=== PATIENT | female | born 1935 | race Caucasian/White ===

== ENCOUNTER 2018-10-08 10:57 | Inpatient (IN) | payer MEDICARE ==
[~2018-10-08] VITALS: Ht 157.5 cm; Wt 52.1 kg
[2018-10-08] VITALS (9 sets, daily range): BP systolic 113–157; BP diastolic 65–86; O2SAT 96
[2018-10-08] MEDS ORDERED: FURO20TA2 PO (13:01)
[2018-10-08] MEDS ORDERED: NITR2OI TOP (13:01)
[2018-10-08] MEDS ORDERED: PRED10TA2 PO (13:01)
[2018-10-08] MEDS ORDERED: POTA20TA6 PO (13:01)
[2018-10-08] MEDS ORDERED: DOXY100T PO (13:01)
[2018-10-08] MEDS ORDERED: CEFT1INJ5 INJ (13:01)
[2018-10-08] MEDS ORDERED: OMEP-221 PO (13:01)
[2018-10-08] MEDS ORDERED: METO50TA7 PO (13:01)
[2018-10-08] MEDS ORDERED: MELO7.5T35 PO (13:01)
[2018-10-08] MEDS ORDERED: FLON1SPR (13:01)
[2018-10-08] MEDS ORDERED: ZETI10TA30 PO (13:01)
[2018-10-08] MEDS ORDERED: COMBAER6 INH (13:01)
[2018-10-08] MEDS ORDERED: CLAR10CA3 PO (13:01)
[2018-10-08] MEDS ORDERED: METO5INJ15 IV (13:01)
[2018-10-08] MEDS ORDERED: METH40VIAL IM (13:01)
[2018-10-08] MEDS ORDERED: SYMB16INH INH (13:01)
[2018-10-08] MEDS ORDERED: PRED5TA PO (13:01)
[2018-10-08] MEDS ORDERED: FERR325T18 PO (13:01)
[2018-10-08] MEDS ORDERED: CART180C3 PO (13:01)
[2018-10-08 13:03] LABS: ABG BASE EXCESS 0.7 (-2.0-2.0); ABG HCO3 27.3 MEQ/L (22.0-26.0); ABG O2 SATURATION 94.4 % (95.0-99.0); ABG PARTIAL PRESSURE CO2 52.3 mmHg (35.0-45.0); ABG PARTIAL PRESSURE O2 76.7 mmHg (75.0-100.0); ABG TOTAL CO2 28.9 MEQ/L (23.0-31.0); ABG pH (ARTERIAL) 7.336 UNITS (7.350-7.450)
[2018-10-08 13:05] LABS: HEMATOCRIT 37.9 % (36.0-47.0); HEMOGLOBIN 12.1 g/dl (12.0-15.5); MEAN CORPUSCULAR HGB CONC 31.9 g/dl (32.0-36.5); PLATELET COUNT, AUTOMATED 342 10^3/uL (150-450); RED BLOOD COUNT 4.03 10^6/uL (4.00-5.40); WHITE BLOOD COUNT 21.5 10^3/uL (4.0-10.0)
--- NOTE | 2018-10-08 13:09 | ECGEPIP ---
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 Sinus tachycardia Otherwise normal Electronically Signed On 10-08-2018 13:08:57 EDT by Zack Zuluaga
--- NOTE | 2018-10-08 13:13 | REP ---
Portable chest x-ray: Single view. History: Shortness of breath. No comparison study. Findings: There are areas of increased parenchymal opacity in both lung bases consistent with bibasilar pneumonia. The upper lobes are clear. Heart is not felt to be enlarged. The aorta is tortuous and somewhat calcific. No significant bony abnormality. There is diffuse osteopenia. Impression: Bilateral lower lobe infiltrates consistent with pneumonia. Electronically Signed by Juan David Rawls MD 10/08/2018 01:05 P
[2018-10-08] MEDS ORDERED: LEVALBUTEROL 1.25 MG/0.5 ML CONCENTRATE NEB INH PRN (13:15)
[2018-10-08 13:32] LABS: ALBUMIN 3.4 GM/DL (3.2-5.2); BILIRUBIN,TOTAL 0.4 MG/DL (0.2-1.0); CALCIUM LEVEL 8.8 MG/DL (8.8-10.2); CREATININE FOR GFR 1.12 MG/DL (0.55-1.30); GLOMERULAR FILTRATION RATE 49.6 (>32); MB/CK RELATIVE INDEX 13.5 (< OR =4); POTASSIUM SERUM 4.4 MEQ/L (3.5-5.1); TOTAL PROTEIN 6.2 GM/DL (6.4-8.2); TROPONIN I 1.05 NG/ML (< 0.10)
[2018-10-08] MEDS ORDERED: methylPREDNISolone INJ 125 MG/2 ML VIAL (J2930) IV SCH (14:00)
[2018-10-08] MEDS ORDERED: DOXYCYCLINE HYCLATE 100 MG in D5W MINI-BAG PLUS 100 ML IV SCH (14:00)
--- NOTE | 2018-10-08 14:36 | HPE ---
DATE OF ADMISSION: 10/08/2018 PRIMARY CARE PROVIDER: Dr. Verma/Dr. Baker in [place]. CHIEF COMPLAINT: Shortness of breath. HISTORY OF PRESENT ILLNESS: This is an 83-year-old, DO NOT RESUSCITATE, DO NOT INTUBATE female who follows with Dr. Jim Lucas at [facility] for end stage chronic obstructive pulmonary disease (COPD) and on chronic 2 liters of oxygen for the past 3 year, presents to the emergency room with a 1 week complaint of worsening shortness of breath, increase in sputum production that is greenish in color and without fever but with subjective chills. The patient has not had any sick exposures despite nebulizer treatments every 4 hours at home, the patient has had worsening symptoms, prompting her to present to the emergency room at [facility]. The patient had been treated as an outpatient with prednisone and doxycycline with no relief. She was with her granddaughter and has had dyspnea on exertion with 10 to 15 feet difficulty with ambulation due to shortness of breath. The patient otherwise denies any rhinorrhea or sore throat. She denies any diarrhea. She has had decreased oral intake due to the respiratory distress. She then presented to the emergency room at [facility] at approximately 8:00 a.m. and was given Xopenex inhalers with no significant improvement. Arterial blood gas at this time showed respiratory acidosis requiring bilevel positive airway pressure (BIPAP) therapy, which she had for about 3 hours. The patient was subsequently transferred to [facility] for pulmonary referral. On arrival, the patient appeared to be comfortable on 2 liters of oxygen. She has had less distress according to the granddaughter present at the bedside. She otherwise denies any chest pain, pressure or tightness, lightheadedness or dizziness, but did complain of some palpitations and was then noted to have sinus tachycardia with a ventricular rate of 120 to 130 on the telemetry unit. The patient's blood pressure was well maintained at 107 to about 115. Arterial blood gas is still pending at [facility]. The patient has had similar episodes in the past, about 7 years according to the family. She denies any prior history of coronary artery disease, myocardial infarction or congestive heart failure (CHF). She usually has no lower extremity edema. Has had no recent weight gain. Aside from decrease in appetite, the patient otherwise denies any dysuria, urgency or frequency. No sick contacts. She denies any muscle aches but complains of shoulder pain, which she attributes to arthritis. Electrocardiogram (EKG) at the bedside shows right axis deviation with ventricular rate of [address]-T wave changes, supraventricular tachycardia (SVT). Chest x-ray is still pending. Hospitalist was called to admit for acute hypoxic and hypercarbic respiratory failure, which improved with BiPAP therapy at [facility] and acute COPD exacerbation. PAST MEDICAL HISTORY: 1. COPD, emphysema. 2. Hypertension. 3. History of fibroid uterus with hysterectomy. 4. Hypercholesterolemia. PAST SURGICAL HISTORY: 1. Appendectomy. 2. Tubal ligation. 3. Bladder suspension. 4. Fibroid removal with hysterectomy. 5. Breast lumpectomy, which was benign. ALLERGIES: OLANZAPINE, AMOXICILLIN, ATORVASTATIN, LEVAQUIN. HOME MEDICATIONS: Please see below. FAMILY HISTORY: Noncontributory due to age. SOCIAL HISTORY: Currently lives with her granddaughter. Quit smoking April 1998, previously smoked 1-1/2 packs per day for 60 years. Healthcare proxy is Ari Loving, phone number is [phone]. The patient is DO NOT RESUSCITATE, DO NOT INTUBATE. Medical Orders for Life Sustaining Treatment (MOLST) form has been signed. Granddaughter and the nurse present. REVIEW OF SYSTEMS: As per history of present illness, 12-point system is otherwise negative. PHYSICAL EXAMINATION: VITAL SIGNS: Temperature 97.9, pulse 118 and sinus, respiratory rate 25, blood pressure 115/60, 94% on 2 liters nasal cannula. GENERAL: The patient is in mild respiratory distress. She is sitting at 90 degrees with respiratory distress. There is no nasal flaring. No tracheal deviation. No pallor or icterus. No jugular venous distention (JVD). She was able to speak in complete sentences. Mild conversational dyspnea. She has poor dentition with false teeth. LUNGS: Diminished. Expiratory wheezing with prolonged expiration. Increase in AP diameter. HEART: S1, S2. Sinus tachycardia. ABDOMEN: Scaphoid. Positive bowel sounds in all four quadrants. No hepatosplenomegaly. EXTREMITIES: No pitting edema, cyanosis. EKG showed sinus rhythm with ventricular rate of 122, right axis deviation. No acute ST-T wave changes. LABORATORY DATA: White count 21.5, hemoglobin 12, hematocrit 37, platelets 342. Metabolic panel, liver function tests, cardiac markers, procalcitonin are all pending, as well as lactic acid. Arterial blood gas showed pH of 7.336, CO2 of 52, O2 of 76, bicarbonate 27. Blood cultures pending. Urinalysis is pending. Chest x-ray is pending. ASSESSMENT AND PLAN: This is an 83-year-old female with a past medical history significant for hypertension, chronic obstructive pulmonary disease (COPD), history of breast lumpectomy, who presents with acute hypoxic, hypercarbic respiratory failure and was transferred from [facility] to [facility]. ACUTE ISSUES: 1. Acute chronic obstructive pulmonary disease (COPD) exacerbation. The patient will be given Solu-Medrol, nebulizer treatments every 4 hours and every 2 hours as needed. Continue on oxygen and titrate to 88 to 92%. Depending on blood gas, we will consult pulmonary. 2. Hypertension, resume on home medications. Current blood pressure is adequate. 3. History of breast tumor, which was negative, status post lumpectomy. 4. Chronic hypoxic respiratory failure on 2 liters of home oxygen. Continue with the same. 5. 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 6. Deep vein thrombosis (DVT) prophylaxis with renally dosed Lovenox. CODE STATUS: DO NOT RESUSCITATE, DO NOT INTUBATE.
[2018-10-08] MEDS ORDERED: DIGOXIN INJ 0.5 MG/2 ML AMP (J1160) IV STA (14:42)
[2018-10-08] MEDS: LEVALBUTEROL 1.25 MG/0.5 ML CONCENTRATE NEB INH SCH ×2 (15:30→20:25)
[2018-10-08] MEDS: IPRATROPIUM 0.02% SOLN 0.5MG/2.5 ML NEB NEB SCH ×2 (15:51→20:24)
[2018-10-08] MEDS ORDERED: CLOPIDOGREL 75 MG TAB PO STA (17:42)
[2018-10-08] MEDS ORDERED: AZITHROMYCIN INJ 500 MG, VIAL MATE ADAPTER 1 EACH in D5W 250 ML IV ONE (17:45)
[2018-10-08] MEDS ORDERED: NITROGLYCERIN 0.4 MG SUBL TABLET SL PRN (17:45)
[2018-10-08] MEDS ORDERED: methylPREDNISolone INJ 125 MG/2 ML VIAL (J2930) IV ONE (17:45)
[2018-10-08] MEDS ORDERED: ASPIRIN 81 MG CHEW TABLET PO ONE (17:45)
[2018-10-08] MEDS ORDERED: LEVALBUTEROL 1.25 MG/0.5 ML CONCENTRATE NEB NEB ONE (17:45)
--- NOTE | 2018-10-08 17:48 | IPNPDOC ---
Date Seen The patient was seen on 10/08/18. Progress Note ASSESSMENT/PLAN: NSTEMI: -c/o sob, elevated card ruffin -rx: prn ntg for chest pain, asa, plavix, lovenox. statin -cycle card ruffin, ekg -check echo B/L BIBASILAR HCAP -transferred from [facility] -at risk for MRSA infection -check MRSA screen -allergic to zosyn, meropenem renally dosed TACHYARRHYTMIA -Recheck EKG -correct hypoxia with treatment for copd with solumedrol, nebs, o2 repeat o2 sat. -check d-dimer, CT chest to r/o PE if stable. if unstable, on lovenox for NSTEMI. VS, I&O, 24H, Fishbone Vital Signs/I&O Vital Signs Date Time Temp Pulse Resp B/P (MAP) Pulse Ox O2 Delivery O2 Flow Rate FiO2 10/08/18 16:00 2.0 10/08/18 15:00 135 28 119/78 (92) 93 10/08/18 11:50 97.9 Laboratory Data 24H LABS Laboratory Tests 2 10/08/18 12:52: Blood Gas Bicarbonate Standard 25.0, Arterial Blood pH 7.336L, Arterial Blood Partial Pressure CO2 52.3H, Arterial Blood Partial Pressure O2 76.7, Arterial Blood Total CO2 28.9, Arterial Blood HCO3 27.3H, Arterial Blood Base Excess 0.7, Arterial Blood Oxygen Saturation 94.4L 10/08/18 12:56: Nucleated Red Blood Cells % (auto) 0.0, Anion Gap 7L, Glomerular Filtration Rate 49.6, Lactic Acid Level 2.0, Blood Urea Nitrogen 25H, Creatinine 1.12, Sodium Level 135L, Potassium Level 4.4, Chloride Level 98, Carbon Dioxide Level 30, Calcium Level 8.8, Aspartate Amino Transf (AST/SGOT) 29, Alanine Aminotransferase (ALT/SGPT) 32, Total Creatine Kinase 103, Alkaline Phosphatase 66, Total Bilirubin 0.4, Total Protein 6.2L, Albumin 3.4, Creatine Kinase MB 14.0H, Creatine Kinase MB Relative Index 13.50H, Troponin I 1.05H, Albumin/Globulin Ratio 1.21 10/08/18 13:47: Urine Color TL, Urine Appearance HAZY, Urine pH 5.0, Urine Specific [place] 1.014, Urine Protein 2+H, Urine Glucose (UA) NEGATIVE, Urine Ketones NEGATIVE, Urine Blood NEGATIVE, Urine Nitrite NEGATIVE, Urine Bilirubin NEGATIVE, Urine Urobilinogen 0.2, Urine Leukocyte Esterase NEGATIVE, Urine WBC (Auto) 17H, Urine RBC (Auto) 4H, Urine Hyaline Casts (Auto) 12, Urine Bacteria (Auto) 1+H, Urine Squamous Epithelial Cells 1, Urine Granular Casts (Auto) 55, Urine Mucus (Auto) SMALL, Urine Sperm (Auto) CBC/BMP Laboratory Tests 10/08/18 12:56 Red Blood Count 4.03, Mean Corpuscular Volume 94.0, Mean Corpuscular Hemoglobin 30.0, Mean Corpuscular Hemoglobin Concent 31.9 L, Red Cell Distribution Width 12.9, Calcium Level 8.8, Aspartate Amino Transf (AST/SGOT) 29, Alanine Aminotra nsferase (ALT/SGPT) 32, Total Creatine Kinase 103, Alkaline Phosphatase 66, Total Bilirubin 0.4, Total Protein 6.2 L, Albumin 3.4 Microbiology Microbiology 10/08/18 Blood Culture, Received Pending 10/08/18 Respiratory Virus Panel (PCR) (MAY) - Final, Complete Parainfluenza 3 (Piv3) 10/08/18 Urine Culture, Received Pending HETAL ALMANZAR MD Oct 08, 2018 17:48
[2018-10-08 18:00] LABS: ABG BASE EXCESS -1.4 (-2.0-2.0); ABG HCO3 25.9 MEQ/L (22.0-26.0); ABG O2 SATURATION 88.8 % (95.0-99.0); ABG PARTIAL PRESSURE CO2 54.5 mmHg (35.0-45.0); ABG STANDARD HCO3 23.1 MEQ/L (22.0-26.0); ABG TOTAL CO2 27.6 MEQ/L (23.0-31.0); ABG pH (ARTERIAL) 7.295 UNITS (7.350-7.450)
[2018-10-08] MEDS: ENOXAPARIN 60 MG/0.6 ML SYR (J1650) SC SCH (18:38)
[2018-10-08 19:04] LABS: MB/CK RELATIVE INDEX 12.83 (< OR =4); TROPONIN I 1.12 NG/ML (< 0.10)
[2018-10-08] MEDS: MEROPENEM INJ 500 MG in APPROPRIATE DILUENT 1 EA IV SCH (20:00)
[2018-10-08 21:13] LABS: ABG BASE EXCESS 4.4 (-2.0-2.0); ABG HCO3 29.9 MEQ/L (22.0-26.0); ABG O2 SATURATION 97.1 % (95.0-99.0); ABG PARTIAL PRESSURE CO2 48.2 mmHg (35.0-45.0); ABG PARTIAL PRESSURE O2 95.4 mmHg (75.0-100.0); ABG STANDARD HCO3 28.4 MEQ/L (22.0-26.0); ABG TOTAL CO2 31.3 MEQ/L (23.0-31.0)
[2018-10-09] VITALS (16 sets, daily range): BP systolic 103–162; BP diastolic 63–103; O2SAT 97–98
[2018-10-09 00:33] LABS: MB/CK RELATIVE INDEX 16.99 (< OR =4); TROPONIN I 1.79 NG/ML (< 0.10)
[2018-10-09] MEDS: LEVALBUTEROL 1.25 MG/0.5 ML CONCENTRATE NEB INH SCH ×6 (00:42→20:05)
[2018-10-09] MEDS: IPRATROPIUM 0.02% SOLN 0.5MG/2.5 ML NEB NEB SCH ×6 (00:48→20:05)
[2018-10-09] MEDS ORDERED: DIGOXIN INJ 0.5 MG/2 ML AMP (J1160) IV STA (02:36)
[2018-10-09] MEDS: MEROPENEM INJ 500 MG in APPROPRIATE DILUENT 1 EA IV SCH ×3 (04:30→19:56)
--- NOTE | 2018-10-09 05:49 | IPNPDOC ---
Text Note Date of Service The patient was seen on 10/09/18. NOTE NIGHT FLOAT NOTE Patient noted to have a rising troponin overnight from 1.12 to 1.79. Chart reviewed. Patient examined in ICU and noted to be comfortable and at rest. No chest pain. She is already being treated for NSTEMI. Given that she is here for COPD exacerbation, will continue withholding beta olesya. Given her fragile condition, she is likely not a candidate for cardiac cath currently, noting her respiratory failure currently requiring BiPAP. She is due to have repeat cardiac markers in the morning. Will await am labs and consider consulting Cardio. Later through the night, patient reported to be tachycardic and symptomatic with heart rate in 150s, feeling short of breath and racing heart. One time doses of digoxin and Cardizem were ordered. Patient initially received Cardizem and returned back to heart rate in 90s and symptoms resolved as well. Digoxin was not needed and DC'd. VS,Fishbone, I+O VS, Fishbone, I+O Laboratory Tests 10/08/18 12:56 Red Blood Count 4.03, Mean Corpuscular Volume 94.0, Mean Corpuscular Hemoglobin 30.0, Mean Corpuscular Hemoglobin Concent 31.9 L, Red Cell Distribution Width 12.9, Calcium Level 8.8, Aspartate Amino Transf (AST/SGOT) 29, Alanine Aminotransferase (ALT/SGPT) 32, Total Creatine Kinase 103, Alkaline Phosphatase 66, Total Bilirubin 0.4, Total Protein 6.2 L, Albumin 3.4 Vital Signs Date Time Temp Pulse Resp B/P (MAP) Pulse Ox O2 Delivery O2 Flow Rate FiO2 10/09/18 04:00 98 BIPAP/CPAP 30 10/09/18 03:00 101 136/65 (88) 10/09/18 02:31 32 10/09/18 00:00 97.4 10/08/18 18:00 2.0 I&O- Last 24 Hours up to 6 AM 10/09/18 06:00 Intake Total 590 ml Output Total 950 ml Balance -360 ml GME ATTESTATION GME ATTESTATION My faculty preceptor for this patient encounter was physically present during the encounter and was fully available. All aspects of the patient interview, examination, medical decision making process, and medical care plan development were reviewed and approved by the faculty preceptor. The faculty preceptor is aware and concurs with the plan as stated in the body of this note and will attest to such by his/her cosignature. NILA GUTIÉRREZ DO Oct 09, 2018 05:49
[2018-10-09] MEDS: ENOXAPARIN 60 MG/0.6 ML SYR (J1650) SC SCH ×2 (06:00→18:47)
[2018-10-09] MEDS: methylPREDNISolone INJ 125 MG/2 ML VIAL (J2930) IV SCH ×3 (06:00→11:06)
[2018-10-09 06:20] LABS: HEMATOCRIT 35.7 % (36.0-47.0); HEMOGLOBIN 11.6 g/dl (12.0-15.5); MEAN CORPUSCULAR HGB CONC 32.5 g/dl (32.0-36.5); MEAN CORPUSCULAR VOLUME 92.2 fl (80.0-96.0); PLATELET COUNT, AUTOMATED 296 10^3/uL (150-450); RED BLOOD COUNT 3.87 10^6/uL (4.00-5.40); WHITE BLOOD COUNT 13.5 10^3/uL (4.0-10.0)
[2018-10-09 06:43] LABS: BLOOD UREA NITROGEN 26 MG/DL (7-18); CALCIUM LEVEL 8.6 MG/DL (8.8-10.2); CARBON DIOXIDE LEVEL 31 MEQ/L (21-32); CHLORIDE LEVEL 98 MEQ/L (98-107); CPK CREATINE PHOSPHOKINASE 64 U/L (26-192); CREATININE FOR GFR 0.72 MG/DL (0.55-1.30); GLOMERULAR FILTRATION RATE > 60.0 (>32); GLUCOSE, FASTING 119 MG/DL (70-100); POTASSIUM SERUM 4.2 MEQ/L (3.5-5.1); SODIUM LEVEL 135 MEQ/L (136-145); TROPONIN I 1.28 NG/ML (< 0.10)
[2018-10-09 06:50] LABS: MB/CK RELATIVE INDEX 18.12 (< OR =4)
[2018-10-09] MEDS: FORMOTEROL FUMARATE 20 MCG/2 ML INHALATION SOLUTION (PERFOROMIST) INH SCH ×2 (08:00→20:00)
[2018-10-09] MEDS: TIOTROPIUM INHALER/CAPSULE (SPIRIVA) INH SCH (08:00)
[2018-10-09] MEDS: CLOPIDOGREL 75 MG TAB PO SCH (08:56)
[2018-10-09] MEDS: AZITHROMYCIN 250 MG TAB PO SCH (08:57)
[2018-10-09] MEDS: ASPIRIN 81 MG CHEW TABLET PO SCH (08:57)
[2018-10-09] MEDS: CARVedilol 3.125 MG TAB PO SCH ×2 (08:57→21:24)
--- NOTE | 2018-10-09 11:39 | IPNPDOC ---
Date Seen The patient was seen on 10/09/18. Progress Note SUBJECTIVE: pt was placed on bipap due to acute respiratory acidosis managed by pulm Dr. Wu. Due to demand-mediated ischemia with NSTEMI and new dx of bibasilar PNA, pt was treated with abx, antiplatelets. She feels much better this morning. She continues to have sob, but without chest pain, pressure, and tightness. nofevers overnight.denies any chills. nonproductive cough. OBJECTIVE PHYSICAL EXAMINATION: VITAL SIGNS: pls see below. BIPAP GENERAL: cachectic The patient is in respiratory distress. She is sitting at 90 degrees No tracheal deviation No pallor or icterus. No jugular venous distention (JVD). conversational dyspnea. LUNGS: Diminished. Expiratory wheezing with prolonged expiration. Increase in AP diameter. HEART: S1, S2. Sinus tachycardia. ABDOMEN: Scaphoid. Positive bowel sounds in all four quadrants. No hepatosplenomegaly. EXTREMITIES: No pitting edema, cyanosis. LABORATORY DATA, IMAGING STUDIES, MICROBIOLOGY: PLS SEE BELOW ASSESSMENT AND PLAN: This is an 83-year-old female with a past medical history significant for hypertension, chronic obstructive pulmonary disease (COPD), history of breast lumpectomy, who presents with acute hypoxic, hypercarbic respiratory failure and was transferred from [facility] to [facility]. Demand-mediated Ischemia /NSTEMI -due to bibasilar HCAP, parinfluenza, Acute respiratory acidosis, acute COPD exacerbation -c/o sob, elevated card ruffin -rx: prn ntg for chest pain, asa, plavix, lovenox. statin, coreg -cycle card ruffin, ekg -check echo B/L BIBASILAR HCAP -transferred from [facility] -at risk for MRSA infection -check MRSA screen -allergic to zosyn, meropenem renally dosed, AND azithromycin for atypicals. -check legionells, strep pneumo, sputum cx Parainfluenza viral infection -complicating acute copd exacerbation and acute respiratory acidosis -supportive care -supplemental o2 TACHYARRHYTMIA -Recheck EKG -correct hypoxia with treatment for copd with solumedrol, nebs, o2 repeat o2 sat. -check d-dimer, CT chest to r/o PE if stable. if unstable, on lovenox for NSTEMI. Acute chronic obstructive pulmonary disease (COPD) exacerbation. The patient will be given Solu-Medrol, nebulizer treatments every 4 hours and every 2 hours as needed. Continue on oxygen and titrate to 88 to 92%. Depending on blood gas, we will consult pulmonary. Hypertension, resume on home medications. Current blood pressure is adequate. History of breast tumor, which was negative, status post lumpectomy. Chronic hypoxic respiratory failure on 2 liters of home oxygen. Continue with the same. 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 Deep vein thrombosis (DVT) prophylaxis with renally dosed Lovenox. CODE STATUS: DO NOT RESUSCITATE, DO NOT INTUBATE. VS, I&O, 24H, [facility] Vital Signs/I&O Vital Signs Date Time Temp Pulse Resp B/P (MAP) Pulse Ox O2 Delivery O2 Flow Rate FiO2 10/09/18 08:57 141/71 10/09/18 08:13 30 10/09/18 08:00 98.9 25 97 2.0 10/09/18 06:00 102 10/09/18 04:00 BIPAP/CPAP I&O- Last 24 Hours up to 6 AM 10/09/18 06:00 Intake Total 590 ml Output Total 1010 ml Balance -420 ml Laboratory Data 24H LABS Laboratory Tests 2 10/08/18 12:52: Blood Gas Bicarbonate Standard 25.0, Arterial Blood pH 7.336L, Arterial Blood Partial Pressure CO2 52.3H, Arterial Blood Partial Pressure O2 76.7, Arterial Blood Total CO2 28.9, Arterial Blood HCO3 27.3H, Arterial Blood Base Excess 0.7, Arterial Blood Oxygen Saturation 94.4L 10/08/18 12:56: Nucleated Red Blood Cells % (auto) 0.0, Anion Gap 7L, Glomerular Filtration Rate 49.6, Lactic Acid Level 2.0, Blood Urea Nitrogen 25H, Creatinine 1.12, Sodium Level 135L, Potassium Level 4.4, Chloride Level 98, Carbon Dioxide Level 30, Calcium Level 8.8, Aspartate Amino Transf (AST/SGOT) 29, Alanine Aminotransferase (ALT/SGPT) 32, Total Creatine Kinase 103, Alkaline Phosphatase 66, Total Bilirubin 0.4, Total Protein 6.2L, Albumin 3.4, Creatine Kinase MB 14.0H, Creatine Kinase MB Relative Index 13.50H, Troponin I 1.05H, Albumin/Globulin Ratio 1.21 10/08/18 13:47: Urine Color TL, Urine Appearance HAZY, Urine pH 5.0, Urine Specific [place] 1.014, Urine Protein 2+H, Urine Glucose (UA) NEGATIVE, Urine Ketones NEGATIVE, Urine Blood NEGATIVE, Urine Nitrite NEGATIVE, Urine Bilirubin NEGATIVE, Urine Urobilinogen 0.2, Urine Leukocyte Esterase NEGATIVE, Urine WBC (Auto) 17H, Urine RBC (Auto) 4H, Urine Hyaline Casts (Auto) 12, Urine Bacteria (Auto) 1+H, Urine Squamous Epithelial Cells 1, Urine Granular Casts (Auto) 55, Urine Mucus (Auto) SMALL, Urine Sperm (Auto) 10/08/18 17:49: Blood Gas Bicarbonate Standard 23.1, Arterial Blood pH 7.295L, Arterial Blood Partial Pressure CO2 54.5H, Arterial Blood Partial Pressure O2 62.0L, Arterial Blood Total CO2 27.6, Arterial Blood HCO3 25.9, Arterial Blood Base Excess -1.4, Arterial Blood Oxygen Saturation 88.8L 10/08/18 18:05: 10/08/18 18:14: D-Dimer, Quantitative 3515.82H, Total Creatine Kinase 138, Creatine Kinase MB 18.0H, Creatine Kinase MB Relative Index 12.83H, Troponin I 1.12H, [id number] Natriuretic Peptide 6831H 10/08/18 21:07: Blood Gas Bicarbonate Standard 28.4H, Arterial Blood pH 7.410, Arterial Blood Partial Pressure CO2 48.2H, Arterial Blood Partial Pressure O2 95.4, Arterial Blood Total CO2 31.3H, Arterial Blood HCO3 29.9H, Arterial Blood Base Excess 4.4H, Arterial Blood Oxygen Saturation 97.1 10/08/18 23:48: Total Creatine Kinase 83, Creatine Kinase MB 14.0H, Creatine Kinase MB Relative Index 16.99H, Troponin I 1.79#*H 10/09/18 05:56: Nucleated Red Blood Cells % (auto) 0.0, Anion Gap 6L, Glomerular Filtration Rate > 60.0, Blood Urea Nitrogen 26H, Creatinine 0.72, Sodium Level 135L, Potassium Level 4.2, Chloride Level 98, Carbon Dioxide Level 31, Calcium Level 8.6L, Total Creatine Kinase 64, Creatine Kinase MB 12.0H, Creatine Kinase MB Relative Index 18.12H, Troponin I 1.28#H CBC/BMP Laboratory Tests 10/08/18 12:56 Red Blood Count 4.03, Mean Corpuscular Volume 94.0, Mean Corpuscular Hemoglobin 30.0, Mean Corpuscular Hemoglobin Concent 31.9 L, Red Cell Distribution Width 12.9, Calcium Level 8.8, Aspartate Amino Transf (AST/SGOT) 29, Alanine Aminotransferase (ALT/SGPT) 32, Total Creatine Kinase 103, Alkaline Phosphatase 66, Total Bilirubin 0.4, Total Protein 6.2 L, Albumin 3.4 10/09/18 05:56 Red Blood Count 3.87 L, Mean Corpuscular Volume 92.2, Mean Corpuscular Hemoglobin 30.0, Mean Corpuscular Hemoglobin Concent 32.5, Red Cell Distribution Width 12.9, Calcium Level 8.6 L, Total Creatine Kinase 64 Microbiology Microbiology 10/08/18 Blood Culture, Received Pending 10/09/18 Gram Stain - Final, Resulted 10/09/18 Sputum Culture, Resulted Pending 10/08/18 MRSA Screen, Received Pending 10/08/18 Respiratory Virus Panel (PCR) (MAY) - Final, Complete Parainfluenza 3 (Piv3) 10/08/18 Urine Culture - Final, Complete HETAL ALMANZAR MD Oct 09, 2018 11:33
[2018-10-09 12:52] LABS: MB/CK RELATIVE INDEX 16.98 (< OR =4); TROPONIN I 1.25 NG/ML (< 0.10)
--- NOTE | 2018-10-09 13:39 | CR ---
DATE OF CONSULTATION: 10/09/2018 I was asked by Dr. Jamil to urgently evaluate Ms. Madeline Parsons for acute on chronic hypercapnic and hypoxemic respiratory failure. Ms. Parsons is an 83-year-old female who I first heard about from [facility]. She had presented there yesterday with worsened shortness of breath and had acute on chronic hypercapnic failure with a pCO2 of around 7.18. Apparently she initially refused noninvasive mechanical ventilation and they were going to intubate her. However, they waited for a repeat blood after having given her multiple nebulizations and intravenous corticosteroids. Her blood gas at that time was improved to I believe around 7.25. They were going to try to reintroduce noninvasive mechanical ventilation at that time. Later, when we heard back it was reported to me that she again declined it, but they repeated another gas and at this point she was 7.31 on 2.5 liters and was felt stable for transport. When she first arrived here she was doing well and no intervention was thought necessary. In fact, her initial blood gas after arrival here was 7.34 and 52. Later in the day, she appeared to have worsening respiratory distress and a repeat blood gas at that time had shown a pH of 7.30 and 55. It was at that point that we asked to intervene with noninvasive mechanical ventilation. At this time, she was accepting of the mask and tolerated it well overnight. A repeat blood gas on that device had shown normalization several hours after starting it. This morning, she feels much better. In fact, she does not recall even going to [facility] yesterday. She still does not feel at baseline. Ms. Parsons perhaps a week ago with a cough productive or green sputum, subjective chills and worsening shortness of breath. She was seen a couple of days prior to her presentation yesterday and was given a prednisone burst and placed on doxycycline. When her symptoms worsened, she was brought to the emergency department. At her baseline she states that she can do her own house cleaning. She has 12 stairs up to her bedroom and she can walk up the stairs, and does not always need to stop part way, but often does. She does use the handrail to go upstairs. She believes that she can walk around a hospital room 3-4 times when she is well. She also believes she can speak and sentences that are 4-5 words in length. She has been on oxygen for at least 2 years continuously and was on it at night before that. She reports that she uses 3.5 to 4 liters at baseline and increases that to 5 when she ambulates. She is followed by Dr. Lucas as an outpatient. In reviewing the medications on admission, assuming they are complete, she is on Symbicort 160/4.5 and prednisone daily in addition to nebulized and MDI rescue medications. She denies chest pain or pressure, nausea, emesis. She does not believe she has been febrile. No lower extremity edema. She denies orthopnea or paroxysmal nocturnal dyspnea (PND). She does note leaning forward slightly when she is sitting. She can sleep relatively flat with a neck cushion. She feels her cough is improved, but again not back to baseline. ALLERGIES: 1. ALENDRONATE SODIUM. 2. AMOXICILLIN. 3. ATORVASTATIN. 4. IBANDRONATE SODIUM. 5. LEVOFLOXACIN. 6. QUININE. 7. RISEDRONATE SODIUM. I do not know what happens with these medications. PAST MEDICAL HISTORY: 1. 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 Lucas. 2. Hypertension. 3. History of fibroid uterus with hysterectomy. 4. Dyslipidemia. 5. Status post appendectomy. 6. Status post tubal ligation. 7. Status post bladder suspension. 8. History of tobacco usage. 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 She is a former smoker but states she has not smoked in over 20 years. Prior to that, however, she smoked 1-1/2 packs for 60 years giving her a 90 pack year history. She does not drink alcohol. FAMILY HISTORY: She has a sister with Parkinson's disease. She believes her grandfather may have also had Parkinson's disease. Her mother had heart disease. She believes her father was relatively health. REVIEW OF SYSTEMS: As per HPI. Remainder of pertinent review of systems are negative. PHYSICAL EXAMINATION: GENERAL: Ms. Parsons is lying in bed in mild respiratory distress. She is using supraclavicular muscles. She is able to complete short sentences, perhaps 5-7 works. VITAL SIGNS: Temperature 98.9, which is her T-max. Respiratory rate 25, blood pressure 141/71 with a MAP of 94. SpO2 is 97% on 3 liters by nasal cannula. Pulse 102. HEENT: Anicteric. Pupils equal, round, and reactive to light and accommodation. Nares: Patient bilaterally. Oropharynx clear. Moist mucosa. Neck supple, without thyromegaly or masses, trachea is midline. She has hypertrophied supraclavicular muscles. LYMPH: Without cervical or supraclavicular lymphadenopathy. CHEST: Increased AP diameter. LUNGS: Symmetric excursion, markedly diminished air entry. No wheeze, rhonchi or crackles on tidaled excursion. Prolonged expiratory phase. Uses supraclavicular muscles. No retractions. CARDIOVASCULAR: Tachycardic, regular rhythm with occasional ectopic beat. Normal S1 and S2. No murmur, rub or gallop appreciated. Unable to appreciate PMI. ABDOMEN: Positive bowel sounds. Soft, nondistended. Nontender. No hepatosplenomegaly or masses appreciated. EXTREMITIES: Without clubbing, cyanosis, or significant edema. NEURO: Alert, awake and oriented times three. PSYCHIATRIC: Affect appropriate. LABORATORY DATA: CBC shows a hemoglobin of 11.6, hematocrit 35.7, platelet count 296,000, white blood cell count 13,500. Chemistries show sodium 135, potassium 4.2, chloride 98, bicarbonate 31, anion gap 6, BUN 26, creatinine 0.7, glucose 119, calcium 8.6, CK 65, CK-MB 12, troponin I 1.28 with a max troponin I of 1.79. ProBNP yesterday was 6831. Other laboratory values from 10/08 include a total bilirubin of 0.4, AST 29, ALT 32, alkaline phosphatase 66, CK 103, total protein 6.2, and albumin of 3.4. Arterial blood gas after being on noninvasive mechanical ventilation at 16/ was 7.41/48/95 with a measured saturation of 97.1 and a base excess of 4.4. Yesterday 's intake and output was 420 in and 650 out making her -230. Thus far today, 230 in and 495 out making her -265. I reviewed her chest x-ray while as well as the report from 10/08/2018. That x-ray showed normal appearing cardiac silhouette, perhaps slightly enlarged pulmonary vascular shadows. There is increased markings in both lower lobes. There is scoliosis. IMPRESSION: 1. Acute on chronic hypercapnic respiratory failure secondary to COPD exacerbation. 2. COPD exacerbation secondary to pneumonia. 3. Bilateral infiltrates consistent with a pneumonic process. 4. COPD with hypercapnia and hypoxemia at baseline, followed by Dr. Lucas. 5. Elevated troponin, likely secondary to demand ischemia. 6. Hypertension. 7. Deep vein thrombosis (DVT) prophylaxis with renally dosed Lovenox. 8. Nutrition, one COPD diet. Body habitus consistent with pulmonary cachexia. RECOMMENDATIONS: 1. I agree with antibiotic coverage. At the present time she is on meropenem and azithromycin. 2. Would send sputum culture and no antibiotics when possible. 3. Will begin to wean the systemic corticosteroids. 4. Will also being to wean NIMV. Given that she has hypertrophied musculature and likely uses accessory muscles at baseline, and speaks short sentences and likely tripods, will need to her guidance and her family to guide assist when she gets closer to baseline. 5. Will obtain Dr. Lucas's most recent records on Thursday. Critical care time 35 minutes, not including procedure time.
--- NOTE | 2018-10-09 18:18 | ECGEPIP ---
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
--- NOTE | 2018-10-09 18:21 | ECGEPIP ---
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
[2018-10-09 18:30] LABS: MB/CK RELATIVE INDEX 15.09 (< OR =4); TROPONIN I 1.14 NG/ML (< 0.10)
[2018-10-09] MEDS ORDERED: ALPRAZolam 0.25 MG TAB PO ONE (19:30)
[2018-10-09] MEDS: ATORVASTATIN 10 MG TAB PO SCH (21:23)
[2018-10-10] VITALS (18 sets, daily range): BP systolic 115–174; BP diastolic 64–88; O2SAT 97–98
[2018-10-10] MEDS: methylPREDNISolone INJ 125 MG/2 ML VIAL (J2930) IV SCH ×2 (00:07→11:38)
[2018-10-10] MEDS: IPRATROPIUM 0.02% SOLN 0.5MG/2.5 ML NEB NEB SCH ×5 (00:24→14:31)
[2018-10-10] MEDS: LEVALBUTEROL 1.25 MG/0.5 ML CONCENTRATE NEB INH SCH ×7 (00:24→23:59)
[2018-10-10 01:09] LABS: MB/CK RELATIVE INDEX 17.39 (< OR =4); TROPONIN I 1.78 NG/ML (< 0.10)
[2018-10-10] MEDS: MEROPENEM INJ 500 MG in APPROPRIATE DILUENT 1 EA IV SCH ×3 (04:32→20:07)
[2018-10-10 04:53] LABS: HEMATOCRIT 37.4 % (36.0-47.0); MEAN CORPUSCULAR HEMOGLOBIN 29.7 pg (27.0-33.0); MEAN CORPUSCULAR HGB CONC 32.1 g/dl (32.0-36.5); MEAN CORPUSCULAR VOLUME 92.6 fl (80.0-96.0); PLATELET COUNT, AUTOMATED 366 10^3/uL (150-450); RED BLOOD COUNT 4.04 10^6/uL (4.00-5.40); WHITE BLOOD COUNT 13.4 10^3/uL (4.0-10.0)
[2018-10-10 05:27] LABS: BLOOD UREA NITROGEN 38 MG/DL (7-18); CARBON DIOXIDE LEVEL 32 MEQ/L (21-32); CHLORIDE LEVEL 99 MEQ/L (98-107); CPK CREATINE PHOSPHOKINASE 38 U/L (26-192); CREATININE FOR GFR 0.75 MG/DL (0.55-1.30); GLOMERULAR FILTRATION RATE > 60.0 (>32); GLUCOSE, FASTING 120 MG/DL (70-100); MB/CK RELATIVE INDEX 18.42 (< OR =4); POTASSIUM SERUM 4.3 MEQ/L (3.5-5.1); SODIUM LEVEL 135 MEQ/L (136-145); TROPONIN I 1.14 NG/ML (< 0.10)
[2018-10-10] MEDS: ENOXAPARIN 60 MG/0.6 ML SYR (J1650) SC SCH ×2 (05:59→17:26)
--- NOTE | 2018-10-10 07:05 | ECHO ---
DATE OF PROCEDURE: 10/09/2018 Date of : 1935 Age: 83 Gender: Female Height: 62 inches Weight: 112 pounds Body surface area: 1.49 meters squared Inpatient: Intensive care unit (ICU), room 3202 REFERRING PHYSICIAN: Dr. Dyan Jamil INDICATION: Abnormal EKG. MEASUREMENTS: 2D measurements: RV: 3.1 cm LV: 3.3 cm Septum: 1.1 cm Posterior wall: 1.1 cm Aortic root: 2.7 cm LA: 3.2 cm LVEF: 75% DOPPLER MEASUREMENTS: AV: 1.2 meters per second LVOT: 1.0 meters per second LVOT diameter: 1.9 cm MV-E: 107 Early mitral deceleration time: 175 milliseconds E prime: 8, E/E prime ratio: 8.9 PV: 1.0 meters per second Pulmonary artery acceleration time: 99 milliseconds PASP: 34 mmHg IVC: 1.2 cm COMMENTS: Underlying atrial fibrillation with somewhat rapid ventricular response. No intraventricular conduction disturbance. Technically challenging study in light of the patient's body habitus but some diagnostically useful information was still obtained. M-mode and two-dimensional echocardiography was performed with pulsed, continuous wave, color flow and tissue Doppler studies. Normal left ventricular size, wall thickness and hyperkinetic wall motion. Normal left atrial size. Unable to assess left ventricular (LV) diastolic function in light of atrial fibrillation but estimated mean left atrial pressure was within normal limits. Normal right heart chamber sizes and motion with borderline to mild pulmonary hypertension. Normal inferior vena cava (IVC) size and collapse against an elevated central venous pressure. Aortic valvular sclerosis without functional valvular abnormality. Normal aortic root size. Moderate mitral annular calcification without functional valvular abnormality. No apparent intracardiac mass or pericardial effusion.
[2018-10-10] MEDS ORDERED: AMIODARONE HCL 150 MG in APPROPRIATE DILUENT 1 EA IV STA (07:59)
[2018-10-10] MEDS: FORMOTEROL FUMARATE 20 MCG/2 ML INHALATION SOLUTION (PERFOROMIST) INH SCH ×2 (08:06→19:15)
[2018-10-10] MEDS: CARVedilol 3.125 MG TAB PO SCH (08:16)
[2018-10-10] MEDS: CLOPIDOGREL 75 MG TAB PO SCH (08:16)
[2018-10-10] MEDS: AZITHROMYCIN 250 MG TAB PO SCH (08:16)
[2018-10-10] MEDS: ASPIRIN 81 MG CHEW TABLET PO SCH (08:16)
[2018-10-10] MEDS: TIOTROPIUM INHALER/CAPSULE (SPIRIVA) INH SCH (11:03)
[2018-10-10] MEDS: ACETAMINOPHEN TAB 650MG DOSE (2X325MG) PO PRN (12:25)
[2018-10-10 12:34] LABS: MB/CK RELATIVE INDEX 18.75 (< OR =4); TROPONIN I 0.78 NG/ML (< 0.10)
[2018-10-10] MEDS: ALPRAZolam 0.25 MG TAB PO SCH ×3 (12:57→21:22)
--- NOTE | 2018-10-10 13:07 | IPNPDOC ---
Date Seen The patient was seen on 10/10/18. Progress Note SUBJECTIVE: Pt was seen and examined at bedside. She c/o severe fatigue and weakness. She c/o headache without changes in vision, chest pain. pt was placed on bipap due to acute respiratory acidosis managed by pulm Dr. Wu. Due to demand-mediated ischemia with NSTEMI and new dx of bibasilar PNA, pt was treated with abx, antiplatelets. She feels much better this morning. She continues to have sob, but without chest pain, pressure, and tightness. nofevers overnight.denies any chills. nonproductive cough. OBJECTIVE PHYSICAL EXAMINATION: VITAL SIGNS: pls see below. BIPAP GENERAL: cachectic The patient is in respiratory distress. She is sitting at 90 degrees No tracheal deviation No pallor or icterus. No jugular venous distention (JVD). conversational dyspnea. LUNGS: Diminished. Expiratory wheezing with prolonged expiration. Increase in AP diameter. HEART: S1, S2. Sinus tachycardia. ABDOMEN: Scaphoid. Positive bowel sounds in all four quadrants. No hepatosplenomegaly. EXTREMITIES: No pitting edema, cyanosis. LABORATORY DATA, IMAGING STUDIES, MICROBIOLOGY: PLS SEE BELOW 10/09/18 ECHO: Underlying atrial fibrillation with somewhat rapid ventricular response. No intraventricular conduction disturbance. Technically challenging study in light of the patient's body habitus but some diagnostically useful information was still obtained. M-mode and two-dimensional echocardiography was performed with pulsed, continuous wave, color flow and tissue Doppler studies. Normal left ventricular size, wall thickness and hyperkinetic wall motion. Normal left atrial size. Unable to assess left ventricular (LV) diastolic function in light of atrial fibrillation but estimated mean left atrial pressure was within normal limits. Normal right heart chamber sizes and motion with borderline to mild pulmonary hypertension. Normal inferior vena cava (IVC) size and collapse against an elevated central venous pressure. Aortic valvular sclerosis without functional valvular abnormality Normal aortic root size. Moderate mitral annular calcification without functional valvular abnormality. No apparent intracardiac mass or pericardial effusion. DD: Zack Zuluaga MD, [facility] 10/09/18 1551 DT: [facility] 10/10/18 0655 DS: DARSHAN 10/10/18 3218 <Electronically signed by Zack Zuluaga > 10/10/18 9865 DS2: ASSESSMENT AND PLAN: This is an 83-year-old female with a past medical history significant for hypertension, chronic obstructive pulmonary disease (COPD), history of breast lumpectomy, who presents with acute hypoxic, hypercarbic respiratory failure and was transferred from [facility] to [facility]. Demand-mediated Ischemia /NSTEMI -due to bibasilar HCAP, parinfluenza, Acute respiratory acidosis, acute COPD exacerbation -c/o sob, elevated card ruffin -rx: prn ntg for chest pain, asa, plavix, lovenox. statin, coreg -reviewed serial card ruffin, ekg -reviewed echo -10/09/18 ECHO: Underlying atrial fibrillation with somewhat rapid ventricular response. No intraventricular conduction disturbance. Technically challenging study in light of the patient's body habitus but some diagnostically useful information was still obtained. M-mode and two-dimensional echocardiography was performed with pulsed, continuous wave, color flow and tissue Doppler studies. Normal left ventricular size, wall thickness and hyperkinetic wall motion. Normal left atrial size. Unable to assess left ventricular (LV) diastolic function in light of atrial fibrillation but estimated mean left atrial pressure was within normal limits. Normal right heart chamber sizes and motion with borderline to mild pulmonary hypertension. Normal inferior vena cava (IVC) size and collapse against an elevated central venous pressure. Aortic valvular sclerosis without functional valvular abnormality Normal aortic root size. Moderate mitral annular calcification without functional valvular abnormality. No apparent intracardiac mass or pericardial effusion. B/L BIBASILAR HCAP -transferred from [facility] -at risk for MRSA infection -check MRSA screen -allergic to zosyn, meropenem renally dosed, AND azithromycin for atypicals. -check legionells, strep pneumo, sputum cx Parainfluenza viral infection -complicating acute copd exacerbation and acute respiratory acidosis -supportive care -supplemental o2 TACHYARRHYTMIA -Recheck EKG -correct hypoxia with treatment for copd with solumedrol, nebs, o2 repeat o2 sat. -check d-dimer, CT chest to r/o PE if stable. if unstable, on lovenox for NSTEMI. Acute chronic obstructive pulmonary disease (COPD) exacerbation. The patient will be given Solu-Medrol, nebulizer treatments every 4 hours and every 2 hours as needed. Continue on oxygen and titrate to 88 to 92%. Depending on blood gas, we will consult pulmonary. Hypertension, resumed on home medications. Headache: PRN tylenol. optimize bp meds. History of breast tumor, which was negative, status post lumpectomy. Chronic hypoxic respiratory failure on 2 liters of home oxygen. Continue with the same. Mild pulmonary hypertension, complicating care Pulmonary cachexia, Body Mass Index (BMI) of 20.8, nutrition consultation. Deep vein thrombosis (DVT) prophylaxis with renally dosed Lovenox. CODE STATUS: DO NOT RESUSCITATE, DO NOT INTUBATE. VS[facility] Sign[facility]/I&O Vital Signs Date Time Temp Pulse Resp B/P (MAP) Pulse Ox O2 Delivery O2 Flow Rate FiO2 10/10/18 12:00 98.4 104 25 162/81 (108) 96 4.0 10/10/18 08:07 30 10/10/18 04:06 BIPAP/CPAP I&O- Last 24 Hours up to 6 AM 10/10/18 06:00 Intake Total 640 ml Output Total 1020 ml Balance -380 ml Laboratory Data 24H LABS Laboratory Tests 2 10/09/18 17:56: Total Creatine Kinase 53, Creatine Kinase MB 8.0H, Creatine Kinase MB Relative Index 15.09H, Troponin I 1.14H 10/10/18 00:15: Total Creatine Kinase 46, Creatine Kinase MB 8.0H, Creatine Kinase MB Relative Index 17.39H, Troponin I 1.78#*H 10/10/18 04:21: Total Creatine Kinase 38, Creatine Kinase MB 7.0H, Creatine Kinase MB Relative Index 18.42H, Troponin I 1.14#H, Nucleated Red Blood Cells % (auto) 0.0, Anion Gap 4L, Glomerular Filtration Rate > 60.0, Blood Urea Nitrogen 38H, Creatinine 0.75, Sodium Level 135L, Potassium Level 4.3, Chloride Level 99, Carbon Dioxide Level 32, Calcium Level 9.0 10/10/18 11:54: Total Creatine Kinase 32, Creatine Kinase MB 6.0H, Creatine Kinase MB Relative Index 18.75H, Troponin I 0.78#H CBC/BMP Laboratory Tests 10/10/18 04:21 Red Blood Count 4.04, Mean Corpuscular Volume 92.6, Mean Corpuscular Hemoglobin 29.7, Mean Corpuscular Hemoglobin Concent 32.1, Red Cell Distribution Width 12.7, Calcium Level 9.0, Total Creatine Kinase 38 Microbiology Microbiology 10/08/18 Blood Culture - Preliminary, Resulted No growth after 24 hours . All specim... 10/09/18 Gram Stain - Final, Resulted 10/09/18 Sputum Culture, Resulted Pending 10/08/18 MRSA Screen - Final, Complete 10/08/18 Respiratory Virus Panel (PCR) (MAY) - Final, Complete Parainfluenza 3 (Piv3) 10/08/18 Urine Culture - Final, Complete HETAL ALMANZAR MD Oct 10, 2018 13:07
[2018-10-10] MEDS ORDERED: CARVedilol 3.125 MG TAB PO ONE (16:15)
[2018-10-10] MEDS: hydrALAZINE INJ 20 MG/ML VIAL IV SCH ×2 (16:31→20:09)
[2018-10-10 18:44] LABS: MB/CK RELATIVE INDEX 13.15 (< OR =4); TROPONIN I 0.61 NG/ML (< 0.10)
[2018-10-10] MEDS: ATORVASTATIN 10 MG TAB PO SCH (21:22)
[2018-10-10] MEDS: CARVedilol 6.25 MG TAB PO SCH (21:23)
[2018-10-11] VITALS (8 sets, daily range): BP systolic 118–172; BP diastolic 61–104
[2018-10-11] MEDS: hydrALAZINE INJ 20 MG/ML VIAL IV SCH ×6 (00:15→20:15)
[2018-10-11] MEDS: LEVALBUTEROL 1.25 MG/0.5 ML CONCENTRATE NEB INH SCH ×6 (03:39→23:26)
[2018-10-11] MEDS: MEROPENEM INJ 500 MG in APPROPRIATE DILUENT 1 EA IV SCH ×3 (03:43→20:47)
[2018-10-11 04:52] LABS: HEMATOCRIT 36.1 % (36.0-47.0); HEMOGLOBIN 11.4 g/dl (12.0-15.5); MEAN CORPUSCULAR HGB CONC 31.6 g/dl (32.0-36.5); MEAN CORPUSCULAR VOLUME 91.9 fl (80.0-96.0); PLATELET COUNT, AUTOMATED 366 10^3/uL (150-450); RED BLOOD COUNT 3.93 10^6/uL (4.00-5.40); WHITE BLOOD COUNT 9.3 10^3/uL (4.0-10.0)
[2018-10-11 05:41] LABS: ALBUMIN 2.6 GM/DL (3.2-5.2); ALT/SGPT 63 U/L (12-78); BILIRUBIN,DIRECT 0.1 MG/DL (0.0-0.2); BILIRUBIN,TOTAL 0.3 MG/DL (0.2-1.0); BLOOD UREA NITROGEN 39 MG/DL (7-18); CALCIUM LEVEL 8.3 MG/DL (8.8-10.2); CARBON DIOXIDE LEVEL 31 MEQ/L (21-32); CHLORIDE LEVEL 102 MEQ/L (98-107); CREATININE FOR GFR 0.66 MG/DL (0.55-1.30); GLOMERULAR FILTRATION RATE > 60.0 (>32); GLUCOSE, FASTING 112 MG/DL (70-100); POTASSIUM SERUM 4.3 MEQ/L (3.5-5.1); SODIUM LEVEL 139 MEQ/L (136-145); TOTAL PROTEIN 5.6 GM/DL (6.4-8.2)
[2018-10-11] MEDS: ENOXAPARIN 60 MG/0.6 ML SYR (J1650) SC SCH ×2 (05:57→17:16)
[2018-10-11] MEDS: FORMOTEROL FUMARATE 20 MCG/2 ML INHALATION SOLUTION (PERFOROMIST) INH SCH ×2 (07:17→19:47)
[2018-10-11] MEDS: TIOTROPIUM INHALER/CAPSULE (SPIRIVA) INH SCH (07:17)
[2018-10-11] MEDS: ASPIRIN 81 MG CHEW TABLET PO SCH (08:18)
[2018-10-11] MEDS: ALPRAZolam 0.25 MG TAB PO SCH ×3 (08:18→21:00)
[2018-10-11] MEDS: CARVedilol 6.25 MG TAB PO SCH (08:19)
[2018-10-11] MEDS: CLOPIDOGREL 75 MG TAB PO SCH (08:19)
[2018-10-11] MEDS: AZITHROMYCIN 250 MG TAB PO SCH (08:19)
[2018-10-11] MEDS ORDERED: CARVedilol 6.25 MG TAB PO ONE (09:30)
[2018-10-11 09:49] LABS: CPK CREATINE PHOSPHOKINASE 26 U/L (26-192); MB/CK RELATIVE INDEX 15.38 (< OR =4); TROPONIN I 0.34 NG/ML (< 0.10)
--- NOTE | 2018-10-11 10:24 | IPNPDOC ---
Date Seen The patient was seen on 10/11/18. Progress Note SUBJECTIVE: Pt was seen and examined at bedside. Yesterday, She c/o headache without changes in vision, chest pain, and was found to have uncontrolled blood pressure, given increased dose of coreg and iv hydralazine with improvement in sbp and resolution of headache. She still c/o severe fatigue and weakness. pt was placed on bipap due to acute respiratory acidosis 48hrs after admission, managed by pulm Dr. Wu. Pt has been off bipap for about 12hrous now and is conversing comfortably without distress, and mentating well answering questions adequately. Due to demand-mediated ischemia with NSTEMI and new dx of bibasilar PNA, pt was treated with abx, antiplatelets, and anticoagulant lovenox with decreasing cardiac markers and no c/o chest pain or pressure. . She feels much better this morning. nofevers overnight.denies any chills. nonproductive cough. OBJECTIVE PHYSICAL EXAMINATION: VITAL SIGNS: pls see below. GENERAL: cachectic. No tracheal deviation No pallor or icterus. No jugular venous distention (JVD). no conversational dyspnea. sitting at the bedside chatting with her nurse. LUNGS: Diminished. faint scattered Expiratory wheezing with prolonged expirati on. Increase in AP diameter. HEART: S1, S2. Sinus tachycardia. ABDOMEN: Scaphoid. Positive bowel sounds in all four quadrants. No hepatosplenomegaly. EXTREMITIES: No pitting edema, cyanosis. LABORATORY DATA, IMAGING STUDIES, MICROBIOLOGY: PLS SEE BELOW 10/09/18 ECHO: Underlying atrial fibrillation with somewhat rapid ventricular response. No intraventricular conduction disturbance. Technically challenging study in light of the patient's body habitus but some diagnostically useful information was still obtained. M-mode and two-dimensional echocardiography was performed with pulsed, co ntinuous wave, color flow and tissue Doppler studies. Normal left ventricular size, wall thickness and hyperkinetic wall motion. Normal left atrial size. Unable to assess left ventricular (LV) diastolic function in light of atrial fibrillation but estimated mean left atrial pressure was within normal limits. Normal right heart chamber sizes and motion with borderline to mild pulmonary hypertension. Normal inferior vena cava (IVC) size and collapse against an elevated central venous pressure. Aortic valvular sclerosis without functional valvular abnormality Normal aortic root size. Moderate mitral annular calcification without functional valvular abnormality. No apparent intracardiac mass or pericardial effusion. DD: Zack Zuluaga MD, [facility] 10/09/18 1551 DT: [facility] 10/10/18 0655 DS: DARSHAN 10/10/18 0845 <Electronically signed by Zack Zuluaga > 10/10/1821 DS2: ASSESSMENT AND PLAN: This is an 83-year-old female with a past medical history significant for hypertension, chronic obstructive pulmonary disease (COPD), history of breast lumpectomy, who presents with acute hypoxic, hypercarbic respiratory failure and was transferred from [facility] to [facility]. Demand-mediated Ischemia /NSTEMI -due to bibasilar HCAP, parinfluenza, Acute respiratory acidosis, acute COPD exacerbation -c/o sob, elevated card ruffin -rx: prn ntg for chest pain, asa, plavix, lovenox. statin, coreg -reviewed serial card ruffin, ekg -reviewed echo -10/09/18 ECHO: Underlying atrial fibrillation with somewhat rapid ventricular response. No intraventricular conduction disturbance. Technically challenging study in light of the patient's body habitus but some diagnostically useful information was still obtained. M-mode and two-dimensional echocardiography was performed with pulsed, continuous wave, color flow and tissue Doppler studies. Normal left ventricular size, wall thickness and hyperkinetic wall motion. Normal left atrial size. Unable to assess left ventricular (LV) diastolic function in light of atrial fibrillation but estimated mean left atrial pressure was within normal limits. Normal right heart chamber sizes and motion with borderline to mild pulmonary hypertension. Normal inferior vena cava (IVC) size and collapse against an elevated central venous pressure. Aortic valvular sclerosis without functional valvular abnormality Normal aortic root size. Moderate mitral annular calcification without functional valvular abnormality. No apparent intracardiac mass or pericardial effusion. B/L BIBASILAR HCAP -transferred from [facility] -at risk for MRSA infection -check MRSA screen -allergic to zosyn, meropenem renally dosed, AND azithromycin for atypicals. -check legionells, strep pneumo, sputum cx Parainfluenza viral infection -complicating acute copd exacerbation and acute respiratory acidosis -supportive care -supplemental o2 TACHYARRHYTMIA -Recheck EKG -correct hypoxia with treatment for copd with solumedrol, nebs, o2 repeat o2 sat. -check d-dimer, CT chest to r/o PE if stable. if unstable, on lovenox for NSTEMI. Acute chronic obstructive pulmonary disease (COPD) exacerbation. The patient will be given Solu-Medrol, nebulizer treatments every 4 hours and every 2 hours as needed. Continue on oxygen and titrate to 88 to 92%. Depending on blood gas, we will consult pulmonary. Hypertension, resumed on home medications. Headache: PRN tylenol. optimize bp meds. History of breast tumor, which was negative, status post lumpectomy. Chronic hypoxic respiratory failure on 2 liters of home oxygen. Continue with the same. Mild pulmonary hypertension, complicating care Pulmonary cachexia, Body Mass Index (BMI) of 20.8, nutrition consultation. Deep vein thrombosis (DVT) prophylaxis with renally dosed Lovenox. CODE STATUS: DO NOT RESUSCITATE, DO NOT INTUBATE. VS, I&O, 24H, Fishbone Vital Signs/I&O Vital Signs Date Time Temp Pulse Resp B/P (MAP) Pulse Ox O2 Delivery O2 Flow Rate FiO2 10/11/18 08:19 132/104 10/11/18 08:00 98.0 88 20 97 2.0 10/11/18 05:25 30 10/10/18 04:06 BIPAP/CPAP I&O- Last 24 Hours up to 6 AM 10/11/18 06:00 Intake Total 1480 ml Output Total 1040 ml Balance 440 ml Laboratory Data 24H LABS Laboratory Tests 2 10/10/18 11:54: Total Creatine Kinase 32, Creatine Kinase MB 6.0H, Creatine Kinase MB Relative Index 18.75H, Troponin I 0.78#H 10/10/18 18:00: Total Creatine Kinase 38, Creatine Kinase MB 5.0H, Creatine Kinase MB Relative Index 13.15H, Troponin I 0.61#H 10/11/18 04:41: Nucleated Red Blood Cells % (auto) 0.0, Anion Gap 6L, Glomerular Filtration Rate > 60.0, Calcium Level 8.3L, Aspartate Amino Transf (AST/SGOT) 49H, Alanine Aminotransferase (ALT/SGPT) 63, Alkaline Phosphatase 65, Total Bilirubin 0.3, Direct Bilirubin 0.1, Total Protein 5.6L, Albumin 2.6#L, Albumin/Globulin Ratio 0.87L CBC/BMP Laboratory Tests 10/11/18 04:41 Red Blood Count 3.93 L, Mean Corpuscular Volume 91.9, Mean Corpuscular Hemoglobin 29.0, Mean Corpuscular Hemoglobin Concent 31.6 L, Red Cell Distribution Width 12.6 Microbiology Microbiology 10/08/18 Blood Culture - Preliminary, Resulted No Growth after 48 hours. All Specime... 10/09/18 Gram Stain - Final, Complete 10/09/18 Sputum Culture - Final, Complete Yeast Like Organism 10/08/18 MRSA Screen - Final, Complete 10/08/18 Respiratory Virus Panel (PCR) (MAY) - Final, Complete Parainfluenza 3 (Piv3) 10/08/18 Urine Culture - Final, Complete HETAL ALMANZAR MD Oct 11, 2018 09:00
[2018-10-11] MEDS: predniSONE 20 MG TAB PO SCH (13:35)
[2018-10-11 14:32] LABS: BODY FLUID CULTURE Not Indicated (.); LEGIONELLA ANTIGEN URINE Negative (Negative); ORGANISM ID Not indicated. (.); SPECIMEN SOURCE Urine (.); URINE STREP PNEUMONIAE ANTIGEN Positive (Negative)
[2018-10-11] MEDS ORDERED: PILL CRUSHER/CUTTER 1 EACH XX PRN (20:00)
[2018-10-11] MEDS: CARVedilol 12.5 MG TAB PO SCH (21:00)
[2018-10-11] MEDS: CAPTOpril 6.25 MG PER 1/2 TABLET PO SCH (21:00)
[2018-10-11] MEDS: ATORVASTATIN 10 MG TAB PO SCH (21:00)
[2018-10-12] VITALS: BP 117/68
[2018-10-12] MEDS: hydrALAZINE INJ 20 MG/ML VIAL IV SCH ×3 (00:15→08:15)
[2018-10-12] MEDS: LEVALBUTEROL 1.25 MG/0.5 ML CONCENTRATE NEB INH SCH ×6 (03:27→23:45)
[2018-10-12 04:00] VITALS: BP 154/67
[2018-10-12] MEDS: MEROPENEM INJ 500 MG in APPROPRIATE DILUENT 1 EA IV SCH ×3 (04:48→22:18)
[2018-10-12 05:20] LABS: HEMOGLOBIN 12.3 g/dl (12.0-15.5); MEAN CORPUSCULAR HEMOGLOBIN 29.4 pg (27.0-33.0); MEAN CORPUSCULAR HGB CONC 31.5 g/dl (32.0-36.5); MEAN CORPUSCULAR VOLUME 93.3 fl (80.0-96.0); PLATELET COUNT, AUTOMATED 432 10^3/uL (150-450); RED BLOOD COUNT 4.18 10^6/uL (4.00-5.40); WHITE BLOOD COUNT 9.7 10^3/uL (4.0-10.0)
[2018-10-12 05:41] LABS: BLOOD UREA NITROGEN 34 MG/DL (7-18); CALCIUM LEVEL 8.4 MG/DL (8.8-10.2); CARBON DIOXIDE LEVEL 32 MEQ/L (21-32); CHLORIDE LEVEL 103 MEQ/L (98-107); CREATININE FOR GFR 0.59 MG/DL (0.55-1.30); GLOMERULAR FILTRATION RATE > 60.0 (>32); GLUCOSE, FASTING 100 MG/DL (70-100); POTASSIUM SERUM 4.3 MEQ/L (3.5-5.1); SODIUM LEVEL 139 MEQ/L (136-145)
[2018-10-12] MEDS: ENOXAPARIN 60 MG/0.6 ML SYR (J1650) SC SCH ×2 (06:00→17:08)
[2018-10-12 08:00] VITALS: BP 137/68
[2018-10-12] MEDS: TIOTROPIUM INHALER/CAPSULE (SPIRIVA) INH SCH (08:06)
[2018-10-12] MEDS: FORMOTEROL FUMARATE 20 MCG/2 ML INHALATION SOLUTION (PERFOROMIST) INH SCH ×2 (08:07→20:50)
[2018-10-12] MEDS: ASPIRIN 81 MG CHEW TABLET PO SCH (08:57)
[2018-10-12] MEDS: ALPRAZolam 0.25 MG TAB PO SCH ×3 (08:58→21:19)
[2018-10-12] MEDS: CLOPIDOGREL 75 MG TAB PO SCH (08:58)
[2018-10-12] MEDS: AZITHROMYCIN 250 MG TAB PO SCH (09:00)
[2018-10-12] MEDS: CAPTOpril 6.25 MG PER 1/2 TABLET PO SCH ×2 (09:00→22:17)
[2018-10-12] MEDS: CARVedilol 12.5 MG TAB PO SCH ×2 (09:01→21:19)
[2018-10-12] MEDS: predniSONE 20 MG TAB PO SCH (09:01)
[2018-10-12 12:00] VITALS: BP 96/54
[2018-10-12 15:35] VITALS: BP 136/63
--- NOTE | 2018-10-12 17:38 | IPN ---
DATE: 10/12/2018 SUBJECTIVE: Patient is seen and examined in the room today. Patient does not have any acute complaints. Patient is not able to provide any sputum. Patient has been off bilevel positive airway pressure (BiPAP) since yesterday. OBJECTIVE: VITAL SIGNS: Temperature 98.7, pulse 99, respirations 19, blood pressure 137/68, pulse oximetry 99% with 2 liters nasal cannula. GENERAL: Patient is alert, awake, uncomfortable. HEENT: Normocephalic, atraumatic. Extraocular motor grossly intact. CARDIOVASCULAR: Positive S1, S2, regular rate. LUNGS: Clear to auscultation. Diminished breath sounds. ABDOMEN: Soft, nontender. Bowel sounds present. EXTREMITIES: No significant edema appreciated. LABORATORY DATA: WBC 9.7, hemoglobin is 12.3, hematocrit 39, platelet count is 432. Sodium 139, potassium 4.3, chloride 103, carbon dioxide is 32, BUN is 34, creatinine 0.59, GFR greater than 60, fasting glucose 100, calcium 8.4. ASSESSMENT AND PLAN: 1. Mnn-TR-oowlrsxam myocardial infarction (NSTEMI). Patient is being treated for parainfluenza, hospital-acquired pneumonia, and chronic obstructive pulmonary disease (COPD) exacerbation. Those are the causes for demand ischemia. Continue aspirin, Lipitor, beta olesya, Plavix, and Lovenox. 2. Bilateral bibasilar hospital-acquired pneumonia. Methicillin-resistant Staphylococcus aureus (MRSA) screen negative. Patient was transferred from [facility]. Sputum culture obtained from 09/22/2018 demonstrated yeast-like organism. Patient allergic to Zosyn. Streptococcus pneumoniae antibody level is positive. 3. Parainfluenza viral infection. Continue supportive care. Continue oxygen support. Continue to titrate oxygen requirement as tolerated. Patient has been off the BiPAP. 4. COPD exacerbation, on azithromycin, on breathing treatments, on by mouth steroids. 5. Sinus tachycardia. Heart rate in the satisfactory range. Continue to monitor. Patient is on carvedilol. 6. Hypertension, on Captopril, carvedilol. Blood pressure in the satisfactory range. 7. History of breast tumor, status post lumpectomy. 8. Mild pulmonary hypertension. 9. Deep vein thrombosis (DVT) prophylaxis, on Lovenox.
[2018-10-12] MEDS: ATORVASTATIN 10 MG TAB PO SCH (21:19)
[2018-10-12] MEDS: ACETAMINOPHEN TAB 650MG DOSE (2X325MG) PO PRN (21:20)
[2018-10-12 22:00] VITALS: BP 132/59
[2018-10-13] MEDS: LEVALBUTEROL 1.25 MG/0.5 ML CONCENTRATE NEB INH SCH ×5 (03:52→20:00)
[2018-10-13] MEDS: MEROPENEM INJ 500 MG in APPROPRIATE DILUENT 1 EA IV SCH ×3 (04:29→20:53)
[2018-10-13 06:00] VITALS: BP 141/65
[2018-10-13] MEDS: ENOXAPARIN 60 MG/0.6 ML SYR (J1650) SC SCH ×2 (06:09→17:32)
[2018-10-13 06:10] LABS: HEMATOCRIT 36.5 % (36.0-47.0); HEMOGLOBIN 11.4 g/dl (12.0-15.5); MEAN CORPUSCULAR HEMOGLOBIN 29.2 pg (27.0-33.0); MEAN CORPUSCULAR HGB CONC 31.2 g/dl (32.0-36.5); MEAN CORPUSCULAR VOLUME 93.6 fl (80.0-96.0); PLATELET COUNT, AUTOMATED 405 10^3/uL (150-450); WHITE BLOOD COUNT 9.5 10^3/uL (4.0-10.0)
[2018-10-13 06:39] LABS: BLOOD UREA NITROGEN 36 MG/DL (7-18); CALCIUM LEVEL 8.1 MG/DL (8.8-10.2); CARBON DIOXIDE LEVEL 32 MEQ/L (21-32); CHLORIDE LEVEL 103 MEQ/L (98-107); CREATININE FOR GFR 0.59 MG/DL (0.55-1.30); GLOMERULAR FILTRATION RATE > 60.0 (>32); GLUCOSE, FASTING 76 MG/DL (70-100); POTASSIUM SERUM 4.1 MEQ/L (3.5-5.1); SODIUM LEVEL 139 MEQ/L (136-145)
[2018-10-13] MEDS: AZITHROMYCIN 250 MG TAB PO SCH (09:03)
[2018-10-13] MEDS: CLOPIDOGREL 75 MG TAB PO SCH (09:03)
[2018-10-13] MEDS: ALPRAZolam 0.25 MG TAB PO SCH ×3 (09:03→20:52)
[2018-10-13] MEDS: predniSONE 20 MG TAB PO SCH (09:04)
[2018-10-13] MEDS: CARVedilol 12.5 MG TAB PO SCH ×2 (09:04→20:53)
[2018-10-13] MEDS: ASPIRIN 81 MG CHEW TABLET PO SCH (09:05)
[2018-10-13] MEDS: CAPTOpril 6.25 MG PER 1/2 TABLET PO SCH (09:05)
[2018-10-13] MEDS: TIOTROPIUM INHALER/CAPSULE (SPIRIVA) INH SCH (11:36)
[2018-10-13] MEDS: FORMOTEROL FUMARATE 20 MCG/2 ML INHALATION SOLUTION (PERFOROMIST) INH SCH ×2 (11:36→20:04)
[2018-10-13 14:00] VITALS: BP 127/63
--- NOTE | 2018-10-13 19:00 | IPNPDOC ---
Text Note Date of Service The patient was seen on 10/13/18. NOTE SUBJECTIVE: Patient is seen and examined in the room today. Patient still requires oxygen support. Denies fever or chill. Patient feels she is improving. OBJECTIVE: VITAL SIGNS: Listed below. GENERAL: Patient is alert, awake, uncomfortable. HEENT: Normocephalic, atraumatic. Extraocular motor grossly intact. CARDIOVASCULAR: Positive S1, S2, regular rate. LUNGS: Clear to auscultation. Diminished breath sounds. ABDOMEN: Soft, nontender. Bowel sounds present. EXTREMITIES: No significant edema appreciated. LABORATORY DATA: Listed below. ASSESSMENT AND PLAN: #. Bilateral bibasilar hospital-acquired pneumonia. - Methicillin-resistant Staphylococcus aureus (MRSA) screen negative. Patient was transferred from [facility]. Sputum culture obtained from 09/22/2018 demonstrated yeast-like organism. Patient is on meropenem. Streptococcus pneumoniae antibody level is positive. #. Parainfluenza viral infection. - Continue supportive care. Continue oxygen support. Continue to titrate oxygen requirement as tolerated. Patient has been off the BiPAP. #. Sid-KM-eqvuxohhu myocardial infarction (NSTEMI). - Patient is being treated for parainfluenza, hospital-acquired pneumonia, and chronic obstructive pulmonary disease (COPD) exacerbation. Those are the causes for demand ischemia. Continue aspirin, Lipitor, beta olesya, Plavix, and Lovenox. #. COPD exacerbation - on azithromycin, on breathing treatments, on tapering oral steroid. #. Sinus tachycardia. - Heart rate in the satisfactory range. Continue to monitor. Patient is on carvedilol. #. Hypertension, on Captopril, carvedilol. Blood pressure in the satisfactory range. #. History of breast tumor, status post lumpectomy. #. Mild pulmonary hypertension. #. Deep vein thrombosis (DVT) prophylaxis, on Lovenox. VS,Fishbone, I+O VS, Fishbone, I+O Laboratory Tests 10/13/18 05:29 Red Blood Count 3.90 L, Mean Corpuscular Volume 93.6, Mean Corpuscular Hemoglobin 29.2, Mean Corpuscular Hemoglobin Concent 31.2 L, Red Cell Distribution Width 12.7, Calcium Level 8.1 L Vital Signs Date Time Temp Pulse Resp B/P (MAP) Pulse Ox O2 Delivery O2 Flow Rate FiO2 4/24/19 14:00 97.4 85 18 127/63 (84) 99 2.0 10/11/18 05:25 30 10/10/18 04:06 BIPAP/CPAP I&O- Last 24 Hours up to 6 AM 10/13/18 06:00 Intake Total 600 ml Output Total 1025 ml Balance -425 ml SETH UMAÑA DO Oct 13, 2018 19:00
[2018-10-13] MEDS: ATORVASTATIN 10 MG TAB PO SCH (20:53)
[2018-10-13] MEDS ORDERED: CAPTOpril 3.125 MG PER 1/4 TABLET PO SCH (21:00)
[2018-10-13 22:00] VITALS: BP 138/67
[2018-10-14] MEDS: LEVALBUTEROL 1.25 MG/0.5 ML CONCENTRATE NEB INH SCH ×5 (04:00→15:30)
[2018-10-14] MEDS: MEROPENEM INJ 500 MG in APPROPRIATE DILUENT 1 EA IV SCH (04:01)
[2018-10-14] MEDS: ENOXAPARIN 60 MG/0.6 ML SYR (J1650) SC SCH (05:13)
[2018-10-14 06:00] VITALS: BP 122/59
[2018-10-14 06:25] LABS: HEMATOCRIT 36.7 % (36.0-47.0); HEMOGLOBIN 11.4 g/dl (12.0-15.5); MEAN CORPUSCULAR HEMOGLOBIN 29.5 pg (27.0-33.0); MEAN CORPUSCULAR HGB CONC 31.1 g/dl (32.0-36.5); MEAN CORPUSCULAR VOLUME 94.8 fl (80.0-96.0); PLATELET COUNT, AUTOMATED 446 10^3/uL (150-450); RED BLOOD COUNT 3.87 10^6/uL (4.00-5.40); WHITE BLOOD COUNT 13.1 10^3/uL (4.0-10.0)
[2018-10-14 06:44] LABS: BLOOD UREA NITROGEN 29 MG/DL (7-18); CALCIUM LEVEL 8.2 MG/DL (8.8-10.2); CARBON DIOXIDE LEVEL 34 MEQ/L (21-32); CHLORIDE LEVEL 103 MEQ/L (98-107); CREATININE FOR GFR 0.53 MG/DL (0.55-1.30); GLOMERULAR FILTRATION RATE > 60.0 (>32); GLUCOSE, FASTING 82 MG/DL (70-100); POTASSIUM SERUM 4.1 MEQ/L (3.5-5.1); SODIUM LEVEL 139 MEQ/L (136-145)
[2018-10-14] MEDS: TIOTROPIUM INHALER/CAPSULE (SPIRIVA) INH SCH (07:36)
[2018-10-14] MEDS: FORMOTEROL FUMARATE 20 MCG/2 ML INHALATION SOLUTION (PERFOROMIST) INH SCH (07:36)
[2018-10-14] MEDS ORDERED: predniSONE 10 MG TAB PO SCH (09:00)
[2018-10-14] MEDS: ALPRAZolam 0.25 MG TAB PO SCH ×2 (09:06→16:07)
[2018-10-14] MEDS: predniSONE 20 MG TAB PO SCH (09:06)
[2018-10-14 09:07] VITALS: BP 128/65
[2018-10-14] MEDS: CARVedilol 12.5 MG TAB PO SCH (09:07)
[2018-10-14] MEDS: CLOPIDOGREL 75 MG TAB PO SCH (09:08)
[2018-10-14] MEDS: ASPIRIN 81 MG CHEW TABLET PO SCH (09:08)
[2018-10-14] MEDS: AZITHROMYCIN 250 MG TAB PO SCH (09:08)
[2018-10-14 11:11] LABS: ABG BASE EXCESS 4.7 (-2.0-2.0); ABG HCO3 30.2 MEQ/L (22.0-26.0); ABG O2 SATURATION 96.2 % (95.0-99.0); ABG PARTIAL PRESSURE CO2 48.7 mmHg (35.0-45.0); ABG PARTIAL PRESSURE O2 85.9 mmHg (75.0-100.0); ABG STANDARD HCO3 28.7 MEQ/L (22.0-26.0); ABG TOTAL CO2 31.7 MEQ/L (23.0-31.0)
[2018-10-14] MEDS ORDERED: TIOT18INH INH (14:21)
[2018-10-14] MEDS ORDERED: PRED10TA2 PO (14:21)
[2018-10-14] MEDS ORDERED: LEVA12INH INH (14:21)
[2018-10-14] MEDS ORDERED: ATOR1TAB19 PO (14:21)
[2018-10-14] MEDS ORDERED: CLOP75TA2 PO (14:21)
[2018-10-14] MEDS ORDERED: CARV12.5 PO (14:21)
[2018-10-14] MEDS ORDERED: PERF20NE2 INH (14:21)
[2018-10-14] MEDS ORDERED: ASPI81CH8 PO (14:21)
[2018-10-14] MEDS ORDERED: AZIT-12 PO (14:22)
[2018-10-14] MEDS ORDERED: LASI20TA3 PO (14:23)
[2018-10-14 14:47] LABS: NT-PRO BNP 1122 PG/ML (<450)
[2018-10-14] MEDS ORDERED: MOBI4TAB PO (17:38)
[2018-10-14] MEDS ORDERED: LOSA100T50 PO (17:38)
[2018-10-14] MEDS ORDERED: FURO20TA2 PO (17:38)
--- NOTE | 2018-10-15 07:32 | DSES ---
DATE OF ADMISSION: 10/08/2018 DATE OF DISCHARGE: 10/14/2018 CONSULTANTS: Pulmonology. PRIMARY CARE PROVIDER: Dashawn Reason DISCHARGE DIAGNOSIS: Bilateral bibasilar hospital acquired pneumonia, parainfluenza infection, Non-STEMI, COPD exacerbation, sinus tachycardia, hypertension, history of breast tumor status-post lumpectomy, pulmonary hypertension. HOSPITALIZATION COURSE: The patient is an 83-year-old female who present to [facility] on 10/08/2018 with complaint of shortness of breath. Patient was admitted under hospitalist service for COPD exacerbation and started on the steroids and nebulizer treatments. Patient was found to have non-STEMI during the last work and patient was also found to have bibasilar hospital acquired pneumonia. Patient was transferred from [facility] due to worsening fevers. Pulmonology was consulted and patient still on Bi-Pap. Patient was eventually weaned off the Bi-Pap and steroids being titrated based on patient's respiration status. Patient continued working with physical therapy. On 10/14/2018, the patient is transferred to ARU to continue rehabilitation. Prior to discharge, pulmonology recommended long steroid taper for the patient. DISCHARGE VITAL SIGNS: Temperature 97.3, pulse 77, respirations 20, blood pressure 122/59, pulse ox 97% with a 2 liter nasal cannula. LABORATORY DATA: WBC 13.1, hemoglobin 14.4, hematocrit 36.7, platelet count is 446, sodium 139, potassium 4.1, chloride 103, carbon dioxide 34, BUN 29, creatinine 0.53, GFR greater than 60, fasting glucose 83, calcium 8.2, BNP 11/22, higher troponin during admission is 1.79, Urine strep and pneumo antigen is positive. Microbiology, blood culture from 10/08/2018 is negative for 5 days. Respiratory panel is positive for parainfluenza virus. Urine culture is negative. MRSA screen negative. Sputum culture 10/09/2018 showed yeast like organism. Chest x-ray showed bilateral lower lobe infiltrate consistent with a pneumonia. DISCHARGE MEDICATIONS: Symbicort 2 puff inhalation twice a day, Diltiazem 80 mg by mouth daily, Zetia 10 mg by mouth daily, ferrous sulfate 325 mg by mouth daily, Flonase 2 spray nasal daily as needed for nausea, Combivent 1 puff inhalation four times a day as needed, Claritin 10 mg by mouth daily, omeprazole 40 mg by mouth daily, potassium chloride 20 mEq by mouth daily. Tapering steroid: 30mg daily for 7 days then 20mg daily for 7 days then 10 mg daily for 7 days. DISCHARGE INSTRUCTIONS: Discontinue line, discharge the patient to acute rehabilitation. Activity per rehabilitation instruction, low salt diet as tolerated. Patient should followup with primary care provider in one week after the acute rehabilitation. Discharge time greater than 30 minutes. Discharge condition fair. MTDD
== END 2018-10-14 16:40 | DRG 193 ==
LOC: M ICU 12:06 → M MSPAV 10-12 15:29
PROVIDERS: ADMIT Internal Medicine; ATTEND Internal Medicine
DX: J18.9 Pneumonia, unspecified organism (principal); J96.22 Acute and chronic respiratory failure with hypercapnia; I21.4 Non-ST elevation (NSTEMI) myocardial infarction; E87.2 Acidosis; J96.11 Chronic respiratory failure with hypoxia; R64 Cachexia; J44.1 Chronic obstructive pulmonary disease with (acute) exacerbation; I27.20 Pulmonary hypertension, unspecified; Z79.899 Other long term (current) drug therapy; Z66 Do not resuscitate; E78.00 Pure hypercholesterolemia, unspecified; Z88.0 Allergy status to penicillin; Z88.8 Allergy status to other drugs, medicaments and biological substances; Z87.891 Personal history of nicotine dependence; Z68.20 Body mass index [BMI] 20.0-20.9, adult; I48.91 Unspecified atrial fibrillation; B34.8 Other viral infections of unspecified site

== ENCOUNTER 2018-10-14 15:17 | Inpatient (IN) | payer MEDICARE ==
[~2018-10-14] VITALS: Ht 157.5 cm; Wt 52.7 kg
[~2018-10-14 15:17] MED LIST: ASPI81CH8 PO; ATOR1TAB19 PO; AZIT-12 PO; CART180C3 PO; CARV12.5 PO; CEFT1INJ5 INJ; CLAR10CA3 PO; CLOP75TA2 PO; COMBAER6 INH; DOXY100T PO; FERR325T18 PO; FLON1SPR; FURO20TA2 PO; LASI20TA3 PO; LEVA12INH INH; MELO7.5T35 PO; METH40VIAL IM; METO50TA7 PO; METO5INJ15 IV; NITR2OI TOP; OMEP-221 PO; PERF20NE2 INH; POTA20TA6 PO; PRED10TA2 PO; PRED5TA PO; SYMB16INH INH; TIOT18INH INH; ZETI10TA30 PO
[2018-10-14] MEDS ORDERED: NITROGLYCERIN 0.4 MG SUBL TABLET SL PRN (16:30)
[2018-10-14] MEDS ORDERED: BISACODYL 10 MG SUPP PR PRN (16:30)
[2018-10-14] MEDS ORDERED: MOM 30ML SUSPENSION UDC PO PRN (16:30)
[2018-10-14 17:00] VITALS: BP 123/61
[2018-10-14] MEDS ORDERED: FURO20TA2 PO (17:38)
[2018-10-14] MEDS ORDERED: MOBI4TAB PO (17:38)
[2018-10-14] MEDS ORDERED: LOSA100T50 PO (17:38)
--- NOTE | 2018-10-14 18:08 | HPEPDOC ---
Print Production Associate Note DATE OF ADMISSION: Oct 14, 2018 at 16:45 SOURCE OF ADMISSION INFORMATION: [facility] records and patient CHIEF COMPLAINT: NSTEMI and Pneumonia HISTORY OF PRESENT ILLNESS: 83F pmh COPD on 2L 02 at home, HTN, and HLD who initially presented to [facility] with one week of cough and worsening dyspnea, was placed on antibiotics and nebulizer treatments without resolution of her symptoms where she was placed on BiPAP and transferred to [facility] ED on 10/08/18. On arrival CXR showed Bilateral lower lobe infiltrates consistent with pneumonia and nasal swab was positive for parainfluenza. She was admitted for acute hypoxic and hypercapnia with respiratory failure and started on IV Solumedrol in continued on BIPAP. She was found to have elevated cardiac markers and EKG findings without ST elevations for which she was placed on Lovenox for NSTEMI treatment. ECHO on 10/09/18 revealed, Normal left ventricular size, wall thickness and hyperkinetic wall motion. Normal left atrial size. Unable to assess left ventricular (LV) diastolic function in light of atrial fibrillation but estimated mean left atri al pressure was within normal limits. Pulmonology was consulted and it was recommended to continue Meropenem and Azithromycin and to wean off of systemic corticosteroids. She was evaluated by therapy and found to have deficiencies in gait and ADLs compared to her prior level of function and deemed medically appropriate for discharge to ARU on 10/14/18. REVIEW OF SYSTEMS: The following is a completed review of systems and has been reviewed. Review of systems otherwise unremarkable. PAIN: Patient self reports no pain EYES: Negative for recent vision loss EARS, NOSE, & THROAT: denies throat pain, rhinorrhea, or dysphagia CARDIOVASCULAR: denies chest pain or palpitations PULMONARY: +dyspnea at rest and cough GASTROINTESTINAL: negative for diarrhea or constipation GENITOURINARY: Negative for dysuria MUSCULOSKELETAL: general deconditioning NEUROLOGICAL:no tremor or seizure activity HEMATOLOGICAL: +anemia SKIN: +ecchymosis and thin skin PSYCHIATRIC: Unremarkable All other review of systems found to be negative. PAST MEDICAL HISTORY: as per HPI PAST SURGICAL HISTORY: Appendectomy, Tubal ligation, Bladder suspension, Fibroid removal with hysterectomy, Breast lumpectomy ALLERGIES: Please see below. MEDICATIONS: Please see below. SOCIAL HISTORY: ex-smoker with 90-pack years, no ETOH or illicit drugs DIET: low sodium PHYSICAL EXAMINATION: VITAL SIGNS: Please see below. GENERAL: Pleasant and cooperative. No acute distress, but dyspneic, thin HEENT: PERRL. Extraocular movements intact. Clear conjunctiva CARDIOVASCULAR: Regular rate and rhythm. No murmurs, rubs, or gallops LUNGS: Scattered Rhonchi throughout with porr inspiratory effort, No wheezes ABDOMEN: Soft, nontender, nondistended. Positive bowel sounds. Normal active bowel sounds. NEUROLOGICAL: Alert and oriented times three. Cranial nerves II through XII grossly intact. Sensation grossly intact in all 4 extremities EXTREMITIES: 5-\5 strength bilateral upper extremities. 5-\5 strength right lower extremity. 5-/5 strength in left lower extremity. SKIN: atrophied skin, scattered ecchymosis, left breast incision healed IMAGING: Imaging documentation personally reviewed by record. FUNCTIONAL STATUS: Premorbid: Independent with all activities of daily life as well as mobility On Admission:Able to walk 15 ft contact guard with RW with dyspnea, Mod-assist for bed mobility, Contact guard functional transfers GOALS: Mod-I with RW ambulating community distances, stair negotiation, Mod-I for bathing, toileting, dressing, medical optimization, assess for DME needs and family training. ASSESSMENT:83-year-old F with past medical history of COPD on home 02 who presents status post hospital acquired PNA with new diagnosis of Afib and recent NSTEMI. PLAN: 1. Rehab: PT, OT, assess for DMEs 2. Neuro: stable. monitor for delirium 3. cArdiac: NSTEMI due to cardiac demand in setting of COPD exacerbation and pneumonia- c/u ASA, Plavix, and Lovenox -ECHO showed Afib as well- will clarify with medicine anticoagulation for Afib specifically, however is currently therapeutic Lovenox -HTN c/u beta-olesya, and ADEN-I, Lasix added back from home medication on di scharge -HLD on Lipitor 4. resp: pmh COPD s/p recent hypercapneic, hypoxic respiratory failure, DNI, titrate 02 to 88-92%, c/u breathing treatments, +parainfluenza with PNA, c/u Azythromycin and steroid taper 5. GI ppx: will start protonix BID given patient on steroid taper, Lovenox, ASA and Plavix- FOBT ordered as well 6. DVT ppx: on full dose Lovenox- teds 7. : monitor PVRs, monitor for signs of UTI 8. Disp: TBD 9. DNR/DNI POST ADMISSION PHYSICIAN EVALUATION: Medical and functional status: Description of medical status, medical assessment: As above. Rehabilitation diagnosis and current and prior cold morbid medical conditions as above. Risk of complications and plans to mitigate them as above. Description of functional status current status is as above. Prior status as above. Status compared to preadmission: There are no clinically significant differences between the patient's current status and the information described on the preadmission screening document. Treatment plan anticipated: Treatment plan is as described above. Required disciplines including physical therapy, occupational therapy, others as noted above Intensity of services: 3 hours a day, 6 days a week. Special considerations: There are no specific special or safety considerations that would likely preclude immediate implementation of an intensive rehabilitation program or subsequently influence the plan of care. ATTESTATION: Considering all the information above, it is my best judgment that this patient requires intensive rehabilitation therapy as described above and an inpatient hospital environment due to the complexity of nursing, medical, and rehabilitation needs required by the patient. Furthermore, this patient can reasonably be expected to participate in an benefit from an inpatient r ehabilitation stay with an interdisciplinary team approach to the delivery of rehabilitation care under the direction and supervision of rehabilitation physician. PROGNOSIS: Good ESTIMATED LENGTH OF STAY:14-16 days. PROJECTED DISCHARGE DESTINATION: Home with family support and any durable medical equipment required to increase functional safety and mobility TIME SPENT COUNSELING AND COORDINATING INITIAL CARE: Greater than 70 minutes. Vital Signs Vital Sign - Last 24 Hours 10/14/18 17:00 Temp 98.7 Pulse 89 Resp 19 B/P (MAP) 123/61 (81) Pulse Ox 90 O2 Flow Rate 4.0 Home Medications Scheduled Budesonide/Formoterol (Symbicort 160-4.5 Mcg Inhaler) 6 Gm Hfa.aer.ad, 2 PUFF INH BID, (Reported) Diltiazem HCl (Cartia Xt) 180 Mg Cap.er.24h, 180 MG PO DAILY, (Reported) Ezetimibe (Zetia) 10 Mg Tablet, 10 MG PO DAILY, (Reported) Ferrous Sulfate (Ferrous Sulfate) 325 Mg Tablet, 325 MG PO DAILY, (Reported) Furosemide (Furosemide) 20 Mg Tablet, 40 MG PO DAILY, (Reported) Loratadine (Claritin) 10 Mg Capsule, 10 MG PO DAILY, (Reported) Losartan Potassium (Losartan Potassium) 100 Mg Tablet, 100 MG PO DAILY, (Reported) Meloxicam (Mobic) 7.5 Mg Tablet, 7.5 MG PO BID, (Reported) Omeprazole (Omeprazole) 40 Mg Capsule.dr, 40 MG PO DAILY, (Reported) Potassium Chloride (Potassium Chloride) 20 Meq Tab.er.prt, 20 MEQ PO DAILY, (Reported) Scheduled PRN Fluticasone Propionate (Flonase Allergy Relief) 9.9 Ml [place].susp, 2 SPRAY NA DAILY PRN for ALLERGIES, (Reported) Ipratropium/Albuterol Sulfate (Combivent Respimat 20-100 Mcg) 4 Gm Mist.inhal, 1 PUFF INH QID PRN for SHORTNESS OF BREATH, (Reported) Allergies Coded Allergies: alendronate sodium (Unverified Allergy, Unknown, 10/08/18) amoxicillin (Unverified Allergy, Unknown, 10/08/18) atorvastatin (Unverified Allergy, Unknown, 10/08/18) ibandronate sodium (Unverified Allergy, Unknown, 10/08/18) levofloxacin (Unverified Allergy, Unknown, 10/08/18) quinine (Unverified Allergy, Unknown, 10/08/18) risedronate sodium (Unverified Allergy, Unknown, 10/08/18) A-FIB/CHADSVASC A-FIB History Current/History of A-Fib/PAF?: Yes MELISA OCHOA MD Oct 14, 2018 18:08
[2018-10-14 20:00] VITALS: BP 150/72
[2018-10-14] MEDS: FORMOTEROL FUMARATE 20 MCG/2 ML INHALATION SOLUTION (PERFOROMIST) INH SCH (20:00)
[2018-10-14] MEDS: LEVALBUTEROL 1.25 MG/0.5 ML CONCENTRATE NEB INH SCH (20:00)
[2018-10-14] MEDS: CAPTOpril 3.125 MG PER 1/4 TABLET PO SCH (21:19)
[2018-10-14] MEDS: SENNA 8.6 MG TAB (SENOKOT) PO SCH (21:19)
[2018-10-14] MEDS: PANTOPRAZOLE 40MG TAB (PROTONIX) PO SCH (21:19)
[2018-10-14] MEDS: DOCUSATE SODIUM 100 MG CAP PO SCH (21:19)
[2018-10-14] MEDS: ATORVASTATIN 10 MG TAB PO SCH (21:19)
[2018-10-14] MEDS: ALPRAZolam 0.25 MG TAB PO SCH (21:19)
[2018-10-14] MEDS: ENOXAPARIN 60 MG/0.6 ML SYR (J1650) SC SCH (21:20)
[2018-10-14] MEDS: CARVedilol 12.5 MG TAB PO SCH (21:20)
[2018-10-15] MEDS: LEVALBUTEROL 1.25 MG/0.5 ML CONCENTRATE NEB INH SCH ×7 (00:20→23:39)
[2018-10-15 05:43] VITALS: BP 151/80
[2018-10-15 07:11] LABS: BASO # 0.1 10^3/uL (0.0-0.2); BASO % 0.5 % (0.0-1.0); EOS # 0.1 10^3/uL (0.0-0.50); EOS % 0.3 % (0.0-3.0); HEMATOCRIT 36.1 % (36.0-47.0); HEMOGLOBIN 11.3 g/dl (12.0-15.5); LYMPH # 1.4 10^3/uL (1.5-4.5); MEAN CORPUSCULAR HEMOGLOBIN 29.9 pg (27.0-33.0); MEAN CORPUSCULAR HGB CONC 31.3 g/dl (32.0-36.5); MEAN CORPUSCULAR VOLUME 95.5 fl (80.0-96.0); MONO # 1.3 10^3/uL (0.0-0.8); MONO % 8.4 % (0.0-5.0); NEUTROPHILS # 12.3 10^3/uL (1.8-7.7); NEUTROPHILS % 79.3 % (36.0-66.0); PLATELET COUNT, AUTOMATED 423 10^3/uL (150-450); RED BLOOD COUNT 3.78 10^6/uL (4.00-5.40); WHITE BLOOD COUNT 15.5 10^3/uL (4.0-10.0)
[2018-10-15 07:32] LABS: ALBUMIN 2.4 GM/DL (3.2-5.2); ALT/SGPT 54 U/L (12-78); BILIRUBIN,TOTAL 0.5 MG/DL (0.2-1.0); BLOOD UREA NITROGEN 25 MG/DL (7-18); CALCIUM LEVEL 8.4 MG/DL (8.8-10.2); CARBON DIOXIDE LEVEL 34 MEQ/L (21-32); CHLORIDE LEVEL 103 MEQ/L (98-107); CREATININE FOR GFR 0.49 MG/DL (0.55-1.30); GLOMERULAR FILTRATION RATE > 60.0 (>32); GLUCOSE, FASTING 79 MG/DL (70-100); POTASSIUM SERUM 4.5 MEQ/L (3.5-5.1); SODIUM LEVEL 141 MEQ/L (136-145)
[2018-10-15] MEDS: FORMOTEROL FUMARATE 20 MCG/2 ML INHALATION SOLUTION (PERFOROMIST) INH SCH ×2 (08:00→19:24)
[2018-10-15] MEDS: TIOTROPIUM INHALER/CAPSULE (SPIRIVA) INH SCH (08:09)
[2018-10-15] MEDS: FUROSEMIDE 20 MG TAB PO SCH (08:35)
[2018-10-15] MEDS: PANTOPRAZOLE 40MG TAB (PROTONIX) PO SCH ×2 (08:35→20:10)
[2018-10-15] MEDS: AZITHROMYCIN 250 MG TAB PO SCH (08:36)
[2018-10-15] MEDS: ASPIRIN 81 MG CHEW TABLET PO SCH (08:36)
[2018-10-15] MEDS: ALPRAZolam 0.25 MG TAB PO SCH ×3 (08:36→20:10)
[2018-10-15] MEDS: CARVedilol 12.5 MG TAB PO SCH ×2 (08:36→20:11)
[2018-10-15] MEDS: CAPTOpril 3.125 MG PER 1/4 TABLET PO SCH ×2 (08:36→20:10)
[2018-10-15] MEDS: CLOPIDOGREL 75 MG TAB PO SCH (08:36)
[2018-10-15] MEDS: ENOXAPARIN 60 MG/0.6 ML SYR (J1650) SC SCH ×2 (08:37→20:09)
[2018-10-15] MEDS: predniSONE 10 MG TAB PO SCH (08:37)
[2018-10-15] MEDS: DOCUSATE SODIUM 100 MG CAP PO SCH ×2 (08:37→20:10)
--- NOTE | 2018-10-15 12:06 | IPNPDOC ---
PM&R Progress Note DATE OF SERVICE: Oct 15, 2018 Vice President Regulatory Progress Note Subjective: Patient reports she feels tired after therapy and had stomach cramping followed by 3 self-reported bowel movements. REVIEW OF SYSTEMS: The following is a completed review of systems and has been reviewed. Review of systems otherwise unremarkable. PAIN: Patient self reports no pain EYES: Negative for recent vision loss EARS, NOSE, & THROAT: denies throat pain, rhinorrhea, or dysphagia CARDIOVASCULAR: denies chest pain or palpitations PULMONARY: +dyspnea at rest and cough GASTROINTESTINAL: negative for diarrhea or constipation, + abdominal cramping GENITOURINARY: Negative for dysuria MUSCULOSKELETAL: general deconditioning NEUROLOGICAL:no tremor or seizure activity HEMATOLOGICAL: +anemia SKIN: +ecchymosis and thin skin PSYCHIATRIC: Unremarkable PHYSICAL EXAMINATION: VITAL SIGNS: Please see below. GENERAL: Pleasant and cooperative. No acute distress, but dyspneic, thin HEENT: PERRL. Extraocular movements intact. Clear conjunctiva CARDIOVASCULAR: Regular rate and rhythm. No murmurs, rubs, or gallops LUNGS: Scattered Rhonchi throughout with porr inspiratory effort, No wheezes ABDOMEN: Soft, nontender, nondistended. Positive bowel sounds. Normal active bowel sounds. NEUROLOGICAL: Alert and oriented times three. Cranial nerves II through XII grossly intact. Sensation grossly intact in all 4 extremities EXTREMITIES: 5-\5 strength bilateral upper extremities. 5-\5 strength right lower extremity. 5-/5 strength in left lower extremity. SKIN: atrophied skin, scattered ecchymosis, left breast incision healed ASSESSMENT:83-year-old F with past medical history of COPD on home 02 who presents status post hospital acquired PNA with new diagnosis of Afib and recent NSTEMI. PLAN: 1. Rehab: PT, OT, assess for DMEs 2. Neuro: stable. monitor for delirium 3. cArdiac: NSTEMI due to cardiac demand in setting of COPD exacerbation and pneumonia- c/u ASA, Plavix, and Lovenox -ECHO showed Afib as well- will clarify with medicine anticoagulation for Afib specifically, however is currently therapeutic Lovenox -HTN c/u beta-olesya, and ADEN-I, Lasix added back from home medication on discharge -HLD on Lipitor 4. resp: pmh COPD s/p recent hypercapneic, hypoxic respiratory failure, DNI, titrate 02 to 88-92%, c/u breathing treatments, +parainfluenza with PNA, c/u Azythromycin and steroid taper 5. GI ppx: c/u protonix BID given patient on steroid taper, Lovenox, ASA and Plavix- FOBT ordered as well - patient complaining of abdominal cramping, will optimize bowel meds- Simethicone prn for cramping -leukocytosis likely from steroid use 6. DVT ppx: on full dose Lovenox- teds 7. : monitor PVRs, monitor for signs of UTI 8. Disp: TBD 9. DNR/DNI Allergies Coded Allergies: alendronate sodium (Unverified Allergy, Unknown, 10/08/18) amoxicillin (Unverified Allergy, Unknown, 10/08/18) atorvastatin (Unverified Allergy, Unknown, 10/08/18) ibandronate sodium (Unverified Allergy, Unknown, 10/08/18) levofloxacin (Unverified Allergy, Unknown, 10/08/18) quinine (Unverified Allergy, Unknown, 10/08/18) risedronate sodium (Unverified Allergy, Unknown, 10/08/18) Vital Signs Vital Signs Date Time Temp Pulse Resp B/P (MAP) Pulse Ox O2 Delivery O2 Flow Rate FiO2 10/15/18 08:36 80 151/80 10/15/18 08:00 2.0 10/15/18 05:43 97.7 18 98 Laboratory Data CBC/BMP Laboratory Tests 10/15/18 06:40 Red Blood Count 3.78 L, Mean Corpuscular Volume 95.5, Mean Corpuscular Hemoglobin 29.9, Mean Corpuscular Hemoglobin Concent 31.3 L, Red Cell Distribution Width 12.5, Neutrophils (%) (Auto) 79.3 H, Lymphocytes (%) (Auto) 9.0 L, Monocytes (%) (Auto) 8.4 H, Eosinophils (%) (Auto) 0.3, Basophils (%) (Auto) 0.5, Neutrophils # (Auto) 12.3 H, Lymphocytes # (Auto) 1.4 L, Monocytes # (Auto) 1.3 H, Eosinophils # (Auto) 0.1, Basophils # (Auto) 0.1, Calcium Level 8.4 L, Aspartate Amino Transf (AST/SGOT) 26, Alanine Aminotransferase (ALT/SGPT) 54, Alkaline Phosphatase 45, Total Bilirubin 0.5, Total Protein 5.0 L, Albumin 2.4 L Labs 24H Laboratory Tests 2 10/15/18 06:40: Immature Granulocyte % (Auto) 2.5, White Blood Count 15.5H, Red Blood Count 3.78L, Hemoglobin 11.3L, Hematocrit 36.1, Mean Corpuscular Volume 95.5, Mean Corpuscular Hemoglobin 29.9, Mean Corpuscular Hemoglobin Concent 31.3L, Red Cell Distribution Width 12.5, Platelet Count 423, Neutrophils (%) (Auto) 79.3H, Lymphocytes (%) (Auto) 9.0L, Monocytes (%) (Auto) 8.4H, Eosinophils (%) (Auto) 0.3, Basophils (%) (Auto) 0.5, Neutrophils # (Auto) 12.3H, Lymphocytes # (Auto) 1.4L, Monocytes # (Auto) 1.3H, Eosinophils # (Auto) 0.1, Basophils # (Auto) 0.1, Nucleated Red Blood Cells % (auto) 0.0, Anion Gap 4L, Glomerular Filtration Rate > 60.0, Blood Urea Nitrogen 25H, Creatinine 0.49L, Sodium Level 141, Potassium Level 4.5, Chloride Level 103, Carbon Dioxide Level 34H, Calcium Level 8.4L, Aspartate Amino Transf (AST/SGOT) 26, Alanine Aminotransferase (ALT/SGPT) 54, Alkaline Phosphatase 45, Total Bilirubin 0.5, Total Protein 5.0L, Albumin 2.4L, Albumin/Globulin Ratio 0.92L 10/15/18 11:29: Bedside Glucose (Misc Panel) 119H Current Medications Current Medications Current Medications Acetaminophen (Tylenol Tab) 650 mg Q4HP PRN PO fever/MILD PAIN (PS 1-4); Start 10/14/18 at 16:30 Alprazolam (Xanax) 0.125 mg TID PO Last administered on 10/15/18at 08:36; Start 10/14/18 at 21:00 Aspirin (Aspirin Chewable) 81 mg DAILY PO Last administered on 10/15/18at 08:36; Start 10/15/18 at 09:00 Atorvastatin Calcium (Lipitor) 10 mg QHS PO Last administered on 10/14/18at 21:19; Start 10/14/18 at 21:00 Azithromycin (Zithromax Tab) 250 mg DAILY PO Last administered on 10/15/18 08:36; Start 10/15/18 at 09:00; Stop 10/21/18 at 23:00 Bisacodyl (Dulcolax Suppository) 10 mg DAILYPRN PRN LA CONSTIPATION; Start 10/14/18 at 16:30 Captopril (CAPOten) 3.125 mg BID PO Last administered on 10/15/18 08:36; Start 10/14/18 at 21:00 Carvedilol (COReg) 25 mg BID PO Last administered on 10/15/18 08:36; Start 10/14/18 at 21:00 Clopidogrel Bisulfate (PLAVix) 75 mg DAILY PO Last administered on 10/15/18 08:36; Start 10/15/18 at 09:00 Docusate Sodium (Colace) 100 mg BID PO Last administered on 10/15/18 08:37; S tart 10/14/18 at 21:00 Enoxaparin Sodium (Lovenox) 50 mg BID SC Last administered on 10/15/18 08:37; Start 10/14/18 at 21:00 Formoterol Fumarate (Perforomist) 20 mcg RBID INH ; Start 10/14/18 at 20:00 Furosemide (Lasix) 20 mg DAILY PO Last administered on 10/15/18 08:35; Start 10/15/18 at 09:00 Home Med (Med Rec Complete!) ASDIRECTED XX ; Start 10/14/18 at 17:45; Stop 10/14/18 at 17:45; Status DC Levalbuterol HCl (Xopenex Neb) 1.25 mg RQ4H INH Last administered on 10/15/18at 05:00; Start 10/14/18 at 20:00 Magnesium Hydroxide (Milk Of Magnesia) 30 ml DAILYPRN PRN PO CONSTIPATION; Start 10/14/18 at 16:30 Nitroglycerin (Nitrostat (1/ 150)) 0.4 mg Q5MP PRN SL CHEST PAIN; Start 10/14/18 at 16:30 Pantoprazole Sodium (Protonix) 40 mg BID PO Last administered on 10/15/18 08:35; Start 10/14/18 at 21:00 Prednisone (Deltasone) 5 mg DAILY PO ; Start 10/24/18 at 09:00 Prednisone (Deltasone) 10 mg DAILY PO ; Start 10/21/18 at 09:00; Stop 10/23/18 at 09:01 Prednisone (Deltasone) 20 mg DAILY PO ; Start 10/18/18 at 09:00; Stop 10/20/18 at 09:01 Prednisone (Deltasone) 30 mg DAILY PO Last administered on 10/15/18at 08:37; Start 10/15/18 at 09:00; Stop 10/17/18 at 09:01 Senna (Senokot) 1 tab QHS PO Last administered on 10/14/18at 21:19; Start 10/14/18 at 21:00 Tiotropium [place] (Spiriva Handihaler) 1 inhalation DAILY@08 INH Last administered on 10/15/18at 08:09; Start 10/15/18 at 08:00 A-FIB/CHADSVASC A-FIB History Current/History of A-Fib/PAF?: Yes Current Oral Anticoagulant The: No MELISA OCHOA MD Oct 15, 2018 12:06
[2018-10-15 14:00] VITALS: BP 111/54
[2018-10-15] MEDS: ACETAMINOPHEN TAB 650MG DOSE (2X325MG) PO PRN (14:06)
[2018-10-15] MEDS: SIMETHICONE 80 MG CHEW TAB PO PRN (14:38)
--- NOTE | 2018-10-15 16:50 | CR ---
DATE OF CONSULTATION: 10/15/2018 REFERRING PHYSICIAN: Acute rehabilitation unit (ARU). REASON FOR CONSULTATION: Medical management. HISTORY OF PRESENT ILLNESS: The patient is an 83-year-old female who presented to [facility] on 10/08/2018 with a complaint of shortness of breath. Patient has been hospitalized for hospital-acquired pneumonia, parainfluenza infection, and [id number]-UC-[id number] myocardial infarction (non-STEMI). Patient's medical treatment was optimized, and on 10/14/2018 patient was transferred to the ARU to continue acute rehabilitation. During encounter, patient still requires oxygen support. Patient denied any wheezes, shortness of breath, increased sputum production. Denied any chest pain or palpitations. Denied any acute complaints. PAST MEDICAL HISTORY: 1. Chronic obstructive pulmonary disease (COPD). 2. Hypertension. 3. Non-STEMI. 4. History of parainfluenza infection. 5. Sinus tachycardia. 6. Hypertension. 7. History of breast cancer status post lumpectomy. 8. Pulmonary hypertension. PAST SURGICAL HISTORY: 1. Breast lumpectomy. 2. Appendectomy. 3. Bladder suspension. 4. Tubal ligation. 5. Fibroid removal with hysterectomy. ALLERGIES: OLANZAPINE, AMOXICILLIN, ATORVASTATIN, LEVAQUIN. SOCIAL HISTORY: Patient used to smoke one-half to one pack per day for 60 years, quitting 1997. Patient is DO NOT RESUSCITATE, DO NOT INTUBATE. REVIEW OF SYSTEMS: GENERAL: Denied any fevers or chills. HEENT: No vision changes, no auditory changes. CARDIOVASCULAR: No chest pain. No palpitations. RESPIRATORY: Denies any worsening of shortness of breath. Denies any wheezes. Denies any productive cough. GASTROINTESTINAL: No nausea, no vomiting, no diarrhea. GENITOURINARY: Denied any dysuria, frequency, urgency. MUSCULOSKELETAL: Denied muscle pain or joint pain. NEUROLOGIC: Denied any numbness or tingling. VITAL SIGNS: Temperature 97.3, pulse 77, respirations 20, blood pressure 122/59, pulse oximetry 98% with 2 liters nasal cannula. GENERAL: Patient is alert, awake, comfortable. HEENT: Normocephalic, atraumatic. Extraocular motor grossly intact. CARDIOVASCULAR: Positive S1, S2, regular rate. LUNGS: Very diminished breath sounds. Positive wheezes bilaterally. No significant crackle appreciated. ABDOMEN: Soft, nontender, nondistended. Bowel sounds present. EXTREMITIES: No significant edema appreciated. LABORATORY DATA: WBC is 15.5, hemoglobin 11.3, hematocrit is 36.1, platelet count is 425. Sodium is 141, potassium 4.5, chloride 103, carbon dioxide 34, BUN 25, creatinine 0.49, GFR greater than 60, fasting glucose 79, calcium 8.4. Total bilirubin 0.5, AST 36, ALT 54, alkaline phosphatase 45, total protein 5, albumin 2.4. ASSESSMENT AND PLAN: 1. Physical deconditioning. Patient's is admitted to ARU to continue rehabilitation. Refer diet, activity level, anticoagulation, and pain control per ARU recommendations. 2. Chronic obstructive pulmonary disease (COPD) exacerbation. Patient was treated with tapering steroid breathing treatments. Patient will be continued on tapering steroid. Patient will continue on 70 mg by mouth daily for 7 days, then 20 mg by mouth daily for 7 days, then 10 mg by mouth daily for 7 days, then patient can resume her home steroid dosage, which was 5 mg by mouth daily. Patient will have nebulizer treatment as needed. 3. Non-STEMI. Patient should continue aspirin, Plavix, Lipitor, carvedilol. 4. History of bilateral hospital-acquired pneumonia. Patient had a course of intravenous (IV) antibiotics. Patient will continue the azithromycin for a few more days. During the last hospitalization, patient tested positive for Streptococcus pneumoniae in the urine study. 5. History of parainfluenza infection. Continue to monitor. 6. Sinus tachycardia. Continue to monitor. 7. History of left breast cancer, status post lumpectomy. 8. Pulmonary hypertension. Patient is on Lasix. Will continue to assess patient's fluid status and adjust as needed. 9. Deep vein thrombosis (DVT) prophylaxis, per ARU recommendations.
[2018-10-15 20:00] VITALS: BP 109/55
[2018-10-15] MEDS: ATORVASTATIN 10 MG TAB PO SCH (20:10)
[2018-10-15] MEDS: SENNA 8.6 MG TAB (SENOKOT) PO SCH (20:10)
[2018-10-16 06:00] VITALS: BP 142/63
[2018-10-16] MEDS: LEVALBUTEROL 1.25 MG/0.5 ML CONCENTRATE NEB INH SCH ×5 (08:00→23:26)
[2018-10-16 08:18] LABS: HEMATOCRIT 34.8 % (36.0-47.0); HEMOGLOBIN 10.9 g/dl (12.0-15.5); MEAN CORPUSCULAR HEMOGLOBIN 29.5 pg (27.0-33.0); MEAN CORPUSCULAR HGB CONC 31.3 g/dl (32.0-36.5); MEAN CORPUSCULAR VOLUME 94.1 fl (80.0-96.0); PLATELET COUNT, AUTOMATED 408 10^3/uL (150-450); WHITE BLOOD COUNT 15.5 10^3/uL (4.0-10.0)
[2018-10-16] MEDS: predniSONE 10 MG TAB PO SCH (08:18)
[2018-10-16] MEDS: AZITHROMYCIN 250 MG TAB PO SCH (08:19)
[2018-10-16] MEDS: DOCUSATE SODIUM 100 MG CAP PO SCH ×2 (08:19→21:44)
[2018-10-16] MEDS: ALPRAZolam 0.25 MG TAB PO SCH ×3 (08:19→21:44)
[2018-10-16] MEDS: PANTOPRAZOLE 40MG TAB (PROTONIX) PO SCH ×2 (08:19→21:45)
[2018-10-16] MEDS: CAPTOpril 3.125 MG PER 1/4 TABLET PO SCH ×2 (08:22→21:45)
[2018-10-16] MEDS: FUROSEMIDE 20 MG TAB PO SCH (08:22)
[2018-10-16] MEDS: ENOXAPARIN 60 MG/0.6 ML SYR (J1650) SC SCH ×2 (08:23→21:45)
[2018-10-16] MEDS: CARVedilol 12.5 MG TAB PO SCH ×2 (08:23→21:44)
[2018-10-16] MEDS: ASPIRIN 81 MG CHEW TABLET PO SCH (08:23)
[2018-10-16] MEDS: CLOPIDOGREL 75 MG TAB PO SCH (08:23)
[2018-10-16] MEDS: FORMOTEROL FUMARATE 20 MCG/2 ML INHALATION SOLUTION (PERFOROMIST) INH SCH ×2 (08:28→20:06)
[2018-10-16] MEDS: TIOTROPIUM INHALER/CAPSULE (SPIRIVA) INH SCH (08:28)
[2018-10-16 08:35] LABS: BLOOD UREA NITROGEN 23 MG/DL (7-18); C REACTIVE PROTEIN QUANTITATIV < 0.30 MG/DL (0.00-0.30); CARBON DIOXIDE LEVEL 28 MEQ/L (21-32); CHLORIDE LEVEL 103 MEQ/L (98-107); CREATININE FOR GFR 0.51 MG/DL (0.55-1.30); GLOMERULAR FILTRATION RATE > 60.0 (>32); GLUCOSE, FASTING 80 MG/DL (70-100); MAGNESIUM LEVEL 2.1 MG/DL (1.8-2.4); SODIUM LEVEL 137 MEQ/L (136-145)
[2018-10-16 10:01] LABS: ERYTHROCYTE SEDIMENTATION RATE 31 mm/hr (0-30)
[2018-10-16 13:17] LABS: HEMATOCRIT 33.9 % (36.0-47.0); HEMOGLOBIN 10.7 g/dl (12.0-15.5)
[2018-10-16 14:00] VITALS: BP 125/61
--- NOTE | 2018-10-16 16:15 | IPN ---
DATE: 10/16/2018 SUBJECTIVE: Patient is seen and examined in the room today. Patient complains about significant fatigue. Patient was not performing well during physical therapy. Patient was found to have bright red blood in the toilet mixed with stool during a bowel movement. Denied any stomach pain. Patient stated this is the first episode that she had a gastrointestinal (GI) bleed. OBJECTIVE: VITAL SIGNS: Temperature is 97.2, pulse 75, respirations 18, blood pressure 142/63, pulse oximetry is 98% with 2 liters oxygen. GENERAL: Fatigued, pale. No sign of severe distress. HEENT: Normocephalic, atraumatic. Extraocular motor grossly intact. CARDIOVASCULAR: Positive S1, S2, regular rate. LUNGS: Diminished breath sounds bilaterally. Mild wheezes appreciated. No significant crackles. ABDOMEN: Soft, nontender, nondistended. Bowel sounds present. EXTREMITIES: No edema appreciated. LABORATORY DATA: WBC is 15.5, hemoglobin 10.9, hematocrit 34.8, platelet count 408. Sodium is 137, potassium 4, chloride 103, carbon dioxide 28, BUN 23, creatinine 0.5, GFR greater than 60, fasting glucose 80, calcium 8, magnesium 2.1. C-reactive protein is less than 0.3. ASSESSMENT AND PLAN: 1. Acute gastrointestinal (GI) bleed. Due to history of [id number] myocardial infarction (non-STEMI) patient was on aspirin and Plavix before. Will hold antiplatelet therapy. Will continue to trend the hemoglobin and hematocrit. Will check orthostatic blood pressures. GI/Dr. Simth consulted. Plan for colonoscopy in a few days. Due to history of non-STEMI, leather tacker consulted for preoperative optimization. 2. Chronic obstructive pulmonary disease (COPD), on chronic oxygen supplement. No sign of exacerbation at this moment. Continue to monitor. 3. Non-STEMI. Plavix on hold due to GI bleed. Continue on statin, on carvedilol. 4. History of parainfluenza infection, improved. 5. Hospital-acquired pneumonia, status post a course of antibiotic treatment. C-reactive protein within normal range. Patient did have elevated white count. Continue to monitor. 6. Pulmonary hypertension, on diuretic. 7. Sinus tachycardia, on beta olesya. Heart rate in the satisfactory range at this moment. 8. Hypertension, on diuretic, on captopril and carvedilol. 9. History of breast cancer, status post lumpectomy. 10. Deep vein thrombosis (DVT) prophylaxis, on thromboembolic deterrents (TEDs) and compression.
[2018-10-16] MEDS: ACETAMINOPHEN TAB 650MG DOSE (2X325MG) PO PRN ×2 (16:27→23:59)
[2018-10-16 19:27] LABS: HEMATOCRIT 33.6 % (36.0-47.0); HEMOGLOBIN 10.7 g/dl (12.0-15.5)
[2018-10-16 20:00] VITALS: BP 138/71
[2018-10-16] MEDS: ATORVASTATIN 10 MG TAB PO SCH (21:45)
[2018-10-16] MEDS: SENNA 8.6 MG TAB (SENOKOT) PO SCH (21:45)
[2018-10-16] MEDS: SIMETHICONE 80 MG CHEW TAB PO PRN (23:58)
[2018-10-17 00:58] LABS: HEMATOCRIT 30.5 % (36.0-47.0); HEMOGLOBIN 9.6 g/dl (12.0-15.5)
[2018-10-17] MEDS: LEVALBUTEROL 1.25 MG/0.5 ML CONCENTRATE NEB INH SCH ×7 (04:05→20:00)
[2018-10-17 06:00] VITALS: BP_SYST 124; BP_SYST 160; BP_SYST 163; BP_DIAS 61; BP_DIAS 72; BP_DIAS 74
[2018-10-17 07:18] LABS: HEMATOCRIT 31.5 % (36.0-47.0); HEMOGLOBIN 10.1 g/dl (12.0-15.5); MEAN CORPUSCULAR HEMOGLOBIN 30.1 pg (27.0-33.0); MEAN CORPUSCULAR HGB CONC 32.1 g/dl (32.0-36.5); MEAN CORPUSCULAR VOLUME 93.8 fl (80.0-96.0); PLATELET COUNT, AUTOMATED 382 10^3/uL (150-450); RED BLOOD COUNT 3.36 10^6/uL (4.00-5.40); WHITE BLOOD COUNT 16.2 10^3/uL (4.0-10.0)
[2018-10-17] MEDS: ACETAMINOPHEN TAB 650MG DOSE (2X325MG) PO PRN (07:21)
[2018-10-17] MEDS: SIMETHICONE 80 MG CHEW TAB PO PRN (07:21)
[2018-10-17] MEDS: FORMOTEROL FUMARATE 20 MCG/2 ML INHALATION SOLUTION (PERFOROMIST) INH SCH ×2 (07:38→20:30)
[2018-10-17] MEDS: TIOTROPIUM INHALER/CAPSULE (SPIRIVA) INH SCH (07:38)
[2018-10-17] MEDS: AZITHROMYCIN 250 MG TAB PO SCH (09:27)
[2018-10-17] MEDS: predniSONE 10 MG TAB PO SCH (09:27)
[2018-10-17] MEDS: DOCUSATE SODIUM 100 MG CAP PO SCH ×2 (09:27→21:53)
[2018-10-17] MEDS: ASPIRIN 81 MG CHEW TABLET PO SCH (09:27)
[2018-10-17] MEDS: FUROSEMIDE 20 MG TAB PO SCH (09:27)
[2018-10-17] MEDS: PANTOPRAZOLE 40MG TAB (PROTONIX) PO SCH ×2 (09:27→21:54)
[2018-10-17] MEDS: ENOXAPARIN 60 MG/0.6 ML SYR (J1650) SC SCH (09:28)
[2018-10-17] MEDS: CAPTOpril 3.125 MG PER 1/4 TABLET PO SCH ×2 (09:36→21:53)
[2018-10-17] MEDS: CARVedilol 12.5 MG TAB PO SCH ×2 (09:37→21:54)
[2018-10-17] MEDS: ALPRAZolam 0.25 MG TAB PO SCH ×3 (09:37→21:54)
[2018-10-17] MEDS ORDERED: ISOVUE-370 76% 100ML VIAL (Q9967) As Ordered ONE (10:38)
--- NOTE | 2018-10-17 11:38 | REP ---
CT ABDOMEN AND PELVIS WITH CONTRAST: HISTORY: Abdominal pain. CONTRAST: Isovue 370, 100 mL. The liver, pancreas, spleen, adrenal glands and kidneys are normal in appearance. The gallbladder is contracted. There is no abdominal mass, adenopathy or free fluid. Areas of atelectasis or scar are present in the lower lobes. A 1.1 cm nodule is present in the right lower lobe. An irregular heterogenous mass is present in the left posterior pelvis. This is appears to be arising from the sigmoid colon. The mass measures approximately 7 cm in transverse by 6.7 cm in AP dimensions. A 3.5 cm septated cystic structure is present in the left posterior pelvis. This may represent an ovarian cyst. The urinary bladder is normal in appearance. There is no free fluid. Degenerative change is present in the spine. There is grade I spondylolisthesis of L5 on S1. A small collection of subcutaneous air is present in the mid left anterior abdomen. IMPRESSION: 1. Bibasilar atelectasis or scar. 2. 1.1 cm right lower lobe parenchymal nodule. CT of the chest may be helpful for further evaluation. 3. There is irregular heterogeneous mass in the pelvis contiguous with the uterus and sigmoid colon. This appears to be a mass arising from the sigmoid colon. 4. There is a 3.5 cm septated cystic structure in the left pelvis that may represent an ovarian cyst. Ultrasound may be helpful for further evaluation Electronically Signed by Ari Saleh MD 10/18/2018 08:52 A
--- NOTE | 2018-10-17 13:15 | IPNPDOC ---
Text Note Date of Service The patient was seen on 10/17/18. NOTE SUBJECTIVE: Patient is seen and examined in the room today. Patient still has blood in stool. Patient still has fatigue. Patient complains about lower abdominal pain bilaterally during the encounter. OBJECTIVE: VITAL SIGNS: Listed below. GENERAL: Fatigued. No sign of severe distress. HEENT: Normocephalic, atraumatic. Extraocular motor grossly intact. CARDIOVASCULAR: Positive S1, S2, regular rate. LUNGS: Diminished breath sounds bilaterally. Mild wheezes appreciated. No significant crackles. ABDOMEN: Soft, nontender, nondistended. Bowel sounds present. EXTREMITIES: No edema appreciated. LABORATORY DATA: Listed below ASSESSMENT AND PLAN: #. Acute gastrointestinal (GI) bleed. - Due to [id number] myocardial infarction (non-STEMI) patient was on aspirin and Plavix. Will hold plavix therapy. Will continue to trend the hemoglobin and hematocrit. Continue checking orthostatic blood pressures. GI, Dr. Smith, consulted. Plan for colonoscopy in a few days. Due to history of non-STEMI, auricular acupuncturist consulted for preoperative optimization. # Abdominal pain - Etiology is unknown at this moment. Patient currently has GI bleed. CT abdomen ordered. #. Chronic obstructive pulmonary disease (COPD), on chronic oxygen supplement. No sign of exacerbation at this moment. Continue to monitor. #. Non-STEMI. - Plavix on hold due to GI bleed. Continue on statin, on carvedilol. #. History of parainfluenza infection, improved. #. Hospital-acquired pneumonia - status post a course of antibiotic treatment. C-reactive protein within normal range. Patient did have elevated white count. Continue to monitor. #. Pulmonary hypertension, on diuretic. #. Sinus tachycardia, on beta olesya. Heart rate in the satisfactory range at this moment. #. Hypertension, on diuretic, on captopril and carvedilol. #. History of breast cancer, status post lumpectomy. #. Deep vein thrombosis (DVT) prophylaxis, on thromboembolic deterrents (TEDs) and compression. VS,Fishbone, I+O VS, Fishbone, I+O Laboratory Tests 10/16/18 12:55 10/16/18 19:10 10/17/18 00:46 10/17/18 06:53 Red Blood Count 3.36 L, Mean Corpuscular Volume 93.8, Mean Corpuscular Hemoglobin 30.1, Mean Corpuscular Hemoglobin Concent 32.1, Red Cell Distribution Width 12.5 Vital Signs Date Time Temp Pulse Resp B/P (MAP) Pulse Ox O2 Delivery O2 Flow Rate FiO2 10/17/18 09:37 142/62 10/17/18 09:00 2.0 10/17/18 06:00 98.6 81 18 97 10/15/18 23:39 Nasal Cannula I&O- Last 24 Hours up to 6 AM 10/17/18 06:00 Intake Total 600 ml Balance 600 ml SETH UMAÑA DO Oct 17, 2018 13:15
[2018-10-17 14:00] VITALS: BP_SYST 104; BP_SYST 105; BP_SYST 106; BP_DIAS 52; BP_DIAS 54; BP_DIAS 58
--- NOTE | 2018-10-17 14:33 | REP ---
CT CHEST WITHOUT CONTRAST: HISTORY: Lung nodule. An 11 mm parenchymal nodule is present in the right lower lobe seen in image #74. A 14 mm parenchymal nodule is present in the right lower lobe seen in image #80. Areas of atelectasis or scarring are present in the right lower lobe. A bulla is present in the medial right lower lobe. A 7 mm parenchymal nodule is present in the left upper lobe seen in image #30. Areas of atelectasis or scarring are present in the left lower lobe. There is thickening of the major fissures bilaterally. There is no pleural effusion. The heart is normal in size. 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 Atherosclerotic calcification is present in the thoracic aorta. Degenerative change is present in the thoracic spine. There is enlargement of the left thyroid lobe. Calcifications are present. IMPRESSION: 1. There are parenchymal nodules in the lungs as described above. Neoplasm cannot be excluded. Followup examination is recommended for further evaluation. 2. Bibasilar atelectasis or scarring. 3. There is enlargement of the left thyroid lobe. Ultrasound may be helpful for further evaluation. Electronically Signed by Ari Saleh MD 10/17/2018 02:42 P
[2018-10-17 20:00] VITALS: BP_SYST 127; BP_SYST 136; BP_SYST 139; BP_DIAS 61; BP_DIAS 70; BP_DIAS 90
[2018-10-17] MEDS: SENNA 8.6 MG TAB (SENOKOT) PO SCH (21:54)
[2018-10-17] MEDS: ATORVASTATIN 10 MG TAB PO SCH (21:54)
[2018-10-18] MEDS: LEVALBUTEROL 1.25 MG/0.5 ML CONCENTRATE NEB INH SCH ×8 (03:18→23:29)
[2018-10-18 05:30] VITALS: BP_SYST 121; BP_SYST 127; BP_SYST 146; BP_DIAS 60; BP_DIAS 61; BP_DIAS 68
[2018-10-18] MEDS: FORMOTEROL FUMARATE 20 MCG/2 ML INHALATION SOLUTION (PERFOROMIST) INH SCH ×2 (07:29→21:34)
[2018-10-18] MEDS: TIOTROPIUM INHALER/CAPSULE (SPIRIVA) INH SCH (07:29)
--- NOTE | 2018-10-18 08:42 | CR ---
DATE OF CONSULTATION: 10/17/2018 REFERRING PROVIDER: Dr. Hernandez REASON FOR CONSULTATION: Preoperative evaluation. Recent non-ST elevation myocardial infarction. PRIMARY CARE PHYSICIAN: Dr. Dashawn Baker in [place]. History of present illness 83-year-old woman was transferred from the [facility] on 10/08/2018 with shortness of breath and was admitted with hypercapnic respiratory failure and exacerbation of chronic obstructive pulmonary disease (COPD). While in the hospital, she was found to have abnormal serum troponin consistent with a non-ST elevation myocardial infarction. She was stabilized then transferred upstairs for physical rehabilitation. She has been doing well and she was found to have blood in her stool. The immediate plan is to proceed with a gastrointestinal (GI) workup with gastroscopy and colonoscopy, and a cardiology consult was called. When I saw Mrs. Madeline Parsons on the floor, she was sitting in a chair in no acute distress at rest. She denies any chest pain. Her shortness of breath has improved and remains stable. She remains on oxygen supplement continuously and has been on oxygen even prior to this hospitalization for her history of COPD/emphysema. She denies any palpitations. She has been having abdominal discomfort. She denies any nausea or vomiting. She has a cough, but she denies any hemoptysis or fever. There is no focal manifestation. There is no headache or dizziness. She has a past medical history positive for recent non-ST elevation myocardial infarction and presumed coronary artery disease (CAD), hypertension, hyperlipidemia, COPD, and recent pneumonia/parainfluenza infection. She has been on continuous home oxygen therapy via nasal cannula for her COPD and she also has a history of pulmonary hypertension. Past surgical history is positive for appendectomy, bladder suspension surgery, breast lumpectomy, fibroid tumor removal with hysterectomy, and tubal ligation. Family history noncontributory. MEDICATIONS: - prednisone as directed - aspirin 81 mg by mouth daily - azithromycin 250 mg by mouth daily - simethicone 80 mg by mouth every 6 hours as needed for gas pain - Lasix 20 mg by mouth daily - Spiriva one daily via inhalation - pantoprazole 40 mg by mouth twice a day - docusate sodium 100 mg by mouth twice a day - senna one tablet by mouth at bedtime - alprazolam 0.125 mg by mouth three times a day - atorvastatin 10 mg by mouth at bedtime - captopril 3.25 mg by mouth twice a day - carvedilol 25 mg by mouth twice a day - Perforomist 20 mcg via inhalation twice a day - Xopenex 1.25 mg every 4 hours via inhalation - Dulcolax 10 mg suppository daily as needed for constipation - magnesium hydroxide 30 mL daily as needed for constipation - Tylenol 650 mg every 4 hours as needed for pain or fever - nitroglycerin 0.4 mg as needed SOCIAL HISTORY: Patient lives in the [facility]. She is a former smoker and quit in 1997. She denies any EtOH abuse. She has a DO NOT RESUSCITATE and DO NOT INTUBATE order. ALLERGIES: Reported to: 1. ATORVASTATIN, but the patient is currently on atorvastatin. 2. AMOXICILLIN. 3. ALENDRONATE SODIUM. 4. LEVOFLOXACIN. 5. QUININE. PHYSICAL EXAMINATION: On physical examination, patient is alert and awake, in no acute distress at rest, very pleasant. Her blood pressure when I saw her this morning was 124/61 supine, 163/72 sitting up and 160/74 standing up. Her pulse was reported to be between 81 and 83, with a respiration of 18, and a temperature of 98.6 degrees Fahrenheit with an oxygen saturation of 97% on 2 liters nasal cannula. Examination of the head: Atraumatic. Neck is supple and with extended external jugular. The lungs did not reveal any wheezing or crackles. The heart examination revealed a regular heart sounds without gallops. The PMI is not displaced. There is no rub. I could not appreciate any murmurs. Abdomen is soft and nontender. Extremities reveal no pedal. Skin examination revealed multiple bruises in the upper extremities. Neurological examination is negative for focal deficits. LABS: CBC done today revealed WBC of 16.2, hemoglobin 10.1, hematocrit 31.5, platelets 382,000. BMP revealed a sodium of 137, potassium 4.0, chloride 103, CO2 28, BUN 23, creatinine 0.5, GFR 160, fasting glucose 80, calcium 8.0. Serum magnesium is 2.1. C-reactive protein is less than 0.30. A chest CT done today revealed parenchymal nodules and neoplasm could not be excluded. There was bibasilar atelectasis and enlargement of the left thyroid lobe. CT of the abdomen and pelvis revealed bibasilar atelectasis or scar and there was a 1.1 cm right lower lobe parenchymal nodule, and an irregular heterogenous mass in the pelvis, contiguous with the uterus and sigmoid colon, and this was thought to be arising from the uterus and may represent uterine fibroids. Most recent electrocardiogram done on 10/09/2018 revealed normal sinus rhythm, mildly tachycardic at 106 beats per minute with nonspecific STT abnormalities noted in the lateral leads. It was reported to be without any changes from prior tracing. IMPRESSION: 83-year-old female with above medical problems recently admitted here with hypercapnic respiratory failure, similar to pneumonia and exacerbation of COPD. She was found to have abnormal serum troponin consistent with a non-ST elevation myocardial infarction. She has not been having any chest pain. This can be related also to demand ischemia, but she is at risk to have underlying CAD. Her echocardiogram revealed a normal global left ventricular systolic function. I have discussed with Dr. Hernandez, she probably does not need anymore of the Lovenox if still given for her non-ST elevation myocardial infarction. The Plavix was discontinued and she is currently on aspirin and I will continue the same. She is planning to have, as mentioned above, colonoscopy and gastroscopy, and she may proceed as scheduled. She will take her beta-olesya on that day but she may hold her ADEN inhibitor/captopril. Further recommendations will be given after the colonoscopy/gastroscopy. If needed, she can be given subcu heparin for deep vein thrombosis (DVT) prophylaxis. It was a pleasure to participate in the care of Mrs. Madeline Parsons for her underlying cardiac condition. I will continue to monitor along with you as needed. Please do not hesitate to call if you have any questions.
[2018-10-18] MEDS: CAPTOpril 3.125 MG PER 1/4 TABLET PO SCH ×2 (09:00→20:38)
[2018-10-18] MEDS: FUROSEMIDE 20 MG TAB PO SCH (09:00)
[2018-10-18] MEDS: AZITHROMYCIN 250 MG TAB PO SCH (09:00)
[2018-10-18] MEDS: PANTOPRAZOLE 40MG TAB (PROTONIX) PO SCH ×2 (09:00→20:39)
[2018-10-18] MEDS ORDERED: predniSONE 20 MG TAB PO SCH (09:00)
[2018-10-18] MEDS: ASPIRIN 81 MG CHEW TABLET PO SCH (09:00)
[2018-10-18] MEDS: DOCUSATE SODIUM 100 MG CAP PO SCH ×2 (09:00→20:38)
[2018-10-18] MEDS: CARVedilol 12.5 MG TAB PO SCH ×2 (09:01→20:39)
[2018-10-18] MEDS: ALPRAZolam 0.25 MG TAB PO SCH ×3 (09:01→20:38)
[2018-10-18 14:00] VITALS: BP_SYST 130; BP_SYST 133; BP_SYST 136; BP_DIAS 58; BP_DIAS 61; BP_DIAS 63
--- NOTE | 2018-10-18 14:09 | IPNPDOC ---
Text Note Date of Service The patient was seen on 10/18/18. NOTE SUBJECTIVE: Patient is seen and examined in the room today. Patient states her breathing may be improving. Stool color today is brown. Patient still has fatigue. Patient still complains about lower abdominal pain. OBJECTIVE: VITAL SIGNS: Listed below. GENERAL: Fatigued. No sign of severe distress. HEENT: Normocephalic, atraumatic. Extraocular motor grossly intact. CARDIOVASCULAR: Positive S1, S2, regular rate. LUNGS: Diminished breath sounds bilaterally. Mild wheezes appreciated. No significant crackles. ABDOMEN: Soft, nontender, nondistended. Bowel sounds present. EXTREMITIES: No edema appreciated. LABORATORY DATA: Listed below ASSESSMENT AND PLAN: #. Acute gastrointestinal (GI) bleed. - Due to [id number] myocardial infarction (non-STEMI) patient was on aspirin and Plavix and lovenox. Hold plavix therapy and lovenox. Will continue to trend the hemoglobin and hematocrit. Continue checking orthostatic blood pressures. - GI, Dr. Smith, consulted. Plavix is on hold since 10/16/18. Discussed with Dr. Smith, will hold plavix for 5 days before colonoscopy. - Due to history of non-STEMI, sweeper cleaner industrial, Dr. Norton, consulted for preoperative optimization. Will hold Lovenox and plavix. On the day of procedure, patient will continue her beta-olesya but ACEI will be on hold. # Abdominal pain - CT imaging performed. There is irregular heterogeneous mass in the pelvis contiguous with the uterus and sigmoid colon. There is suspicion for mass arising from the sigmoid colon. Patient will have colonoscopy. #. Chronic obstructive pulmonary disease (COPD), on chronic oxygen supplement. - Per pulmonology during last admission, patient will be need slow taper of steroid. Continue 20mg Daily for 7 days, then 10mg Daily for 7 days then resume 5mg Daily. # Parenchymal nodules. - Multiple parenchymal nodules noted on CT chest on 10/17/18. Neoplasm can not be excluded. Plavix is on hold #. Non-STEMI. - Plavix on hold due to GI bleed. Continue on statin, on carvedilol. #. History of parainfluenza infection, improved. #. Hospital-acquired pneumonia - status post a course of antibiotic treatment. C-reactive protein within normal range. Patient did have elevated white count. Continue to monitor. #. Pulmonary hypertension, on diuretic. #. Sinus tachycardia, - on beta olesya. Heart rate in the satisfactory range at this moment. #. Hypertension - on diuretic, on captopril and carvedilol. #. History of breast cancer, status post lumpectomy. #. Deep vein thrombosis (DVT) prophylaxis, - On thromboembolic deterrents (TEDs) and compression. VS,Fishbone, I+O VS, Fishbone, I+O Vital Signs Date Time Temp Pulse Resp B/P (MAP) Pulse Ox O2 Delivery O2 Flow Rate FiO2 10/18/18 09:01 87 146/68 10/18/18 05:32 97.5 18 94 2.0 10/15/18 23:39 Nasal Cannula I&O- Last 24 Hours up to 6 AM 10/18/18 06:00 Intake Total 2370 ml Output Total 250 ml Balance 2120 ml SETH UMAÑA DO Oct 18, 2018 14:09
[2018-10-18 14:20] LABS: HEMOGLOBIN 10.4 g/dl (12.0-15.5)
[2018-10-18 20:04] LABS: HEMATOCRIT 30.8 % (36.0-47.0); HEMOGLOBIN 9.9 g/dl (12.0-15.5)
[2018-10-18 20:27] VITALS: BP 140/72
[2018-10-18] MEDS: SENNA 8.6 MG TAB (SENOKOT) PO SCH (20:38)
[2018-10-18] MEDS: ATORVASTATIN 10 MG TAB PO SCH (20:39)
[2018-10-18] MEDS: ACETAMINOPHEN TAB 650MG DOSE (2X325MG) PO PRN (20:45)
[2018-10-18 22:30] VITALS: BP_SYST 105; BP_SYST 108; BP_SYST 114; BP_DIAS 56; BP_DIAS 58
[2018-10-19 01:55] LABS: HEMATOCRIT 30.5 % (36.0-47.0); HEMOGLOBIN 9.6 g/dl (12.0-15.5)
[2018-10-19] MEDS: LEVALBUTEROL 1.25 MG/0.5 ML CONCENTRATE NEB INH SCH ×5 (04:00→21:05)
[2018-10-19 05:55] VITALS: BP_SYST 119; BP_SYST 140; BP_SYST 142; BP_DIAS 58; BP_DIAS 68; BP_DIAS 74
[2018-10-19 05:57] VITALS: BP 140/74
[2018-10-19] MEDS: FORMOTEROL FUMARATE 20 MCG/2 ML INHALATION SOLUTION (PERFOROMIST) INH SCH ×2 (07:47→21:05)
[2018-10-19] MEDS: TIOTROPIUM INHALER/CAPSULE (SPIRIVA) INH SCH (07:47)
[2018-10-19] MEDS: CARVedilol 12.5 MG TAB PO SCH ×2 (08:29→20:08)
[2018-10-19] MEDS: ASPIRIN 81 MG CHEW TABLET PO SCH (08:29)
[2018-10-19] MEDS: PANTOPRAZOLE 40MG TAB (PROTONIX) PO SCH ×2 (08:29→20:08)
[2018-10-19] MEDS: AZITHROMYCIN 250 MG TAB PO SCH (08:29)
[2018-10-19] MEDS: FUROSEMIDE 20 MG TAB PO SCH (08:29)
[2018-10-19] MEDS: DOCUSATE SODIUM 100 MG CAP PO SCH ×2 (08:29→20:07)
[2018-10-19] MEDS: ALPRAZolam 0.25 MG TAB PO SCH ×3 (08:30→20:06)
[2018-10-19] MEDS: predniSONE 20 MG TAB PO SCH (08:30)
[2018-10-19] MEDS: CAPTOpril 3.125 MG PER 1/4 TABLET PO SCH ×2 (08:31→20:07)
[2018-10-19 15:00] VITALS: BP_SYST 147; BP_SYST 149; BP_SYST 160; BP_DIAS 70; BP_DIAS 78
--- NOTE | 2018-10-19 15:56 | IPNPDOC ---
Text Note Date of Service The patient was seen on 10/19/18. NOTE SUBJECTIVE: Patient seen and examined at bedside. States she feels tired today. No acute overnight events reported. OBJECTIVE: VITAL SIGNS: Listed below. GENERAL: Fatigued. No sign of severe distress. HEENT: Normocephalic, atraumatic. nasal cannula in place CARDIOVASCULAR: Positive S1, S2, regular rate. LUNGS: Diminished breath sounds bilaterally. Mild wheezes appreciated. No significant crackles. ABDOMEN: Soft, nontender, nondistended. Bowel sounds present. EXTREMITIES: No edema appreciated. LABORATORY DATA: Listed below ASSESSMENT AND PLAN: #. Acute gastrointestinal (GI) bleed. - Due to [id number] myocardial infarction (non-STEMI) patient was on aspirin and Plavix and lovenox. Hold plavix therapy and lovenox. Will continue to trend the hemoglobin and hematocrit. Continue checking orthostatic blood pressures. - GI, Dr. Smith, consulted. Plavix is on hold since 10/16/18. Discussed with Dr. Smith, will hold plavix for 5 days before colonoscopy. - Due to history of non-STEMI, lotus notes developer, Dr. Norton, consulted for preoperative optimization. Will hold Lovenox and plavix. On the day of procedure, patient will continue her beta-olesya but ACEI will be on hold. # Abdominal pain - CT imaging performed. There is irregular heterogeneous mass in the pelvis contiguous with the uterus and sigmoid colon. There is suspicion for mass arising from the sigmoid colon. Patient will have colonoscopy. #. Chronic obstructive pulmonary disease (COPD), on chronic oxygen supplement. - Per pulmonology during last admission, patient will be need slow taper of steroid. Continue 20mg Daily for 7 days, then 10mg Daily for 7 days then resume 5mg Daily. # Parenchymal nodules. - Multiple parenchymal nodules noted on CT chest on 10/17/18. Neoplasm can not be excluded. Plavix is on hold #. Non-STEMI. - Plavix on hold due to GI bleed. Continue on statin, on carvedilol. #. History of parainfluenza infection, improved. #. Hospital-acquired pneumonia - status post a course of antibiotic treatment. C-reactive protein within normal range. Patient did have elevated white count. Continue to monitor. #. Pulmonary hypertension, on diuretic. #. Sinus tachycardia, - on beta olesya. Heart rate in the satisfactory range at this moment. #. Hypertension - on diuretic, on captopril and carvedilol. #. History of breast cancer, status post lumpectomy. #. Deep vein thrombosis (DVT) prophylaxis, - On thromboembolic deterrents (TEDs) and compression. VS,Fishbone, I+O VS, Fishbone, I+O Laboratory Tests 10/18/18 19:48 10/19/18 01:50 Vital Signs Date Time Temp Pulse Resp B/P (MAP) Pulse Ox O2 Delivery O2 Flow Rate FiO2 10/19/18 09:00 2.0 10/19/18 08:29 72 119/56 10/19/18 05:57 98.5 20 97 10/15/18 23:39 Nasal Cannula I&O- Last 24 Hours up to 6 AM 10/19/18 06:00 Intake Total 2360 ml Balance 2360 ml NYDIA SOLIS MD Oct 19, 2018 15:56
[2018-10-19] MEDS ORDERED: MOM 30ML SUSPENSION UDC PO ONE (17:30)
--- NOTE | 2018-10-19 17:32 | IPNPDOC ---
PM&R Progress Note DATE OF SERVICE: Oct 19, 2018 Senior Lead Java Developer Progress Note Subjective: Patient reports she feels well, that her dyspnea is slightly improving, but that she is still below her baseline in terms of endurance. She does not complain of abdominal cramping or fatigue today. REVIEW OF SYSTEMS: The following is a completed review of systems and has been reviewed. Review of systems otherwise unremarkable. PAIN: Patient self reports no pain EYES: Negative for recent vision loss EARS, NOSE, & THROAT: denies throat pain, rhinorrhea, or dysphagia CARDIOVASCULAR: denies chest pain or palpitations PULMONARY: +dyspnea at rest and cough GASTROINTESTINAL: negative for diarrhea or constipation, + abdominal cramping GENITOURINARY: Negative for dysuria MUSCULOSKELETAL: general deconditioning NEUROLOGICAL:no tremor or seizure activity HEMATOLOGICAL: +anemia, +GI bleed SKIN: +ecchymosis and thin skin PSYCHIATRIC: Unremarkable PHYSICAL EXAMINATION: VITAL SIGNS: Please see below. GENERAL: Pleasant and cooperative. No acute distress, but dyspneic, thin HEENT: PERRL. Extraocular movements intact. Clear conjunctiva CARDIOVASCULAR: Regular rate and rhythm. No murmurs, rubs, or gallops LUNGS: Scattered Rhonchi throughout with porr inspiratory effort, No wheezes ABDOMEN: Soft, nontender, nondistended. Positive bowel sounds. Normal active bowel sounds. NEUROLOGICAL: Alert and oriented times three. Cranial nerves II through XII g rossly intact. Sensation grossly intact in all 4 extremities EXTREMITIES: 5-\5 strength bilateral upper extremities. 5-\5 strength right lower extremity. 5-/5 strength in left lower extremity. SKIN: atrophied skin, scattered ecchymosis, left breast incision healed ASSESSMENT:83-year-old F with past medical history of COPD on home 02 who presents status post hospital acquired PNA with new diagnosis of Afib and recent NSTEMI. PLAN: 1. Rehab: PT, OT, assess for DMEs, stand-by assist with ambulation and with ADLs 2. Neuro: stable. monitor for delirium 3. cArdiac: NSTEMI due to cardiac demand in setting of COPD exacerbation and pneumonia- c/u ASA, Plavix on hold due to GI bleed and Lovenox stopped per medicine -ECHO showed Afib as well- will clarify with medicine anticoagulation for Afib specifically, s/p therapeutic Lovenox -HTN c/u beta-olesya, and ADEN-I, Lasix added back from home medication on discharge-stable -HLD on Lipitor 4. resp: pmh COPD s/p recent hypercapneic, hypoxic respiratory failure, DNI, titrate 02 to 88-92%, c/u breathing treatments, +parainfluenza with PNA, c/u Azythromycin and steroid taper-stable 5. GI ppx: c/u protonix BID given patient on steroid taper, s/p Lovenox, Plavix on hold for recent NSTEMI, c/u ASA- FOBT positive, scheduled for colonoscopy on October 21 for mass seen on recent CT and drop in Hgb with blood in stool- currently hemodynamically stable ASA and Plavix- FOBT ordered as well - will optimize bowel meds- Simethicone prn for cramping -leukocytosis likely from steroid use 6. DVT ppx: was on full dose Lovenox, however this has been stopped due to GI bleeding- c/u teds 7. : monitor PVRs, monitor for signs of UTI 8. Disp: 10/26/18 to home, progressing towards goals, will order Pulmonary Rehab consult Allergies Coded Allergies: alendronate sodium (Unverified Allergy, Unknown, 10/08/18) amoxicillin (Unverified Allergy, Unknown, 10/08/18) atorvastatin (Unverified Allergy, Unknown, 10/08/18) ibandronate sodium (Unverified Allergy, Unknown, 10/08/18) levofloxacin (Unverified Allergy, Unknown, 10/08/18) quinine (Unverified Allergy, Unknown, 10/08/18) risedronate sodium (Unverified Allergy, Unknown, 10/08/18) Vital Signs Vital Signs Date Time Temp Pulse Resp B/P (MAP) Pulse Ox O2 Delivery O2 Flow Rate FiO2 10/19/18 15:00 87 147/70 (95) 88 149/78 (101) 84 160/70 (100) 10/19/18 15:00 97.4 20 97 2.0 10/15/18 23:39 Nasal Cannula Laboratory Data CBC/BMP Laboratory Tests 10/18/18 19:48 10/19/18 01:50 Microbiology Microbiology 10/18/18 Stool Occult Blood (MAY) - Final, Complete Current Medications Current Medications Current Medications Acetaminophen (Tylenol Tab) 650 mg Q4HP PRN PO fever/MILD PAIN (PS 1-4) Last administered on 10/18/18 20:45; Start 10/14/18 at 16:30 Alprazolam (Xanax) 0.125 mg TID PO Last administered on 10/19/18 16:18; Start 10/14/18 at 21:00 Aspirin (Aspirin Chewable) 81 mg DAILY PO Last administered on 10/16/18 08:23; Start 10/15/18 at 09:00; Stop 10/16/18 at 09:53; Status DC Aspirin (Aspirin Chewable) 81 mg DAILY PO Last administered on 10/19/18 08:29; Start 10/17/18 at 09:00 Atorvastatin Calcium (Lipitor) 10 mg QHS PO Last administered on 10/18/18 20:39; Start 10/14/18 at 21:00 Azithromycin (Zithromax Tab) 250 mg DAILY PO Last administered on 10/19/18 08:29; Start 10/15/18 at 09:00; Stop 10/21/18 at 23:00 Bisacodyl (Dulcolax Suppository) 10 mg DAILYPRN PRN [place] CONSTIPATION Last administered on 10/16/18 07:47; Start 10/14/18 at 16:30 Captopril (CAPOten) 3.125 mg BID PO Last administered on 10/19/18 08:31; Start 10/14/18 at 21:00 Carvedilol (COReg) 25 mg BID PO Last administered on 10/19/18 08:29; Start 10/14/18 at 21:00 Clopidogrel Bisulfate (PLAVix) 75 mg DAILY PO Last administered on 10/16/18 08:23; Start 10/15/18 at 09:00; Stop 10/16/18 at 09:53; Status DC Docusate Sodium (Colace) 100 mg BID PO Last administered on 10/19/18 08:29; Start 10/14/18 at 21:00 Enoxaparin Sodium (Lovenox) 50 mg BID SC Last administered on 10/17/18 09:28; Start 10/14/18 at 21:00; Stop 10/17/18 at 15:11; Status DC Formoterol Fumarate (Perforomist) 20 mcg RBID INH Last administered on 10/19/18 07:47; Start 10/14/18 at 20:00 Furosemide (Lasix) 20 mg DAILY PO Last administered on 10/19/18at 08:29; Start 10/15/18 at 09:00 Home Med (Med Rec Complete!) ASDIRECTED XX ; Start 10/14/18 at 17:45; Stop 10/14/18 at 17:45; Status DC Levalbuterol HCl (Xopenex Neb) 1.25 mg RQ4H INH Last administered on 10/19/18at 15:27; Start 10/14/18 at 20:00 Magnesium Hydroxide (Milk Of Magnesia) 30 ml DAILYPRN PRN PO CONSTIPATION Last administered on 10/18/18 08:59; Start 10/14/18 at 16:30 Nitroglycerin (Nitrostat (1/ 150)) 0.4 mg Q5MP PRN SL CHEST PAIN; Start 10/14/18 at 16:30 Pantoprazole Sodium (Protonix) 40 mg BID PO Last administered on 10/19/18at 08:29; Start 10/14/18 at 21:00 Prednisone (Deltasone) 5 mg DAILY PO ; Start 11/02/18 at 09:00 Prednisone (Deltasone) 5 mg DAILY PO ; Start 10/24/18 at 09:00; Stop 10/24/18 at 09:00; Status DC Prednisone (Deltasone) 10 mg DAILY PO ; Start 10/21/18 at 09:00; Stop 10/21/18 at 09:00; Status DC Prednisone (Deltasone) 10 mg DAILY PO ; Start 10/26/18 at 09:00; Stop 11/02/18 at 08:59 Prednisone (Deltasone) 20 mg DAILY PO Last administered on 10/18/18at 09:00; Start 10/18/18 at 09:00; Stop 10/18/18 at 13:45; Status DC Prednisone (Deltasone) 20 mg DAILY PO Last administered on 10/19/18 08:30; Start 10/19/18 at 09:00; Stop 10/26/18 at 08:59 Prednisone (Deltasone) 30 mg DAILY PO Last administered on 10/17/18 09:27; Start 10/15/18 at 09:00; Stop 10/17/18 at 09:01; Status DC Senna (Senokot) 1 tab QHS PO Last administered on 10/18/18 20:38; Start at 21:00 Simethicone (Mylicon) 80 mg Q6HP PRN PO GAS PAIN Last administered on 10/17/18 07:21; Start 10/15/18 at 14:00 Tiotropium [place] (Spiriva Handihaler) 1 inhalation DAILY@08 INH Last admi nistered on 10/19/18at 07:47; Start 10/15/18 at 08:00 A-FIB/CHADSVASC A-FIB History Current/History of A-Fib/PAF?: Yes Current Oral Anticoagulant The: No MELISA OCHOA MD Oct 19, 2018 17:32
[2018-10-19 20:00] VITALS: BP 157/76
[2018-10-19] MEDS: SENNA 8.6 MG TAB (SENOKOT) PO SCH (20:07)
[2018-10-19] MEDS: ATORVASTATIN 10 MG TAB PO SCH (20:08)
[2018-10-19 22:10] VITALS: BP_SYST 104; BP_SYST 124; BP_SYST 129; BP_DIAS 56; BP_DIAS 58; BP_DIAS 61
[2018-10-20] MEDS: LEVALBUTEROL 1.25 MG/0.5 ML CONCENTRATE NEB INH SCH ×7 (00:27→23:04)
[2018-10-20] MEDS: ACETAMINOPHEN TAB 650MG DOSE (2X325MG) PO PRN ×4 (05:08→22:32)
[2018-10-20 06:00] VITALS: BP_SYST 128; BP_SYST 140; BP_SYST 148; BP_DIAS 60; BP_DIAS 67; BP_DIAS 69
[2018-10-20] MEDS ORDERED: MAGNESIUM CITRATE 300 ML BTL PO ONE (07:00)
[2018-10-20] MEDS: FORMOTEROL FUMARATE 20 MCG/2 ML INHALATION SOLUTION (PERFOROMIST) INH SCH ×2 (07:21→19:56)
[2018-10-20] MEDS: TIOTROPIUM INHALER/CAPSULE (SPIRIVA) INH SCH (07:21)
[2018-10-20 08:32] LABS: HEMATOCRIT 32.5 % (36.0-47.0); HEMOGLOBIN 10.2 g/dl (12.0-15.5); MEAN CORPUSCULAR HEMOGLOBIN 29.7 pg (27.0-33.0); MEAN CORPUSCULAR HGB CONC 31.4 g/dl (32.0-36.5); MEAN CORPUSCULAR VOLUME 94.8 fl (80.0-96.0); PLATELET COUNT, AUTOMATED 441 10^3/uL (150-450); RED BLOOD COUNT 3.43 10^6/uL (4.00-5.40); WHITE BLOOD COUNT 22.5 10^3/uL (4.0-10.0)
[2018-10-20] MEDS: AZITHROMYCIN 250 MG TAB PO SCH (08:45)
[2018-10-20] MEDS: ALPRAZolam 0.25 MG TAB PO SCH ×3 (08:45→22:30)
[2018-10-20] MEDS: ASPIRIN 81 MG CHEW TABLET PO SCH (08:45)
[2018-10-20] MEDS: PANTOPRAZOLE 40MG TAB (PROTONIX) PO SCH ×2 (08:45→22:31)
[2018-10-20] MEDS: predniSONE 20 MG TAB PO SCH (08:45)
[2018-10-20] MEDS: SIMETHICONE 80 MG CHEW TAB PO PRN (08:45)
[2018-10-20] MEDS: DOCUSATE SODIUM 100 MG CAP PO SCH ×2 (08:46→22:31)
[2018-10-20] MEDS: CARVedilol 12.5 MG TAB PO SCH ×2 (08:46→22:31)
[2018-10-20] MEDS: FUROSEMIDE 20 MG TAB PO SCH (08:46)
[2018-10-20] MEDS: CAPTOpril 3.125 MG PER 1/4 TABLET PO SCH ×2 (08:46→22:32)
--- NOTE | 2018-10-20 10:55 | IPNPDOC ---
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 REVIEW OF SYSTEMS: The following is a completed review of systems and has been reviewed. Review of systems otherwise unremarkable. PAIN: Patient self reports no pain EYES: Negative for recent vision loss EARS, NOSE, & THROAT: denies throat pain, rhinorrhea, or dysphagia CARDIOVASCULAR: denies chest pain or palpitations PULMONARY: +dyspnea at rest and cough GASTROINTESTINAL: negative for diarrhea or constipation, + abdominal cramping GENITOURINARY: Negative for dysuria MUSCULOSKELETAL: general deconditioning NEUROLOGICAL:no tremor or seizure activity HEMATOLOGICAL: +anemia, +GI bleed SKIN: +ecchymosis and thin skin PSYCHIATRIC: Unremarkable PHYSICAL EXAMINATION: VITAL SIGNS: Please see below. GENERAL: Pleasant and cooperative. No acute distress, but dyspneic, thin HEENT: PERRL. Extraocular movements intact. Clear conjunctiva CARDIOVASCULAR: Regular rate and rhythm. No murmurs, rubs, or gallops LUNGS: Scattered Rhonchi throughout with porr inspiratory effort, No wheezes ABDOMEN: Soft, nontender, nondistended. Positive bowel sounds. Normal active bowel sounds. NEUROLOGICAL: Alert and oriented times three. Cranial nerves II through XII grossly intact. Sensation grossly intact in all 4 extremities EXTREMITIES: 5-\5 strength bilateral upper extremities. 5-\5 strength right lower extremity. 5-/5 strength in left lower extremity. SKIN: atrophied skin, scattered ecchymosis, left breast incision healed ASSESSMENT:83-year-old F with past medical history of COPD on home 02 who presents status post hospital acquired PNA with new diagnosis of Afib and recent NSTEMI. PLAN: 1. Rehab: PT, OT, assess for DMEs, stand-by assist with ambulation and with ADLs 2. Neuro: stable. monitor for delirium 3. cArdiac: NSTEMI due to cardiac demand in setting of COPD exacerbation and pneumonia- c/u ASA, Plavix on hold due to GI bleed and Lovenox stopped per medicine -ECHO showed Afib as well- will clarify with medicine anticoagulation for Afib specifically, s/p therapeutic Lovenox -HTN c/u beta-olesya, and ADEN-I, Lasix added back from home medication on discharge-stable -HLD on Lipitor 4. resp: pmh COPD s/p recent hypercapneic, hypoxic respiratory failure, DNI, titrate 02 to 88-92%, c/u breathing treatments, +parainfluenza with PNA, c/u Azythromycin and steroid taper-stable 5. GI ppx: c/u protonix BID given patient on steroid taper, s/p Lovenox, Plavix on hold for recent NSTEMI, c/u ASA- FOBT positive, scheduled for colonoscopy on October 21 for mass seen on recent CT and drop in Hgb with blood in stool- curre ntly hemodynamically stable, Plavix on hold -Simethicone prn for cramping -leukocytosis likely from steroid use 6. DVT ppx: was on full dose Lovenox, however this has been stopped due to GI bleeding- c/u teds 7. : monitor PVRs, monitor for signs of UTI 8. Disp: 10/26/18 to home, progressing towards goals, ordered Pulmonary Rehab consult Allergies Coded Allergies: alendronate sodium (Unverified Allergy, Unknown, 10/08/18) amoxicillin (Unverified Allergy, Unknown, 10/08/18) atorvastatin (Unverified Allergy, Unknown, 10/08/18) ibandronate sodium (Unverified Allergy, Unknown, 10/08/18) levofloxacin (Unverified Allergy, Unknown, 10/08/18) quinine (Unverified Allergy, Unknown, 10/08/18) risedronate sodium (Unverified Allergy, Unknown, 10/08/18) Vital Signs Vital Signs Date Time Temp Pulse Resp B/P (MAP) Pulse Ox O2 Delivery O2 Flow Rate FiO2 10/20/18 08:46 94 148/69 10/20/18 08:00 2.0 10/20/18 06:00 98.1 19 93 10/15/18 23:39 Nasal Cannula Laboratory Data CBC/BMP Laboratory Tests 10/20/18 08:17 Red Blood Count 3.43 L, Mean Corpuscular Volume 94.8, Mean Corpuscular Hemoglobin 29.7, Mean Corpuscular Hemoglobin Concent 31.4 L, Red Cell Distribution Width 12.4 Labs 24H Laboratory Tests 2 10/20/18 08:17: Nucleated Red Blood Cells % (auto) 0.0 Microbiology Microbiology 10/18/18 Stool Occult Blood (MAY) - Final, Complete Current Medications Current Medications Current Medications Acetaminophen (Tylenol Tab) 650 mg Q4HP PRN PO fever/MILD PAIN (PS 1-4) Last administered on 10/20/18 05:08; Start 10/14/18 at 16:30 Alprazolam (Xanax) 0.125 mg TID PO Last administered on 10/20/18 08:45; Start 10/14/18 at 21:00 Aspirin (Aspirin Chewable) 81 mg DAILY PO Last administered on 10/16/18 08:23; Start 10/15/18 at 09:00; Stop 10/16/18 at 09:53; Status DC Aspirin (Aspirin Chewable) 81 mg DAILY PO Last administered on 10/20/18 08:45; Start 10/17/18 at 09:00 Atorvastatin Calcium (Lipitor) 10 mg QHS PO Last administered on 10/19/18 20:08; Start 10/14/18 at 21:00 Azithromycin (Zithromax Tab) 250 mg DAILY PO Last administered on 10/20/18 08:45; Start 10/15/18 at 09:00; Stop 10/21/18 at 23:00 Bisacodyl (Dulcolax Suppository) 10 mg DAILYPRN PRN [place] CONSTIPATION Last administered on 10/16/18 07:47; Start 10/14/18 at 16:30 Captopril (CAPOten) 3.125 mg BID PO Last administered on 10/20/18 08:46; Start 10/14/18 at 21:00 Carvedilol (COReg) 25 mg BID PO Last administered on 10/20/18 08:46; Start 10/14/18 at 21:00 Clopidogrel Bisulfate (PLAVix) 75 mg DAILY PO Last administered on 10/16/18 08:23; Start 10/15/18 at 09:00; Stop 10/16/18 at 09:53; Status DC Docusate Sodium (Colace) 100 mg BID PO Last administered on 10/19/18 20:07; Start 10/14/18 at 21:00 Enoxaparin Sodium (Lovenox) 50 mg BID SC Last administered on 10/17/18 09:28; Start 10/14/18 at 21:00; Stop 10/17/18 at 15:11; Status DC Formoterol Fumarate (Perforomist) 20 mcg RBID INH Last administered on 10/20/18at 07:21; Start 10/14/18 at 20:00 Furosemide (Lasix) 20 mg DAILY PO Last administered on 10/20/18at 08:46; Start 10/15/18 at 09:00 Home Med (Med Rec Complete!) ASDIRECTED XX ; Start 10/14/18 at 17:45; Stop 10/14/18 at 17:45; Status DC Levalbuterol HCl (Xopenex Neb) 1.25 mg RQ4H INH Last administered on 10/20/18at 00:27; Start 10/14/18 at 20:00 Magnesium Hydroxide (Milk Of Magnesia) 30 ml DAILYPRN PRN PO CONSTIPATION Last administered on 10/18/18at 08:59; Start 10/14/18 at 16:30 Nitroglycerin (Nitrostat (1/ 150)) 0.4 mg Q5MP PRN SL CHEST PAIN; Start 10/14/18 at 16:30 Pantoprazole Sodium (Protonix) 40 mg BID PO Last administered on 10/20/18at 08:45; Start 10/14/18 at 21:00 Prednisone (Deltasone) 5 mg DAILY PO ; Start 11/02/18 at 09:00 Prednisone (Deltasone) 5 mg DAILY PO ; Start 10/24/18 at 09:00; Stop 10/24/18 at 09:00; Status DC Prednisone (Deltasone) 10 mg DAILY PO ; Start 10/21/18 at 09:00; Stop 10/21/18 at 09:00; Status DC Prednisone (Deltasone) 10 mg DAILY PO ; Start 10/26/18 at 09:00; Stop 11/02/18 at 08:59 Prednisone (Deltasone) 20 mg DAILY PO Last administered on 10/18/18at 09:00; Start 10/18/18 at 09:00; Stop 10/18/18 at 13:45; Status DC Prednisone (Deltasone) 20 mg DAILY PO Last administered on 10/20/18at 08:45; Start 10/19/18 at 09:00; Stop 10/26/18 at 08:59 Prednisone (Deltasone) 30 mg DAILY PO Last administered on 10/17/18at 09:27; Start 10/15/18 at 09:00; Stop 10/17/18 at 09:01; Status DC Senna (Senokot) 1 tab QHS PO Last administered on 10/19/18at 20:07; Start 10/14/18 at 21:00 Simethicone (Mylicon) 80 mg Q6HP PRN PO GAS PAIN Last administered on 10/20/18 08:45; Start 10/15/18 at 14:00 Tiotropium [place] (Spiriva Handihaler) 1 inhalation DAILY@08 INH Last administered on 10/20/18 07:21; Start 10/15/18 at 08:00 A-FIB/CHADSVASC A-FIB History Current/History of A-Fib/PAF?: Yes MELISA OCHOA MD October 20, 2018 10:55
[2018-10-20 14:00] VITALS: BP_SYST 131; BP_SYST 156; BP_SYST 159; BP_DIAS 63; BP_DIAS 72; BP_DIAS 76
[2018-10-20] MEDS ORDERED: GOLYTELY SOLN 4000 ML BTL PO ONE (17:00)
[2018-10-20 22:00] VITALS: BP 155/78
[2018-10-20] MEDS: SENNA 8.6 MG TAB (SENOKOT) PO SCH (22:31)
[2018-10-20] MEDS: ATORVASTATIN 10 MG TAB PO SCH (22:31)
[2018-10-20 22:37] VITALS: BP 155/78
[2018-10-20 22:40] VITALS: BP 170/80
[2018-10-20 22:43] VITALS: BP 162/78
[2018-10-21] VITALS (9 sets, daily range): BP systolic 122–188; BP diastolic 60–98
[2018-10-21] MEDS: LEVALBUTEROL 1.25 MG/0.5 ML CONCENTRATE NEB INH SCH ×6 (03:34→23:54)
[2018-10-21] MEDS ORDERED: GOLYTELY SOLN 4000 ML BTL PO ONE (06:00)
[2018-10-21] MEDS: TIOTROPIUM INHALER/CAPSULE (SPIRIVA) INH SCH (07:42)
[2018-10-21] MEDS: FORMOTEROL FUMARATE 20 MCG/2 ML INHALATION SOLUTION (PERFOROMIST) INH SCH ×2 (07:43→20:02)
[2018-10-21] MEDS: AZITHROMYCIN 250 MG TAB PO SCH (08:44)
[2018-10-21] MEDS: ALPRAZolam 0.25 MG TAB PO SCH ×3 (08:45→21:21)
[2018-10-21] MEDS: ASPIRIN 81 MG CHEW TABLET PO SCH (08:45)
[2018-10-21] MEDS: predniSONE 20 MG TAB PO SCH (08:45)
[2018-10-21] MEDS: DOCUSATE SODIUM 100 MG CAP PO SCH ×2 (08:46→21:00)
[2018-10-21] MEDS: CAPTOpril 3.125 MG PER 1/4 TABLET PO SCH ×2 (08:46→21:21)
[2018-10-21] MEDS: CARVedilol 12.5 MG TAB PO SCH ×2 (08:46→21:21)
[2018-10-21] MEDS: FUROSEMIDE 20 MG TAB PO SCH (08:47)
[2018-10-21] MEDS: PANTOPRAZOLE 40MG TAB (PROTONIX) PO SCH ×2 (08:48→21:21)
[2018-10-21] MEDS ORDERED: predniSONE 10 MG TAB PO SCH (09:00)
[2018-10-21] MEDS ORDERED: MAGNESIUM CITRATE 300 ML BTL PO ONE (09:00)
[2018-10-21] MEDS: SIMETHICONE 80 MG CHEW TAB PO PRN (09:33)
--- NOTE | 2018-10-21 10:46 | IPNPDOC ---
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 REVIEW OF SYSTEMS: The following is a completed review of systems and has been reviewed. Review of systems otherwise unremarkable. PAIN: Patient self reports no pain EYES: Negative for recent vision loss EARS, NOSE, & THROAT: denies throat pain, rhinorrhea, or dysphagia CARDIOVASCULAR: denies chest pain or palpitations PULMONARY: +dyspnea at rest and cough GASTROINTESTINAL: negative for diarrhea or constipation, + abdominal cramping GENITOURINARY: Negative for dysuria MUSCULOSKELETAL: general deconditioning NEUROLOGICAL:no tremor or seizure activity HEMATOLOGICAL: +anemia, +GI bleed SKIN: +ecchymosis and thin skin PSYCHIATRIC: Unremarkable PHYSICAL EXAMINATION: VITAL SIGNS: Please see below. GENERAL: Pleasant and cooperative. No acute distress, but dyspneic, thin HEENT: PERRL. Extraocular movements intact. Clear conjunctiva CARDIOVASCULAR: Regular rate and rhythm. No murmurs, rubs, or gallops LUNGS: Scattered Rhonchi throughout with porr inspiratory effort, No wheezes ABDOMEN: Soft, nontender, nondistended. Positive bowel sounds. Normal active bowel sounds. NEUROLOGICAL: Alert and oriented times three. Cranial nerves II through XII grossly intact. Sensation grossly intact in all 4 extremities EXTREMITIES: 5-\5 strength bilateral upper extremities. 5-\5 strength right lower extremity. 5-/5 strength in left lower extremity. SKIN: atrophied skin, scattered ecchymosis, left breast incision healed ASSESSMENT:83-year-old F with past medical history of COPD on home 02 who presents status post hospital acquired PNA with new diagnosis of Afib and recent NSTEMI. PLAN: 1. Rehab: PT, OT, assess for DMEs, stand-by assist with ambulation and with ADLs-medical hold today for colonoscopy 2. Neuro: stable. monitor for delirium 3. cArdiac: NSTEMI due to cardiac demand in setting of COPD exacerbation and pneumonia- c/u ASA, Plavix on hold due to GI bleed and Lovenox stopped per medicine -ECHO showed Afib as well- will clarify with medicine anticoagulation for Afib specifically, s/p therapeutic Lovenox -HTN c/u beta-olesya, and ADEN-I, Lasix added back from home medication on discharge-stable -HLD on Lipitor 4. resp: pmh COPD s/p recent hypercapneic, hypoxic respiratory failure, DNI, titrate 02 to 88-92%, c/u breathing treatments, +parainfluenza with PNA, c/u Azythromycin and steroid taper-stable 5. GI ppx: c/u protonix BID given patient on steroid taper, s/p Lovenox, Plavix on hold for recent NSTEMI, c/u ASA- FOBT positive, scheduled for colonoscopy on October 21 for mass seen on recent CT and drop in Hgb with blood in stool- currently hemodynamically stable, Plavix on hold -Simethicone prn for cramping -leukocytosis likely from steroid use 6. DVT ppx: was on full dose Lovenox, however this has been stopped due to GI bleeding- c/u teds 7. : monitor PVRs, monitor for signs of UTI 8. Disp: 10/26/18 to home, progressing towards goals, ordered Pulmonary Rehab consult Allergies Coded Allergies: alendronate sodium (Unverified Allergy, Unknown, 10/08/18) amoxicillin (Unverified Allergy, Unknown, 10/08/18) atorvastatin (Unverified Allergy, Unknown, 10/08/18) ibandronate sodium (Unverified Allergy, Unknown, 10/08/18) levofloxacin (Unverified Allergy, Unknown, 10/08/18) quinine (Unverified Allergy, Unknown, 10/08/18) risedronate sodium (Unverified Allergy, Unknown, 10/08/18) Vital Signs Vital Signs Date Time Temp Pulse Resp B/P (MAP) Pulse Ox O2 Delivery O2 Flow Rate FiO2 10/21/18 08:46 97 163/78 10/21/18 06:42 98.7 20 96 2.0 10/15/18 23:39 Nasal Cannula Microbiology Microbiology 10/18/18 Stool Occult Blood (MAY) - Final, Complete Current Medications Current Medications Current Medications Acetaminophen (Tylenol Tab) 650 mg Q4HP PRN PO fever/MILD PAIN (PS 1-4) Last administered on 10/20/18at 22:32; Start 10/14/18 at 16:30 Alprazolam (Xanax) 0.125 mg TID PO Last administered on 10/21/18at 08:45; Start 10/14/18 at 21:00 Aspirin (Aspirin Chewable) 81 mg DAILY PO Last administered on 10/16/18 08:23; Start 10/15/18 at 09:00; Stop 10/16/18 at 09:53; Status DC Aspirin (Aspirin Chewable) 81 mg DAILY PO Last administered on 10/21/18 08:45; Start 10/17/18 at 09:00 Atorvastatin Calcium (Lipitor) 10 mg QHS PO Last administered on 10/20/18 22:31; Start 10/14/18 at 21:00 Azithromycin (Zithromax Tab) 250 mg DAILY PO Last administered on 10/21/18 0 8:44; Start 10/15/18 at 09:00; Stop 10/21/18 at 23:00 Bisacodyl (Dulcolax Suppository) 10 mg DAILYPRN PRN [place] CONSTIPATION Last a dministered on 10/16/18 07:47; Start 10/14/18 at 16:30 Captopril (CAPOten) 3.125 mg BID PO Last administered on 10/21/18 08:46; Start 10/14/18 at 21:00 Carvedilol (COReg) 25 mg BID PO Last administered on 10/21/18 08:46; Start 10/14/18 at 21:00 Clopidogrel Bisulfate (PLAVix) 75 mg DAILY PO Last administered on 10/16/18 08:23; Start 10/15/18 at 09:00; Stop 10/16/18 at 09:53; Status DC Docusate Sodium (Colace) 100 mg BID PO Last administered on 10/20/18 22:31; Start 10/14/18 at 21:00 Enoxaparin Sodium (Lovenox) 50 mg BID SC Last administered on 10/17/18 09:28; Start 10/14/18 at 21:00; Stop 10/17/18 at 15:11; Status DC Formoterol Fumarate (Perforomist) 20 mcg RBID INH Last administered on 10/21/18 07:43; Start 10/14/18 at 20:00 Furosemide (Lasix) 20 mg DAILY PO Last administered on 10/20/18 08:46; Start 10/15/18 at 09:00; Status Future hold Home Med (Med Rec Complete!) ASDIRECTED XX ; Start 10/14/18 at 17:45; Stop 10/14/18 at 17:45; Status DC Levalbuterol HCl (Xopenex Neb) 1.25 mg RQ4H INH Last administered on 10/21/18at 03:34; Start 10/14/18 at 20:00 Magnesium Hydroxide (Milk Of Magnesia) 30 ml DAILYPRN PRN PO CONSTIPATION Last administered on 10/18/18at 08:59; Start 10/14/18 at 16:30 Miscellaneous (Unresolved Clarification Entry) SEE LABEL COMMENTS DAILY XX ; Start 10/21/18 at 09:00 Nitroglycerin (Nitrostat (1/ 150)) 0.4 mg Q5MP PRN SL CHEST PAIN; Start 10/14/18 at 16:30 Pantoprazole Sodium (Protonix) 40 mg BID PO Last administered on 10/21/18at 08:48; Start 10/14/18 at 21:00 Prednisone (Deltasone) 5 mg DAILY PO ; Start 11/02/18 at 09:00 Prednisone (Deltasone) 5 mg DAILY PO ; Start 10/24/18 at 09:00; Stop 10/24/18 at 09:00; Status DC Prednisone (Deltasone) 10 mg DAILY PO ; Start 10/21/18 at 09:00; Stop 10/21/18 at 09:00; Status DC Prednisone (Deltasone) 10 mg DAILY PO ; Start 10/26/18 at 09:00; Stop 11/02/18 at 08:59 Prednisone (Deltasone) 20 mg DAILY PO Last administered on 10/18/18at 09:00; Start 10/18/18 at 09:00; Stop 10/18/18 at 13:45; Status DC Prednisone (Deltasone) 20 mg DAILY PO Last administered on 10/21/18at 08:45; Start 10/19/18 at 09:00; Stop 10/26/18 at 08:59 Prednisone (Deltasone) 30 mg DAILY PO Last administered on 10/17/18at 09:27; Start 10/15/18 at 09:00; Stop 10/17/18 at 09:01; Status DC Senna (Senokot) 1 tab QHS PO Last administered on 10/20/18at 22:31; Start 10/14/18 at 21:00 Simethicone (Mylicon) 80 mg Q6HP PRN PO GAS PAIN Last administered on 10/21/18at 09:33; Start 10/15/18 at 14:00 Tiotropium [place] (Spiriva Handihaler) 1 inhalation DAILY@08 INH Last administered on 10/21/18at 07:42; Start 10/15/18 at 08:00 A-FIB/CHADSVASC A-FIB History Current/History of A-Fib/PAF?: Yes MELISA OCHOA MD October 21, 2018 10:46
--- NOTE | 2018-10-21 15:16 | IPNPDOC ---
Subjective Date Seen The patient was seen on 10/21/18. Subjective Chief Complaint/HPI 83-year-old F with past medical history of COPD on home 02 who presents status post hospital acquired PNA with new diagnosis of Afib and recent NSTEMI Objective Physical Examination Other physical findings General: Currently in mild respiratory distress, accessory muscle use and pursed lip breathing Skin: Warm, dry, intact. Cardiovascular: irregular rate and rhythm, no MRG, + jugular venous distention, BLE edema. Respiratory: Tachypneic, Posterior inspiratory crackles with accessory muscle use noted. Abdomen: Bowel sounds +, no tenderness, no distention Musculoskeletal: No joint deformities, Neurologic: CN 2-12 grossly intact, alert and oriented 3 Psychiatric: Appropriate mood and affect, no anxiety or agitation. A-FIB/CHADSVASC A-FIB History Current/History of A-Fib/PAF?: Yes Current Oral Anticoagulant The: No Age/Risk Factor Scoring CHADSVASC: CHADSVASC Response (Comments) Value Age Risk Factor Age >/= 75 years old 2 Gender Risk Factor Female 1 Hx of CHF Yes 1 Hx of HTN Yes 1 Total 5 Treatment Treatment ordered: Holding Other Reason Anticoagulant not given: Current bleeding Assessment /Plan Assessment NSTEMI -Initially on aspirin, Plavix, Lovenox. ACS protocol, which was discontinued due to acute bleed -Allergic to statin therapy -Continue other CAD risk factor modifications Atrial fibrillation -Currently in sinus rhythm and tachycardic -Not a candidate for anticoagulation therapy given bleed Acute gastrointestinal (GI) bleed -Colonoscopy to evaluate for GI source of bleed. -Lovenox, Plavix, on hold -Continue to trend hemoglobin Acute COPD -Currently requiring 5 L oxygen for adequate saturation. Post colonoscopy -Bronchodilator therapy has been administered already -Stat dose Lasix has been ordered to be administered IV -Stat chest x-ray -Obtain BNP -Check arterial blood gas -Place on BiPAP and transfer to MedSurg unit if indicated Influenza -Continue droplet precautions -Respiratory support -Scheduled bronchodilator therapy HCAP -Treated Hypertension -Continue ADEN inhibitor -Change beta olesya, to more cardioselective given underlying severe COPD Deep vein thrombosis prophylaxis, - TEDs Plan/VTE VTE Prophylaxis Ordered?: Yes VTE Exclusion Pharmacological: Active Bleeding VS, I&O, 24H, Fishbone Vital Signs/I&O Vital Signs Date Time Temp Pulse Resp B/P (MAP) Pulse Ox O2 Delivery O2 Flow Rate FiO2 10/21/18 14:00 97.9 92 19 149/69 (95) 92 2.0 10/15/18 23:39 Nasal Cannula I&O- Last 24 Hours up to 6 AM 10/21/18 06:00 Intake Total 1790 ml Balance 1790 ml Laboratory Data Microbiology Microbiology 10/18/18 Stool Occult Blood (MAY) - Final, Complete SHILPA COLEMAN DIE CUTTER OPERATOR October 21, 2018 15:16
[2018-10-21] MEDS ORDERED: LIDOCAINE 2% INJ 100 MG/5 ML SDV (FOR ANES.) As Ordered ONE (16:00)
[2018-10-21] MEDS ORDERED: PROPOFOL 200 MG/20 ML VIAL As Ordered ONE (16:00)
--- NOTE | 2018-10-21 16:55 | ROOR ---
Patient Name: Madeline Parsons Procedure Date: 10/21/2018 3:35 PM Date of : 1935 Age: 83 Room: [facility] Gender: Female Note Status: Finalized Procedure: Colonoscopy Indications: Hematochezia, Abnormal CT of the GI tract Providers: Jim SMITH MD Referring MD: 2. Inpatient 2. Inpatient, Dashawn Baker MD Requesting Provider: Medicines: Monitored Anesthesia Care Complications: No immediate complications. Procedure: Pre-Anesthesia Assessment: - The heart rate, respiratory rate, oxygen saturations, blood pressure, adequacy of pulmonary ventilation, and response to care were monitored throughout the procedure. The Colonoscope was introduced through the anus and advanced to the cecum, identified by appendiceal orifice and ileocecal valve. The colonoscopy was extremely difficult due to extrinsic compression. Successful completion of the procedure was aided by changing the patient to a supine position. The patient tolerated the procedure well. The quality of the bowel preparation was adequate and fair. Findings: The perianal and digital rectal examinations were normal. A 10 mm polyp was found in the appendiceal orifice. The polyp was carpet-like. The polyp was removed with a piecemeal technique using a cold snare. Resection and retrieval were complete. To prevent bleeding after the polypectomy, two hemostatic clips were successfully placed. A 20 mm polyp was found in the mid sigmoid colon. The polyp was semi-pedunculated. An endoloop was maneuvered over the polyp stalk and closed at the mucosal attachment prior to removal in order to prevent bleeding. Resection and retrieval were complete. To prevent bleeding after the polypectomy, two hemostatic clips were successfully placed. There was no bleeding at the end of the procedure. Multiple medium-mouthed diverticula were found in the sigmoid colon. There was narrowing of the colon in association with the diverticular opening. There was significant spasm and apparent extrinsic compression in the mid sigmoid colon. (very difficult to visualize, but I do not see any colonic masses) Internal hemorrhoids were found during retroflexion. The hemorrhoids were medium-sized. Impression: - Preparation of the colon was suboptimal/fair overall. - Severe tortuosity or extrinsic compression in the mid sigmoid colon. (very difficult to visualize this area fully, but I do not see any intrinsic colonic masses). - One 10 mm polyp at the appendiceal orifice, removed piecemeal using a cold snare. Resected and retrieved. Clips were placed. - One 20 mm polyp in the mid sigmoid colon. Resected and retrieved. Clips were placed. - Moderate diverticulosis in the sigmoid colon. Significant spasm. - Internal hemorrhoids. Recommendation: - Recommend referral to a nut feeder to assess pelvic lesion seen on CT. - Continue ASA, may resume plavix in 1 week. - Return to referring physician - I will sign off at this time. - She does not need routine follow up with me. Can f/u PRN Jim Smith MD Jim SMITH MD 10/21/2018 4:54:40 PM Electronically signed by Jim SMITH MD Number of Addenda: 0 Note Initiated On: 10/21/2018 3:35 PM Estimated Blood Loss: Estimated blood loss: none.
[2018-10-21] MEDS ORDERED: FUROSEMIDE 20 MG/2 ML VIAL (J1940) IV ONE (18:15)
[2018-10-21] MEDS ORDERED: FUROSEMIDE 40 MG/4 ML VIAL (J1940) IV ONE (18:30)
[2018-10-21 18:59] LABS: ABG BASE EXCESS 10.9 (-2.0-2.0); ABG HCO3 37.5 MEQ/L (22.0-26.0); ABG O2 SATURATION 96.2 % (95.0-99.0); ABG STANDARD HCO3 34.6 MEQ/L (22.0-26.0); ABG TOTAL CO2 39.4 MEQ/L (23.0-31.0); ABG pH (ARTERIAL) 7.405 UNITS (7.350-7.450)
[2018-10-21 19:00] LABS: ABG PARTIAL PRESSURE CO2 61.3 mmHg (35.0-45.0)
[2018-10-21] MEDS: SENNA 8.6 MG TAB (SENOKOT) PO SCH (21:00)
[2018-10-21] MEDS: ATORVASTATIN 10 MG TAB PO SCH (21:21)
[2018-10-21] MEDS: ACETAMINOPHEN TAB 650MG DOSE (2X325MG) PO PRN (22:34)
[2018-10-22 00:40] VITALS: BP 110/60
[2018-10-22 02:00] VITALS: BP 128/62
[2018-10-22] MEDS: LEVALBUTEROL 1.25 MG/0.5 ML CONCENTRATE NEB INH SCH ×4 (04:43→15:20)
[2018-10-22 06:00] VITALS: BP 139/64
[2018-10-22] MEDS: TIOTROPIUM INHALER/CAPSULE (SPIRIVA) INH SCH (08:00)
[2018-10-22] MEDS: FORMOTEROL FUMARATE 20 MCG/2 ML INHALATION SOLUTION (PERFOROMIST) INH SCH (08:00)
[2018-10-22] MEDS: ALPRAZolam 0.25 MG TAB PO SCH (08:26)
[2018-10-22] MEDS: predniSONE 20 MG TAB PO SCH (08:26)
[2018-10-22] MEDS: ASPIRIN 81 MG CHEW TABLET PO SCH (08:26)
[2018-10-22] MEDS: PANTOPRAZOLE 40MG TAB (PROTONIX) PO SCH (08:27)
[2018-10-22] MEDS: ACETAMINOPHEN TAB 650MG DOSE (2X325MG) PO PRN (08:27)
[2018-10-22] MEDS: CAPTOpril 3.125 MG PER 1/4 TABLET PO SCH (08:27)
[2018-10-22 08:28] VITALS: BP 139/64
[2018-10-22] MEDS: CARVedilol 12.5 MG TAB PO SCH (08:28)
[2018-10-22] MEDS: FUROSEMIDE 20 MG TAB PO SCH (08:28)
--- NOTE | 2018-10-22 09:04 | REP ---
Chest one-view HISTORY: Shortness of breath Comparison: 10/08/2018 Patchy density is present in the lower lobes consistent with bibasilar infiltrates unchanged on the right and decreased on the left. The heart is normal in size. The pulmonary vasculature is normal in appearance. Impression: Bibasilar infiltrates unchanged on the right and decreased on the left. Electronically Signed by Ari Saleh MD 10/22/2018 08:56 A
--- NOTE | 2018-10-22 09:43 | IPNPDOC ---
Subjective Date Seen The patient was seen on 10/22/18. Subjective Chief Complaint/HPI 83-year-old F with past medical history of COPD on home 02 who presents status post hospital acquired PNA with new diagnosis of Afib and recent NSTEMI Events since last encounter No acute issues overnight, still persisting shortness of breath, up to chair and bedside, denies any acute discomfort. Objective Physical Examination Other physical findings General: up to chair at bedside, OT in room. still signs of mild respiratory compromise Skin: Warm, dry, intact. Cardiovascular: irregular rate and rhythm, no MRG, + jugular venous distention, BLE edema. Respiratory: Posterior inspiratory crackles with accessory muscle use noted. Abdomen: Bowel sounds +, no tenderness, no distention Musculoskeletal: No joint deformities, Neurologic: CN 2-12 grossly intact, alert and oriented 3 Psychiatric: Appropriate mood and affect, no anxiety or agitation. A-FIB/CHADSVASC A-FIB History Current/History of A-Fib/PAF?: Yes Current Oral Anticoagulant The: No Age/Risk Factor Scoring CHADSVASC: CHADSVASC Response (Comments) Value Age Risk Factor Age >/= 75 years old 2 Gender Risk Factor Female 1 Hx of CHF Yes 1 Hx of HTN Yes 1 Total 5 Treatment Treatment ordered: NONE Reason Anticoagulant not given: Current bleeding Assessment /Plan Assessment NSTEMI -. Elevated cardiac biomarkers, thought to be likely due to demand ischemia with acute respiratory failure -Initially on aspirin, Plavix, Lovenox. ACS protocol, which was discontinued due to acute bleed -Allergic to statin therapy -Continue other CAD risk factor modifications Paroxysmal Atrial fibrillation -Maintaining sinus rhythm with periodic tachycardia. Given underlying respiratory compromise -Not a candidate for anticoagulation therapy given bleed Acute gastrointestinal (GI) bleed -Colonoscopy completed yesterday and biopsy -Continue to hold all blood thinners until cleared by GI -Hemoglobin seems stable at this time Acute COPD -Still showing marked respiratory compromise with some tripoding and unable to speak in full sentences -Oxygen demands. This morning, however, her down to 3 L, which is closer to patient's baseline -Arterial blood gas completely. Then last night showed worsening retention of CO2 -Continue nebulizer therapy -Continue steroid therapy -Propulsid, turning levels pending to determine if persisting infectious process -Likely transfer patient back to inpatient unit since unable to participate with physical therapy at this time Influenza -Continue droplet precautions -Respiratory support -Scheduled bronchodilator therapy HCAP -Persisting infiltrates on imaging study -With question for pneumonia versus congestive heart failure -White blood count also markedly elevated exponentially at 29 -Continue nonsteroid therapy -Antibiotic therapy if Pro-calcitonin level positive Hypertension -Continue ADEN inhibitor -Change beta olesya, to more cardioselective given underlying severe COPD Deep vein thrombosis prophylaxis, - TEDs Plan/VTE VTE Prophylaxis Ordered?: Yes VTE Exclusion Pharmacological: Active Bleeding VS, I&O, 24H, Fishbone Vital Signs/I&O Vital Signs Date Time Temp Pulse Resp B/P (MAP) Pulse Ox O2 Delivery O2 Flow Rate FiO2 10/22/18 08:28 92 139/64 10/22/18 06:00 97.2 20 98 2.0 I&O- Last 24 Hours up to 6 AM 10/22/18 06:00 Intake Total 1350 ml Output Total 1100 ml Balance 250 ml Laboratory Data 24H LABS Laboratory Tests 2 10/21/18 18:49: UO-Kra-D-Type Natriuretic Peptide 3142H 10/21/18 18:51: Blood Gas Bicarbonate Standard 34.6H, Arterial Blood pH 7.405, Arterial Blood Partial Pressure CO2 61.3*H, Arterial Blood Partial Pressure O2 84.0, Arterial Blood Total CO2 39.4H, Arterial Blood HCO3 37.5H, Arterial Blood Base Excess 10.9H, Arterial Blood Oxygen Saturation 96.2 Microbiology Microbiology 10/18/18 Stool Occult Blood (MAY) - Final, Complete SHILPA COLEMAN PETROPHYSICAL ENGINEER October 22, 2018 09:43
[2018-10-22] MEDS ORDERED: SIMETHICONE 80 MG CHEW TAB PO SCH (10:30)
[2018-10-22 10:35] LABS: HEMATOCRIT 29.1 % (36.0-47.0); HEMOGLOBIN 9.1 g/dl (12.0-15.5); MEAN CORPUSCULAR HEMOGLOBIN 29.6 pg (27.0-33.0); MEAN CORPUSCULAR HGB CONC 31.3 g/dl (32.0-36.5); MEAN CORPUSCULAR VOLUME 94.8 fl (80.0-96.0); PLATELET COUNT, AUTOMATED 409 10^3/uL (150-450); RED BLOOD COUNT 3.07 10^6/uL (4.00-5.40); WHITE BLOOD COUNT 29.2 10^3/uL (4.0-10.0)
--- NOTE | 2018-10-22 10:47 | IPNPDOC ---
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 REVIEW OF SYSTEMS: The following is a completed review of systems and has been reviewed. Review of systems otherwise unremarkable. PAIN: Patient self reports no pain EYES: Negative for recent vision loss EARS, NOSE, & THROAT: denies throat pain, rhinorrhea, or dysphagia CARDIOVASCULAR: denies chest pain or palpitations PULMONARY: +dyspnea at rest and cough GASTROINTESTINAL: negative for diarrhea or constipation, + abdominal cramping GENITOURINARY: Negative for dysuria MUSCULOSKELETAL: general deconditioning NEUROLOGICAL:no tremor or seizure activity HEMATOLOGICAL: +anemia, +GI bleed SKIN: +ecchymosis and thin skin PSYCHIATRIC: Unremarkable PHYSICAL EXAMINATION: VITAL SIGNS: Please see below. GENERAL: Pleasant and cooperative. No acute distress, but dyspneic, thin HEENT: PERRL. Extraocular movements intact. Clear conjunctiva CARDIOVASCULAR: Regular rate and rhythm. No murmurs, rubs, or gallops LUNGS: Scattered Rhonchi throughout with porr inspiratory effort, No wheezes ABDOMEN: Soft, nontender, nondistended. Positive bowel sounds. Normal active bowel sounds. NEUROLOGICAL: Alert and oriented times three. Cranial nerves II through XII grossly intact. Sensation grossly intact in all 4 extremities EXTREMITIES: 5-\5 strength bilateral upper extremities. 5-\5 strength right lower extremity. 5-/5 strength in left lower extremity. SKIN: atrophied skin, scattered ecchymosis, left breast incision healed ASSESSMENT:83-year-old F with past medical history of COPD on home 02 who presents status post hospital acquired PNA with new diagnosis of Afib and recent NSTEMI. PLAN: 1. Rehab: PT, OT, assess for DMEs, stand-by assist with ambulation and with ADLs-medical hold 10/20 and 10/21 2. Neuro: stable. monitor for delirium 3. cArdiac: NSTEMI due to cardiac demand in setting of COPD exacerbation and pneumonia- c/u ASA, Plavix on hold due to GI bleed and Lovenox stopped per medicine -ECHO showed Afib as well- will clarify with medicine anticoagulation for Afib specifically, s/p therapeutic Lovenox -HTN c/u beta-olesya, and ADEN-I, Lasix added back from home medication on discharge-stable -HLD on Lipitor 4. resp: pmh COPD s/p recent hypercapneic, hypoxic respiratory failure, DNI, titrate 02 to 88-92%, c/u breathing treatments, +parainfluenza with PNA, c/u Azythromycin and steroid taper-stable 5. GI ppx: c/u protonix BID given patient on steroid taper, s/p Lovenox, Plavix on hold for recent NSTEMI, c/u ASA- FOBT positive, scheduled for colonoscopy on October 21 for mass seen on recent CT and drop in Hgb with blood in stool- currently hemodynamically stable, Plavix on hold -Simethicone prn for cramping -leukocytosis likely from steroid use 6. DVT ppx: was on full dose Lovenox, however this has been stopped due to GI bleeding- c/u teds 7. : monitor PVRs, monitor for signs of UTI 8. Disp:discahrge to acute care setting given worsening respiratory status Allergies Coded Allergies: alendronate sodium (Unverified Allergy, Unknown, 10/08/18) amoxicillin (Unverified Allergy, Unknown, 10/08/18) atorvastatin (Unverified Allergy, Unknown, 10/08/18) ibandronate sodium (Unverified Allergy, Unknown, 10/08/18) levofloxacin (Unverified Allergy, Unknown, 10/08/18) quinine (Unverified Allergy, Unknown, 10/08/18) risedronate sodium (Unverified Allergy, Unknown, 10/08/18) Vital Signs Vital Signs Date Time Temp Pulse Resp B/P (MAP) Pulse Ox O2 Delivery O2 Flow Rate FiO2 10/22/18 08:28 92 139/64 10/22/18 06:00 97.2 20 98 2.0 Laboratory Data CBC/BMP Laboratory Tests 10/22/18 09:58 Red Blood Count 3.07 L, Mean Corpuscular Volume 94.8, Mean Corpuscular Hemoglobin 29.6, Mean Corpuscular Hemoglobin Concent 31.3 L, Red Cell Distribution Width 12.6 Labs 24H Laboratory Tests 2 10/21/18 18:49: UE-Htv-P-Type Natriuretic Peptide 3142H 10/21/18 18:51: Blood Gas Bicarbonate Standard 34.6H, Arterial Blood pH 7.405, Arterial Blood Partial Pressure CO2 61.3*H, Arterial Blood Partial Pressure O2 84.0, Arterial Blood Total CO2 39.4H, Arterial Blood HCO3 37.5H, Arterial Blood Base Excess 10.9H, Arterial Blood Oxygen Saturation 96.2 10/22/18 09:58: Nucleated Red Blood Cells % (auto) 0.0 Microbiology Microbiology 10/18/18 Stool Occult Blood (MAY) - Final, Complete Current Medications Current Medications Current Medications Acetaminophen (Tylenol Tab) 650 mg Q4HP PRN PO fever/MILD PAIN (PS 1-4) Last administered on 10/22/18 08:27; Start 10/14/18 at 16:30 Alprazolam (Xanax) 0.125 mg TID PO Last administered on 10/22/18 08:26; Start 10/14/18 at 21:00 Aspirin (Aspirin Chewable) 81 mg DAILY PO Last administered on 10/16/18 08:23; Start 10/15/18 at 09:00; Stop 10/16/18 at 09:53; Status DC Aspirin (Aspirin Chewable) 81 mg DAILY PO Last administered on 10/22/18 08:26; Start 10/17/18 at 09:00 Atorvastatin Calcium (Lipitor) 10 mg QHS PO Last administered on 10/21/18 2 1:21; Start 10/14/18 at 21:00 Azithromycin (Zithromax Tab) 250 mg DAILY PO Last administered on 10/21/18 08:44; Start 10/15/18 at 09:00; Stop 10/21/18 at 10:47; Status DC Bisacodyl (Dulcolax Suppository) 10 mg DAILYPRN PRN DC CONSTIPATION Last administered on 10/16/18 07:47; Start 10/14/18 at 16:30 Captopril (CAPOten) 3.125 mg BID PO Last administered on 10/22/18 08:27; Start 10/14/18 at 21:00 Carvedilol (COReg) 25 mg BID PO Last administered on 10/22/18 08:28; Start 10/14/18 at 21:00 Clopidogrel Bisulfate (PLAVix) 75 mg DAILY PO Last administered on 4/27/19at 08:23; Start 10/15/18 at 09:00; Stop 10/16/18 at 09:53; Status DC Docusate Sodium (Colace) 100 mg BID PO Last administered on 10/20/18at 22:31; Start 10/14/18 at 21:00 Enoxaparin Sodium (Lovenox) 50 mg BID SC Last administered on 10/17/18at 09:28; Start 10/14/18 at 21:00; Stop 10/17/18 at 15:11; Status DC Formoterol Fumarate (Perforomist) 20 mcg RBID INH Last administered on 10/21/18at 20:02; Start 10/14/18 at 20:00 Furosemide (Lasix) 20 mg DAILY PO Last administered on 10/22/18 08:28; Start 10/15/18 at 09:00; Status Future hold Home Med (Med Rec Complete!) ASDIRECTED XX ; Start 10/14/18 at 17:45; Stop 10/14/18 at 17:45; Status DC Levalbuterol HCl (Xopenex Neb) 1.25 mg RQ4H INH Last administered on 10/22/18at 04:44; Start 10/14/18 at 20:00 Magnesium Hydroxide (Milk Of Magnesia) 30 ml DAILYPRN PRN PO CONSTIPATION Last administered on 10/18/18at 08:59; Start 10/14/18 at 16:30 Miscellaneous (Unresolved Clarification Entry) SEE LABEL COMMENTS DAILY XX ; Start 10/21/18 at 09:00; Stop 10/21/18 at 10:48; Status DC Nitroglycerin (Nitrostat (1/ 150)) 0.4 mg Q5MP PRN SL CHEST PAIN; Start 10/14/18 at 16:30 Pantoprazole Sodium (Protonix) 40 mg BID PO Last administered on 10/22/18at 08:27; Start 10/14/18 at 21:00 Prednisone (Deltasone) 5 mg DAILY PO ; Start 11/02/18 at 09:00 Prednisone (Deltasone) 5 mg DAILY PO ; Start 10/24/18 at 09:00; Stop 10/24/18 at 09:00; Status DC Prednisone (Deltasone) 10 mg DAILY PO ; Start 10/21/18 at 09:00; Stop 10/21/18 at 09:00; Status DC Prednisone (Deltasone) 10 mg DAILY PO ; Start 10/26/18 at 09:00; Stop 11/02/18 at 08:59 Prednisone (Deltasone) 20 mg DAILY PO Last administered on 10/18/18at 09:00; Start 10/18/18 at 09:00; Stop 10/18/18 at 13:45; Status DC Prednisone (Deltasone) 20 mg DAILY PO Last administered on 10/22/18 08:26; Start 10/19/18 at 09:00; Stop 10/26/18 at 08:59 Prednisone (Deltasone) 30 mg DAILY PO Last administered on 10/17/18at 09:27; Start 10/15/18 at 09:00; Stop 10/17/18 at 09:01; Status DC Senna (Senokot) 1 tab QHS PO Last administered on 10/20/18at 22:31; Start 10/14/18 at 21:00 Simethicone (Mylicon) 80 mg Q6HP PRN PO GAS PAIN Last administered on 10/21/18 09:33; Start 10/15/18 at 14:00; Stop 10/22/18 at 10:27; Status DC Simethicone (Mylicon) 80 mg TID PO ; Start 10/22/18 at 10:30 Tiotropium [place] (Spiriva Handihaler) 1 inhalation DAILY@08 INH Last administered on 10/21/18 07:42; Start 10/15/18 at 08:00 A-FIB/CHADSVASC A-FIB History Current/History of A-Fib/PAF?: Yes Current Oral Anticoagulant The: No Age/Risk Factor Scoring CHADSVASC: CHADSVASC Response (Comments) Value Age Risk Factor Age >/= 75 years old 2 Gender Risk Factor Female 1 Hx of CHF Yes 1 Hx of HTN Yes 1 Total 5 MELISA OCHOA MD October 22, 2018 10:46
[2018-10-22 11:24] LABS: BASO % 0.1 % (0.0-1.0); LYMPH # 0.3 10^3/uL (1.5-4.5); LYMPH % 1.1 % (24.0-44.0); MONO % 3.5 % (0.0-5.0); NEUTROPHILS % 94.2 % (36.0-66.0)
[2018-10-22 11:30] LABS: ALBUMIN 2.2 GM/DL (3.2-5.2); ALT/SGPT 35 U/L (12-78); BILIRUBIN,TOTAL 0.5 MG/DL (0.2-1.0); BLOOD UREA NITROGEN 12 MG/DL (7-18); CALCIUM LEVEL 8.1 MG/DL (8.8-10.2); CARBON DIOXIDE LEVEL 38 MEQ/L (21-32); CHLORIDE LEVEL 89 MEQ/L (98-107); CREATININE FOR GFR 0.51 MG/DL (0.55-1.30); GLOMERULAR FILTRATION RATE > 60.0 (>32); GLUCOSE, FASTING 88 MG/DL (70-100); NT-PRO BNP 3764 PG/ML (<450); PHOSPHORUS LEVEL 2.4 MG/DL (2.5-4.9); POTASSIUM SERUM 4.1 MEQ/L (3.5-5.1); SODIUM LEVEL 132 MEQ/L (136-145)
[2018-10-22] MEDS ORDERED: TIOT18INH INH (11:46)
[2018-10-22] MEDS ORDERED: SIME80TA PO (11:46)
[2018-10-22] MEDS ORDERED: NITR4TASL SL (11:46)
[2018-10-22] MEDS ORDERED: SENN18TA PO (11:46)
[2018-10-22] MEDS ORDERED: BISA10SU2 PR (11:46)
[2018-10-22] MEDS ORDERED: CARV12.5 PO (11:46)
[2018-10-22] MEDS ORDERED: PANT40TA3 PO (11:46)
[2018-10-22] MEDS ORDERED: ASPI81CH8 PO (11:46)
[2018-10-22] MEDS ORDERED: ATOR1TAB19 PO (11:46)
[2018-10-22] MEDS ORDERED: PRED5TA PO ×2 (11:46→16:42)
[2018-10-22] MEDS ORDERED: PERF20NE2 INH (11:46)
[2018-10-22] MEDS ORDERED: ACET1TAB55 PO (11:46)
[2018-10-22] MEDS ORDERED: COLA100C5 PO (11:46)
[2018-10-22] MEDS ORDERED: ALPR0.25 PO (11:46)
[2018-10-22] MEDS ORDERED: LEVA12INH INH (11:46)
[2018-10-22] MEDS ORDERED: PRED10TA2 PO ×2 (11:46→16:42)
[2018-10-22] MEDS ORDERED: CAPT31TA PO (11:46)
[2018-10-22] MEDS ORDERED: FURO20TA2 PO (11:46)
[2018-10-22] MEDS ORDERED: PRED20TA PO ×2 (11:46→16:42)
[2018-10-22] MEDS: DOCUSATE SODIUM 100 MG CAP PO SCH (12:00)
[2018-10-22 12:07] LABS: NEUTROPHILS # 27.1 10^3/uL (1.8-7.7)
[2018-10-22 14:00] VITALS: BP 93/47
[2018-10-22 14:10] VITALS: BP 93/47
[2018-10-22 14:38] LABS: ABG BASE EXCESS 9.4 (-2.0-2.0); ABG HCO3 36.6 MEQ/L (22.0-26.0); ABG O2 SATURATION 97.6 % (95.0-99.0); ABG PARTIAL PRESSURE O2 99.3 mmHg (75.0-100.0); ABG STANDARD HCO3 33.2 MEQ/L (22.0-26.0); ABG TOTAL CO2 38.6 MEQ/L (23.0-31.0); ABG pH (ARTERIAL) 7.378 UNITS (7.350-7.450)
[2018-10-22 14:43] LABS: ABG PARTIAL PRESSURE CO2 63.6 mmHg (35.0-45.0)
--- NOTE | 2018-10-22 15:15 | REP ---
HISTORY: Abdominal pain. COMPARISON: Also due to abdominal pain, but after intravenous contrast administration on 10/17/2018, which showed a pelvic mass. The lack of intravenous contrast significantly decreases the sensitivity of the exam. There is no evidence of free intraperitoneal air. There is no evidence of free fluid. Limited evaluation of the solid intraabdominal organs and gallbladder show no gross abnormalities or significant changes from the prior exam. Limited evaluation of the pancreas, adrenal glands and kidneys show no changes from the prior exam. There is heavy calcific atherosclerotic change seen in the abdominal aorta with two separate focal areas of infrarenal abdominal aortic ectasia without aneurysmal dilatation. Heavy calcific atherosclerotic change is seen in the iliac arteries. The bowel loops are seen in a grossly limited fashion but appear essentially unchanged from the prior exam. CT PELVIS: Once again, there is evidence of a pelvic mass abutting nonopacified bowel loops with an estimated overall measurement of approximately 5.8 cm. Certainly, this could include nonopacified adherent bowel, but the lack of oral bowel preparatory contract and intravenous contrast significantly limits the exam in defining the mass boundaries. There is no free pelvic air. There is a trace amount of free pelvic fluid. Bone window technique throughout the exam shows chronic osseous changes with bony demineralization, spinal, hip, and sacroiliac joint degenerative changes. IMPRESSION: 1. Extreme exam limitations as described above. 2. Pelvic mass or uncertain etiology as described above. 3. Other findings as described above. Electronically Signed by Misha Girard DO 10/22/2018 04:39 P
--- NOTE | 2018-10-22 15:56 | REP ---
REASON FOR EXAM: Dyspnea. COMPARISON: 10/17/2018. The lack os intravenous contrast decreases the sensitivity of the exam. There is thyromegaly with nodules and calcifications, left greater than right status quo. Heavy calcific atherosclerotic changes are seen in the thoracic aorta. There is no evidence of mediastinal or hilar adenopathy, although difficult to evaluate without intravenous contrast. There are no pleural or pericardial effusions. Bone window technique throughout the examination shows chronic spinal degenerative changes and bony demineralizations stable. Evaluation of the lung valladares show them to be hyperexpanded with scattered pleural blebs and parenchymal bullus status quo. Scattered nodular and asymmetric parenchymal densities are seen bilaterally. There has been slight improvement in the lung bases, however, there has been an increase in these densities in the upper lobes bilaterally. IMPRESSION: 1. Marked pulmonary parenchymal abnormalities as described. Infectious versus neoplastic correlate clinically with appropriate followup. 2. Other findings and chronic changes as described above. Electronically Signed by Misha Girard DO 10/22/2018 04:39 P
--- NOTE | 2018-10-22 16:20 | ECGEPIP ---
Stationary ECG Study [facility] Test Date: 2018-10-21 Pat Name: JERMAIN SIMPSON Department: Room: [place] [address] Gender: F Meeting Planner: : [id number] Requested By: ANA MARÍA GREENE Order Number: [id number] Reading MD: Mian Carranza Measurements Intervals [place] Rate: 96 P: 57 MD: 161 QRS: 57 QRSD: 70 T: 56 QT: 327 QTc: 415 Interpretive Statements SINUS RHYTHM WITH OCCASIONAL SUPRAVENTRICULAR PREMATURE COMPLEXES Electronically Signed On 10-22-2018 16:20:38 EDT by Mian Carranza
[2018-10-22] MEDS ORDERED: METO1TAB32 PO (16:42)
[2018-10-23] MEDS ORDERED: METOPROLOL SUCC *XL* 25MG TAB (TopROL *XL*) PO SCH (09:00)
[2018-10-24] MEDS ORDERED: predniSONE 5 MG TAB PO SCH (09:00)
[2018-10-26] MEDS ORDERED: predniSONE 10 MG TAB PO SCH (09:00)
--- NOTE | 2018-10-27 16:54 | PMRDS ---
DATE OF ADMISSION: 10/14/2018 DATE OF DISCHARGE: 10/22/2018 CHIEF COMPLAINT/DISCHARGE DIAGNOSIS: [id number] myocardial infarction (NSTEMI) and pneumonia with chronic obstructive pulmonary disease (COPD) exacerbation. HISTORY OF PRESENT ILLNESS: This is an 83-year-old female with a past medical history of chronic obstructive pulmonary disease (COPD) on 2 liters oxygen at home, hypertension, hyperlipidemia, who initially presented to [facility] with one week of cough and worsening dyspnea, was placed on antibiotics and nebulizer treatments without resolution of her symptoms, were she was placed on bilevel positive airway pressure (BiPAP) and transferred to [facility] emergency department (ED) 10/08/2018. On arrival, chest x-ray showed "Bilateral lower lobe infiltrates consistent with pneumonia." A nasal swab was positive for parainfluenza. She was admitted for acute hypoxic and hypercapnia with respiratory failure and started on intravenous (IV) Solu-Medrol and continued on BiPAP. She was found to have elevated cardiac markers and EKG findings without ST elevations, for which she was placed on Lovenox for [id number] myocardial infarction (NSTEMI) treatment. Echocardiogram on showed "Normal left ventricular size, wall thickness and hyperkinetic wall motion. Normal left atrial size. Unable to assess left ventricular diastolic function in light of atrial fibrillation but estimated mean left arterial pressure was within normal limits." Pulmonology was consulted and it was recommended to continue meropenem and azithromycin and to wean off of systemic corticosteroids. She was evaluated by therapy and found to have deficit deficiencies in gait and activities of daily living (ADLs) compared her prior level of function and deemed medically appropriate for discharge to acute rehabilitation unit (ARU) on 10/14/2018. PAST MEDICAL HISTORY: As per history of present illness (HPI). HOSPITAL COURSE: The patient was admitted and enrolled on a comprehensive physical therapy (PT)/occupational therapy (OT) program. The patient was initially continued on aspirin, Plavix and Lovenox; however, was found to have blood in her stool with drop in hemoglobin and hematocrit, for which a gastroenterology (GI) consult was placed and she was prepped for colonoscopy, which for which was performed on 10/21/2018. She was restarted on Lasix, which was initially held prior to her admission to ARU and was maintained on a steroid taper while receiving oral azithromycin. Her Lovenox and Plavix were held in preparation for her colonoscopy and operation note on 10/21/2018 reported a 110 mm polyp at the appendiceal orifice and 20 mm polyp in the mid sigmoid colon, moderate diverticulosis in the sigmoid colon, significant spasms, internal hemorrhoids. The day after her colonoscopy, patient reported worsening shortness of breath, abdominal distension and overall fatigue and was deemed medically inappropriate for continued ARU level of care and was transferred off the floor for acute care monitoring and suspicion for persistent pneumonia. DISCHARGE MEDICATIONS: - alprazolam 0.125 mcg by mouth three times a day - aspirin 81 daily - atorvastatin 10 by mouth nightly - captopril 3.125 by mouth twice a day - carvedilol 25 by mouth twice a day - Colace 100 by mouth twice a day - formoterol fumarate 20 mcg inhalation twice a day - Lasix 20 daily - levalbuterol 1.25 mcg nebulizer every 4 hours - nitroglycerin - Protonix 40 twice a day - senna - simethicone 88 three times a day - Spiriva FUNCTIONAL HISTORY: Upon discharge to acute care setting, patient had had two days of medical hold for overall weakness and inability to complete therapy.
[2018-11-02] MEDS ORDERED: predniSONE 5 MG TAB PO SCH (09:00)
== END 2018-10-22 16:00 | disposition short-term general hospital (02) | DRG 91 ==
LOC: M PM&R 16:45
PROVIDERS: ADMIT Physical Medicine & Rehabilitation; ATTEND Physical Medicine & Rehabilitation
PROC: 0DBN8ZX Excision of Sigmoid Colon, Via Natural or Artificial Opening Endoscopic, Diagnostic (ICD-10-PCS; principal; 2018-10-21)
PROC: 0W3P8ZZ Control Bleeding in Gastrointestinal Tract, Via Natural or Artificial Opening Endoscopic (ICD-10-PCS; 2018-10-21)
DX: R26.89 Other abnormalities of gait and mobility (principal); I21.4 Non-ST elevation (NSTEMI) myocardial infarction; J18.9 Pneumonia, unspecified organism; K92.2 Gastrointestinal hemorrhage, unspecified; J44.1 Chronic obstructive pulmonary disease with (acute) exacerbation; I48.0 Paroxysmal atrial fibrillation; Z79.01 Long term (current) use of anticoagulants; Z66 Do not resuscitate; D72.829 Elevated white blood cell count, unspecified; I10 Essential (primary) hypertension; I27.20 Pulmonary hypertension, unspecified; Z87.891 Personal history of nicotine dependence; E78.5 Hyperlipidemia, unspecified; K57.30 Diverticulosis of large intestine without perforation or abscess without bleeding; Z79.899 Other long term (current) drug therapy; Z88.0 Allergy status to penicillin; Z88.8 Allergy status to other drugs, medicaments and biological substances; Z85.3 Personal history of malignant neoplasm of breast; R10.9 Unspecified abdominal pain; R00.0 Tachycardia, unspecified; D12.5 Benign neoplasm of sigmoid colon

== ENCOUNTER 2018-10-22 13:41 | Inpatient (IN) | payer MEDICARE ==
[~2018-10-22] VITALS: Ht 157.5 cm; Wt 53.5 kg
[~2018-10-22 13:41] MED LIST changes: +ACET1TAB55 PO; +ALPR0.25 PO; +BISA10SU2 PR; +CAPT31TA PO; +COLA100C5 PO; +LOSA100T50 PO; +MOBI4TAB PO; +NITR4TASL SL; +PANT40TA3 PO; +PRED20TA PO; +SENN18TA PO; +SIME80TA PO
[2018-10-22] MEDS ORDERED: FUROSEMIDE 20 MG/2 ML VIAL (J1940) IV ONE (15:30)
[2018-10-22 16:04] VITALS: BP 119/57
[2018-10-22] MEDS ORDERED: PRED20TA PO (16:42)
[2018-10-22] MEDS ORDERED: METO1TAB32 PO (16:42)
[2018-10-22] MEDS ORDERED: PRED5TA PO (16:42)
[2018-10-22] MEDS ORDERED: PRED10TA2 PO (16:42)
[2018-10-22] MEDS ORDERED: FUROSEMIDE 40 MG/4 ML VIAL (J1940) IV ONE (17:15)
[2018-10-22] MEDS ORDERED: NITROGLYCERIN 0.4 MG SUBL TABLET SL PRN (17:15)
[2018-10-22] MEDS ORDERED: IPRATROPIUM 0.5MG/ALBUTEROL 2.5MG INH SOL UD 3ML (DUONEB)(J7620) INH PRN (17:15)
[2018-10-22] MEDS ORDERED: FLUTICASONE PROP 0.05% NASAL SPRAY 16 GM (FLONASE) PRN (17:15)
[2018-10-22 18:00] VITALS: O2SAT 94
--- NOTE | 2018-10-22 18:13 | HPEPDOC ---
General Date of Admission October 22, 2018 at 15:55 Attending Physician: NYDIA SOLIS MD Chief Complaint The patient is a 83-year-old female admitted with a reason for visit of acute COPD exacerbation, acute diastolic heart failure, acute on chronic hypercapneic respiratory failure Source: RN/, Old records Exam Limitations: Clinical conditions Timing/Duration: Getting worse Severity: Severe Associated Symptoms: Cough, Malaise, Shortness of breath, Weakness History of Present Illness Patient is an 83-year-old female, past medical history significant for COPD on continuous oxygen therapy at home, presenting to the hospital initially on account of worsening shortness of breath and pneumonia. Evaluation by imaging study and clinical exam revealed infiltrates suggestive of pneumonia. Prior to hospitalization, patient had been on antibiotic therapy with doxycycline and had failed outpatient therapy. She was treated with a full course of meropenem and azithromycin. Subsequently, patient was discharged to acute rehabilitation unit for rehabilitation. She had a colonoscopy yesterday which was completed on account of GI bleed, which was also noted on previous admission. On return from colonoscopy. She was noted to be in markedly worsened shortness of breath with accessory muscle use noted. Reevaluation at bedside revealed also crackling in all lung valladares, accessory muscle use, tachycardia and tachypnea. Oxygen requirement also was increased, requiring up to 5 L to maintain saturation greater than 90%. Patient was treated with a stat dose of Lasix and Wood catheter was placed. Within 2 hours, output was greater than 2000 mL. This morning, however on reevaluation respiratory status was still not markedly improved. Laboratory data repeated showed a white blood count of 29. Given the clinical decline and symptoms, the decision was made to transfer her out of rehabilitation unit for further evaluation and treatment of worsening COPD exacerbation Home Medications Scheduled Alprazolam (Alprazolam) 0.25 Mg Tablet, 0.125 MG PO TID Aspirin (Children's Aspirin) 81 Mg Tab.chew, 81 MG PO DAILY Atorvastatin Calcium (Atorvastatin Calcium) 10 Mg Tablet, 10 MG PO QHS Budesonide/Formoterol (Symbicort 160-4.5 Mcg Inhaler) 6 Gm Hfa.aer.ad, 2 PUFF INH BID, (Reported) Captopril (Captopril) 12.5 Mg Tablet, 3.125 MG PO BID Carvedilol (Carvedilol) 12.5 Mg Tablet, 25 MG PO BID Docusate Sodium (Colace) 100 Mg Capsule, 100 MG PO BID Ferrous Sulfate (Ferrous Sulfate) 325 Mg Tablet, 325 MG PO DAILY, (Reported) Formoterol Fumarate (Perforomist) 20 Mcg/2 Ml Vial.neb, 20 MCG INH RBID Furosemide (Furosemide) 20 Mg Tablet, 20 MG PO DAILY Levalbuterol Hydrochloride (Xopenex Concentrate) 1.25 Mg/0.5 Ml Vial.neb, 1.25 MG INH RQ4H Loratadine (Claritin) 10 Mg Capsule, 10 MG PO DAILY, (Reported) Metoprolol Succinate (Metoprolol Succinate) 25 Mg Tab.er.24h, 25 MG PO DAILY, (Reported) NEW MED Pantoprazole Sodium (Pantoprazole Sodium) 40 Mg Tablet.dr, 40 MG PO BID Prednisone (Prednisone) 20 Mg Tablet, 20 MG PO DAILY, (Reported) START 10/19-10/26 Prednisone (Prednisone) 10 Mg Tablet, 10 MG PO DAILY, (Reported) START 10/26-11/02 Prednisone (Prednisone) 5 Mg Tablet, 5 MG PO DAILY, (Reported) START 11/02 Senna (Senna Lax) 8.6 Mg Tablet, 1 TAB PO QHS Simethicone (Simethicone) 80 Mg Tab.chew, 80 MG PO TID Tiotropium [place] Monohydrate (Spiriva) 18 Mcg Cap.w.dev, 1 INHALATION INH DAILY@08 Scheduled PRN Acetaminophen (Acetaminophen) 325 Mg Tablet, 650 MG PO Q4HP PRN for fever/MILD PAIN (PS 1-4) Bisacodyl (Bisacodyl) 10 Mg Supp.rect, 10 MG SD DAILYPRN PRN for CONSTIPATION Fluticasone Propionate (Flonase Allergy Relief) 9.9 Ml [place].susp, 2 SPRAY NA DAILY PRN for ALLERGIES, (Reported) Ipratropium/Albuterol Sulfate (Combivent Respimat 20-100 Mcg) 4 Gm Mist.inhal, 1 PUFF INH QID PRN for SHORTNESS OF BREATH, (Reported) Nitroglycerin (Nitrostat) 0.4 Mg Tab.subl, 0.4 MG SL Q5MP PRN for CHEST PAIN Allergies Coded Allergies: alendronate sodium (Unverified Allergy, Unknown, 10/08/18) amoxicillin (Unverified Allergy, Unknown, 10/08/18) atorvastatin (Unverified Allergy, Unknown, 10/08/18) ibandronate sodium (Unverified Allergy, Unknown, 10/08/18) levofloxacin (Unverified Allergy, Unknown, 10/08/18) quinine (Unverified Allergy, Unknown, 10/08/18) risedronate sodium (Unverified Allergy, Unknown, 10/08/18) Past Medical History Medical History Chronic obstructive pulmonary disease Paroxysmal atrial fibrillation Non-ST elevation myocardial infarction Hypertension Nicotine dependence, quit 20 years ago Family History Parkinson's disease Cardiovascular disease Social History Alcohol: Denies Drugs: denies A-FIB/CHADSVASC A-FIB History Current/History of A-Fib/PAF?: Yes Current Oral Anticoagulant The: No Age/Risk Factor Scoring CHADSVASC: CHADSVASC Response (Comments) Value Age Risk Factor Age >/= 75 years old 2 Total 2 Treatment Reason Anticoagulant not given: Current bleeding Review of Systems Other systems Limited review of systems completed due to patient's clinical state Physical Examination Other physical findings General: NAD. Skin: Warm, dry, intact. Cardiovascular: Regular rate and rhythm, no MRG, + jugular venous distention, BLE edema. Respiratory:Coarse inspiratory rales and crackling in all lung valladares with acc musc use noted. Non productive cough, Abdomen: Bowel sounds +, no tenderness, no distention Musculoskeletal: No joint deformities, Neurologic: CN 2-12 grossly intact, alert and oriented 3 Psychiatric: Appropriate mood and affect, no anxiety or agitation. Vital Signs Vital Signs Date Time Temp Pulse Resp B/P (MAP) Pulse Ox O2 Delivery O2 Flow Rate FiO2 10/22/18 16:04 97.5 91 18 119/57 (77) 96 2.0 Laboratory Data Microbiology Microbiology 10/22/18 Respiratory Virus Panel (PCR) (MAY), Received Pending Assessment/Plan Acute hypercapnic respiratory failure -Multifactorial etiology -Worsening respiratory indices, but compensated. -Patient is DNR/DNI Aspiration pneumonia -Antibiotic therapy with meropenem -respiratory support with scheduled bronchodilator therapy -Monitoring of oxygen saturation to keep greater than 92% during acute phase of illness Metabolic encephalopathy -Due. to acute illness and hypoxia -Respiratory support -Treatment of underlying process Acute diastolic heart failure -Strict fluid restriction 1200 mL a day -Aggressive diuresis with Wood catheter for accurate intake and output measurement -Monitoring of electrolytes to keep potassium greater than 4, magnesium greater than 2 Acute bronchitis -Continued on steroid therapy -Antibiotic therapy -Scheduled bronchodilator therapy with monitoring of oxygen level GI prophylaxis -Proton pump inhibitor DVT prophylaxis -Continue LYNDSEY stockings, given recent GI bleed Plan / VTE VTE Prophylaxis Ordered?: Yes Plan / Urinary Catheter Reason for insertion/continuin: Critical Pt monitoring SHILPA COLEMAN October 22, 2018 18:13
[2018-10-22] MEDS: MEROPENEM INJ 1 GM in APPROPRIATE DILUENT 1 EA IV SCH (18:26)
[2018-10-22] MEDS: FORMOTEROL FUMARATE 20 MCG/2 ML INHALATION SOLUTION (PERFOROMIST) INH SCH (19:55)
[2018-10-22] MEDS: LEVALBUTEROL 1.25 MG/0.5 ML CONCENTRATE NEB INH SCH ×2 (19:55→23:32)
[2018-10-22] MEDS: SYMBICORT 160/4.5MCG INHALER 6GM INH SCH (19:56)
[2018-10-22 20:00] VITALS: BP 111/56
[2018-10-22] MEDS: CARVedilol 12.5 MG TAB PO SCH (21:12)
[2018-10-22] MEDS: CAPTOpril 3.125 MG PER 1/4 TABLET PO SCH (21:12)
[2018-10-22] MEDS: PANTOPRAZOLE 40MG TAB (PROTONIX) PO SCH (21:12)
[2018-10-22] MEDS: DOCUSATE SODIUM 100 MG CAP PO SCH (21:13)
[2018-10-22] MEDS: SIMETHICONE 80 MG CHEW TAB PO SCH (21:14)
[2018-10-22] MEDS: ATORVASTATIN 10 MG TAB PO SCH (21:15)
[2018-10-23] VITALS (7 sets, daily range): BP systolic 102–160; BP diastolic 48–74
[2018-10-23] MEDS: MEROPENEM INJ 1 GM in APPROPRIATE DILUENT 1 EA IV SCH ×3 (01:29→17:33)
[2018-10-23] MEDS: LEVALBUTEROL 1.25 MG/0.5 ML CONCENTRATE NEB INH SCH ×5 (03:40→19:56)
[2018-10-23] MEDS: ACETAMINOPHEN 325 MG TAB PO PRN (05:25)
[2018-10-23 06:08] LABS: BASO % 0.1 % (0.0-1.0); EOS % 0.1 % (0.0-3.0); HEMATOCRIT 28.9 % (36.0-47.0); HEMOGLOBIN 9.1 g/dl (12.0-15.5); LYMPH # 0.6 10^3/uL (1.5-4.5); LYMPH % 2.1 % (24.0-44.0); MEAN CORPUSCULAR HEMOGLOBIN 29.7 pg (27.0-33.0); MEAN CORPUSCULAR HGB CONC 31.5 g/dl (32.0-36.5); MEAN CORPUSCULAR VOLUME 94.4 fl (80.0-96.0); MONO # 1.2 10^3/uL (0.0-0.8); MONO % 4.3 % (0.0-5.0); NEUTROPHILS % 92.6 % (36.0-66.0); PLATELET COUNT, AUTOMATED 445 10^3/uL (150-450); RED BLOOD COUNT 3.06 10^6/uL (4.00-5.40); WHITE BLOOD COUNT 28.4 10^3/uL (4.0-10.0)
[2018-10-23 06:33] LABS: BLOOD UREA NITROGEN 13 MG/DL (7-18); CALCIUM LEVEL 8.2 MG/DL (8.8-10.2); CARBON DIOXIDE LEVEL 40 MEQ/L (21-32); CHLORIDE LEVEL 86 MEQ/L (98-107); CREATININE FOR GFR 0.51 MG/DL (0.55-1.30); GLOMERULAR FILTRATION RATE > 60.0 (>32); GLUCOSE, FASTING 83 MG/DL (70-100); POTASSIUM SERUM 3.8 MEQ/L (3.5-5.1); SODIUM LEVEL 129 MEQ/L (136-145)
[2018-10-23 07:37] LABS: NEUTROPHILS # 26.3 10^3/uL (1.8-7.7)
[2018-10-23] MEDS: TIOTROPIUM INHALER/CAPSULE (SPIRIVA) INH SCH (07:42)
[2018-10-23] MEDS: FORMOTEROL FUMARATE 20 MCG/2 ML INHALATION SOLUTION (PERFOROMIST) INH SCH ×2 (07:42→19:56)
[2018-10-23] MEDS: SYMBICORT 160/4.5MCG INHALER 6GM INH SCH ×2 (07:42→19:57)
[2018-10-23] MEDS: FERROUS SULFATE 325MG TAB PO SCH (08:38)
[2018-10-23] MEDS: LORATADINE 10 MG TAB PO SCH (08:38)
[2018-10-23] MEDS: SIMETHICONE 80 MG CHEW TAB PO SCH ×3 (08:38→21:23)
[2018-10-23] MEDS: predniSONE 20 MG TAB PO SCH (08:38)
[2018-10-23] MEDS: PANTOPRAZOLE 40MG TAB (PROTONIX) PO SCH ×2 (08:38→21:22)
[2018-10-23] MEDS: CAPTOpril 3.125 MG PER 1/4 TABLET PO SCH ×2 (08:38→21:22)
[2018-10-23] MEDS: CARVedilol 12.5 MG TAB PO SCH ×2 (08:38→21:23)
[2018-10-23] MEDS: DOCUSATE SODIUM 100 MG CAP PO SCH ×2 (08:39→21:23)
--- NOTE | 2018-10-23 09:31 | IPNPDOC ---
Text Note Date of Service The patient was seen on 10/23/18. NOTE Subjective: Patient seen and examined at bedside. Feels better today. Complains of abdominal pain, relieved with flatulence. Denies chest pain, shortness of breath, headaches. Objective: General: NAD, sitting comfortably in chair HEENT: NC/AT, nasal cannula in place Heart: +S1S2, RRR Abd: soft, NT, ND, +BS ASSESSMENT AND PLAN: 83 yo female transferred from [facility] for hypercapnic respiratory failure, resolved with NIPPV, complicated with NSTEMI, treated with medical management. Transferred to ARU for rehab, further complicated with acute GI bleed. Transferred back to medical floor for lethargy, respiratory distress. #respiratory distress - today appears to have returned to her baseline - saturating well on 2 L nasal cannula - possibly secondary to aspiration pneumonia +/- fluid overload - receiving IV meropenem - SCx pending #metabolic encephalopathy - appears to be back to baseline mentation - possible secondary to acute illness and/or hypercapnia #Acute GI bleed - has remained stable - no acute bleeding - GI c/s appreciated - previously discussed with Dr. Norton - plavix has been on hold since 10/16/18 # Abdominal pain - s/p colonoscopy - pelvic mass - US pelvis pending report #End stage COPD as per records - grossly at baseline oxygen requirements - d/w pulmonology - assistance appreciated - titrate O2 88-92%, wean steroids, respiratory treatments # Parenchymal nodules. - Multiple parenchymal nodules noted on CT chest on 10/17/18. Neoplasm can not be excluded - could consider bx as outpatient #NSTEMI - medical management - Plavix on hold due to GI bleed. Continue on statin, on carvedilol. # History of parainfluenza infection/HCAP # Pulmonary hypertension, on diuretic. #HTN - on diuretic, on captopril and carvedilol. #DVT prophylaxis, - mechanical prophylaxis Dispo: IV abx - SCx pending; d/c mt - [facility] A-FIB/CHADSVASC A-FIB History Current/History of A-Fib/PAF?: Yes Current Oral Anticoagulant The: No Age/Risk Factor Scoring CHADSVASC: CHADSVASC Response (Comments) Value Age Risk Factor Age >/= 75 years old 2 Gender Risk Factor Female 1 Hx of CHF Yes 1 Hx of HTN Yes 1 Hx of Diabetes No 0 Total 5 Treatment Treatment ordered: Holding Other Reason Anticoagulant not given: Current bleeding VS,Fishbone, I+O VS, Fishbone, I+O Laboratory Tests 10/23/18 05:44 Red Blood Count 3.06 L, Mean Corpuscular Volume 94.4, Mean Corpuscular Hemoglobin 29.7, Mean Corpuscular Hemoglobin Concent 31.5 L, Red Cell Distribution Width 12.6, Neutrophils (%) (Auto) 92.6 H, Lymphocytes (%) (Auto) 2.1 L, Monocytes (%) (Auto) 4.3, Eosinophils (%) (Auto) 0.1, Basophils (%) (Auto) 0.1, Neutrophils # (Auto) 26.3 H, Lymphocytes # (Auto) 0.6 L, Monocytes # (Auto) 1.2 H, Eosinophils # (Auto) 0.0, Basophils # (Auto) 0.0, Calcium Level 8.2 L Vital Signs Date Time Temp Pulse Resp B/P (MAP) Pulse Ox O2 Delivery O2 Flow Rate FiO2 10/23/18 08:38 97 114/59 10/23/18 08:00 98.4 18 98 2.0 10/22/18 18:00 Nasal Cannula I&O- Last 24 Hours up to 6 AM 10/23/18 06:00 Intake Total 700 ml Output Total 1100 ml Balance -400 ml NYDIA SOLIS MD October 23, 2018 09:31
--- NOTE | 2018-10-23 10:16 | REP ---
PELVIC ULTRASOUND: Real-time sonographic evaluation of the pelvis performed and correlated with CT scan of same day as well as 10/17/2018. Bladder is not distended with a Wood catheter in place. Uterus measures 10.1 x 6.4 x 7.6 cm. Endometrium could not be visualized. Ovaries are not visualized. The pelvic mass seen on the CT scan is not visualized sonographically. Patient declined endovaginal exam. IMPRESSION: Extremely limited transabdominal pelvic ultrasound. Uterus is vaguely visualized. Ovaries could not identified. The left pelvic mass could not be identified. Electronically Signed by Tal Espana MD 10/23/2018 03:13 P
--- NOTE | 2018-10-23 10:20 | REP ---
THYROID ULTRASOUND: Real-time sonographic evaluation of the thyroid performed. Right lobe of thyroid measures 2.6 x 1.5 x 1.2 cm and left lobe 4.9 x 2.0 x 2.6 cm. There is a nodule in the right lobe measuring 1.0 x 1.2 x 0.9 cm which is solid in nature. Diffuse nodular contour of the left lobe is noted with a large solid mass seen extending into the superior mediastinum, the left lobe is essentially replaced by this mass. IMPRESSION: Solid nodule right lobe 1.2 cm in maximum diameter. Left lobe is essentially replaced by a large mass containing multiple calcifications, extending into the left superior mediastinum with that abnormal left lobe measuring 4.9 x 2.0 x 2.6 cm. Electronically Signed by Tal Espana MD 10/23/2018 03:13 P
[2018-10-23] MEDS: ATORVASTATIN 10 MG TAB PO SCH (21:00)
[2018-10-24] MEDS: LEVALBUTEROL 1.25 MG/0.5 ML CONCENTRATE NEB INH SCH ×7 (00:45→23:23)
[2018-10-24] MEDS: MEROPENEM INJ 1 GM in APPROPRIATE DILUENT 1 EA IV SCH ×3 (01:27→17:45)
[2018-10-24 04:00] VITALS: BP 144/60
[2018-10-24 05:22] LABS: BASO % 0.1 % (0.0-1.0); EOS # 0.1 10^3/uL (0.0-0.50); EOS % 0.2 % (0.0-3.0); HEMATOCRIT 27.4 % (36.0-47.0); HEMOGLOBIN 8.7 g/dl (12.0-15.5); LYMPH # 0.5 10^3/uL (1.5-4.5); LYMPH % 2.2 % (24.0-44.0); MEAN CORPUSCULAR HEMOGLOBIN 29.5 pg (27.0-33.0); MEAN CORPUSCULAR HGB CONC 31.8 g/dl (32.0-36.5); MEAN CORPUSCULAR VOLUME 92.9 fl (80.0-96.0); MONO # 1.1 10^3/uL (0.0-0.8); MONO % 4.9 % (0.0-5.0); NEUTROPHILS % 91.7 % (36.0-66.0); PLATELET COUNT, AUTOMATED 460 10^3/uL (150-450); RED BLOOD COUNT 2.95 10^6/uL (4.00-5.40); WHITE BLOOD COUNT 22.9 10^3/uL (4.0-10.0)
[2018-10-24 05:44] LABS: BLOOD UREA NITROGEN 12 MG/DL (7-18); CALCIUM LEVEL 7.8 MG/DL (8.8-10.2); CARBON DIOXIDE LEVEL 39 MEQ/L (21-32); CHLORIDE LEVEL 86 MEQ/L (98-107); CREATININE FOR GFR 0.47 MG/DL (0.55-1.30); GLOMERULAR FILTRATION RATE > 60.0 (>32); GLUCOSE, FASTING 76 MG/DL (70-100); POTASSIUM SERUM 3.6 MEQ/L (3.5-5.1); SODIUM LEVEL 130 MEQ/L (136-145)
[2018-10-24] MEDS: ACETAMINOPHEN 325 MG TAB PO PRN (05:58)
[2018-10-24 07:23] LABS: FREE THYROXINE INDEX 3.7 % (1.3-4.8); T UPTAKE 41 % (30-39); THYROID STIMULATING HORMONE 0.279 uIU/ML (0.358-3.740); THYROXINE (T4) 9.1 UG/DL (4.5-12.0)
[2018-10-24] MEDS: SYMBICORT 160/4.5MCG INHALER 6GM INH SCH ×2 (07:31→19:08)
[2018-10-24] MEDS: FORMOTEROL FUMARATE 20 MCG/2 ML INHALATION SOLUTION (PERFOROMIST) INH SCH ×2 (07:31→19:08)
[2018-10-24] MEDS: TIOTROPIUM INHALER/CAPSULE (SPIRIVA) INH SCH (07:31)
[2018-10-24 08:00] VITALS: BP 148/72
[2018-10-24] MEDS: PANTOPRAZOLE 40MG TAB (PROTONIX) PO SCH ×2 (08:17→20:42)
[2018-10-24] MEDS: DOCUSATE SODIUM 100 MG CAP PO SCH ×2 (08:17→20:42)
[2018-10-24] MEDS: FERROUS SULFATE 325MG TAB PO SCH (08:17)
[2018-10-24] MEDS: predniSONE 20 MG TAB PO SCH (08:17)
[2018-10-24] MEDS: LORATADINE 10 MG TAB PO SCH (08:18)
[2018-10-24] MEDS: CARVedilol 12.5 MG TAB PO SCH ×2 (08:18→20:42)
[2018-10-24] MEDS: SIMETHICONE 80 MG CHEW TAB PO SCH ×3 (08:18→20:42)
[2018-10-24] MEDS: CAPTOpril 3.125 MG PER 1/4 TABLET PO SCH ×2 (08:18→20:42)
[2018-10-24] MEDS: FLUCONAZOLE 100 MG TAB PO SCH (09:28)
--- NOTE | 2018-10-24 09:28 | IPNPDOC ---
Text Note Date of Service The patient was seen on 10/24/18. NOTE Subjective: Patient seen and examined at bedside. Feels better today. Low urine output noted overnight. Denies chest pain, shortness of breath, headaches. Objective: General: NAD, sitting comfortably in chair, elderly HEENT: NC/AT, nasal cannula in place Heart: +S1S2, RRR Abd: soft, NT, ND, +BS Ext: peripheral edema ASSESSMENT AND PLAN: 83 yo female transferred from [facility] for hypercapnic respiratory failure, resolved with NIPPV, complicated with NSTEMI, treated with medical management. Transferred to ARU for rehab, further complicated with acute GI bleed. Transferred back to medical floor for lethargy, respiratory distress. #respiratory distress - today appears to have returned to her baseline - saturating well on 2 L nasal cannula - possibly secondary to aspiration pneumonia +/- fluid overload - receiving IV meropenem - SCx pending #metabolic encephalopathy - resolved - back to baseline mentation - possible secondary to acute illness and/or hypercapnia #Acute GI bleed - has remained stable - no acute bleeding - GI c/s appreciated - previously discussed with Dr. Norton - plavix has been on hold since 10/16/18 # Abdominal pain - s/p colonoscopy - pelvic mass - US pelvis pending report #End stage COPD as per records - grossly at baseline oxygen requirements - d/w pulmonology - assistance appreciated - titrate O2 88-92%, wean steroids, respiratory treatments # Parenchymal nodules. - Multiple parenchymal nodules noted on CT chest on 10/17/18. Neoplasm can not be excluded - could consider bx as outpatient #NSTEMI - medical management - Plavix on hold due to GI bleed. Continue on statin, on carvedilol. # History of parainfluenza infection/HCAP # Pulmonary hypertension, on diuretic. #HTN - on diuretic, on captopril and carvedilol. #DVT prophylaxis, - mechanical prophylaxis Dispo: IV abx - SCx pending; straight cath/bladder scan VS,Fishbone, I+O VS, Fishbone, I+O Laboratory Tests 10/24/18 04:10 Red Blood Count 2.95 L, Mean Corpuscular Volume 92.9, Mean Corpuscular Hemoglobi n 29.5, Mean Corpuscular Hemoglobin Concent 31.8 L, Red Cell Distribution Width 12.6, Neutrophils (%) (Auto) 91.7 H, Lymphocytes (%) (Auto) 2.2 L, Monocytes (%) (Auto) 4.9, Eosinophils (%) (Auto) 0.2, Basophils (%) (Auto) 0.1, Neutrophils # (Auto) 21.0 H, Lymphocytes # (Auto) 0.5 L, Monocytes # (Auto) 1.1 H, Eosinophils # (Auto) 0.1, Basophils # (Auto) 0.0, Calcium Level 7.8 L Vital Signs Date Time Temp Pulse Resp B/P (MAP) Pulse Ox O2 Delivery O2 Flow Rate FiO2 10/24/18 08:18 91 144/60 10/24/18 08:00 100.5 20 98 2.0 10/22/18 18:00 Nasal Cannula I&O- Last 24 Hours up to 6 AM 10/24/18 06:00 Intake Total 1600 ml Output Total 945 ml Balance 655 ml NYDIA SOLIS MD October 24, 2018 09:28
[2018-10-24] MEDS ORDERED: FUROSEMIDE 20 MG/2 ML VIAL (J1940) IV ONE (09:30)
[2018-10-24 12:00] VITALS: BP 115/65
[2018-10-24 16:00] VITALS: BP 149/77
[2018-10-24 20:00] VITALS: BP 138/74
[2018-10-24] MEDS: ATORVASTATIN 10 MG TAB PO SCH (20:42)
[2018-10-25] MEDS: MEROPENEM INJ 1 GM in APPROPRIATE DILUENT 1 EA IV SCH ×3 (01:28→17:10)
[2018-10-25] MEDS: LEVALBUTEROL 1.25 MG/0.5 ML CONCENTRATE NEB INH SCH ×5 (03:13→20:00)
[2018-10-25] MEDS: ACETAMINOPHEN 325 MG TAB PO PRN ×2 (03:47→13:24)
[2018-10-25 04:00] VITALS: BP 128/70
[2018-10-25 05:08] LABS: BASO % 0.1 % (0.0-1.0); EOS # 0.1 10^3/uL (0.0-0.50); EOS % 0.3 % (0.0-3.0); HEMATOCRIT 27.6 % (36.0-47.0); HEMOGLOBIN 8.8 g/dl (12.0-15.5); LYMPH # 0.6 10^3/uL (1.5-4.5); LYMPH % 3.2 % (24.0-44.0); MEAN CORPUSCULAR HGB CONC 31.9 g/dl (32.0-36.5); MEAN CORPUSCULAR VOLUME 94.2 fl (80.0-96.0); MONO # 1.2 10^3/uL (0.0-0.8); NEUTROPHILS # 17.2 10^3/uL (1.8-7.7); NEUTROPHILS % 89.9 % (36.0-66.0); PLATELET COUNT, AUTOMATED 442 10^3/uL (150-450); RED BLOOD COUNT 2.93 10^6/uL (4.00-5.40); WHITE BLOOD COUNT 19.1 10^3/uL (4.0-10.0)
[2018-10-25 05:22] LABS: BLOOD UREA NITROGEN 12 MG/DL (7-18); CALCIUM LEVEL 8.4 MG/DL (8.8-10.2); CARBON DIOXIDE LEVEL 41 MEQ/L (21-32); CHLORIDE LEVEL 89 MEQ/L (98-107); CREATININE FOR GFR 0.52 MG/DL (0.55-1.30); GLOMERULAR FILTRATION RATE > 60.0 (>32); GLUCOSE, FASTING 83 MG/DL (70-100); POTASSIUM SERUM 3.5 MEQ/L (3.5-5.1); SODIUM LEVEL 133 MEQ/L (136-145)
[2018-10-25 07:09] VITALS: BP 140/70
[2018-10-25 07:30] LABS: NT-PRO BNP 3202 PG/ML (<450)
[2018-10-25] MEDS: SYMBICORT 160/4.5MCG INHALER 6GM INH SCH ×2 (08:07→21:41)
[2018-10-25] MEDS: FORMOTEROL FUMARATE 20 MCG/2 ML INHALATION SOLUTION (PERFOROMIST) INH SCH ×2 (08:07→21:42)
[2018-10-25] MEDS: TIOTROPIUM INHALER/CAPSULE (SPIRIVA) INH SCH (08:07)
--- NOTE | 2018-10-25 08:09 | IPNPDOC ---
Text Note Date of Service The patient was seen on 10/25/18. NOTE Subjective: Patient seen and examined at bedside. Continues to feel better. No new medical complaints today, but does state she is constipated. Denies chest pain, shortness of breath, abdominal pain, headaches. Objective: General: NAD, sitting comfortably at edge of bed, elderly HEENT: NC/AT, nasal cannula in place Heart: +S1S2, RRR Abd: soft, NT, ND, +BS Ext: peripheral edema ASSESSMENT AND PLAN: 83 yo female transferred from [facility] for hypercapnic respiratory failure, resolved with NIPPV, complicated with NSTEMI, treated with medical management. Transferred to ARU for rehab, further complicated with acute GI bleed. Transferred back to medical floor for lethargy, respiratory distress. #respiratory distress - at baseline - saturating well on 2 L nasal cannula - possibly secondary to aspiration pneumonia complicated with acute/chronic HFpEF - receiving IV meropenem - SCx +yeast - diflucan - further complicated with chronic hypoxic respiratory failure in the setting of end stage COPD #metabolic encephalopathy - resolved - back to baseline mentation - possible secondary to acute illness and/or hypercapnia #Acute GI bleed - has remained stable - no acute bleeding - GI c/s appreciated - previously discussed with Dr. Norton - plavix has been on hold since 10/16/18 # Abdominal pain - s/p colonoscopy - pelvic mass - US pelvis unrevealing - poor study #End stage COPD as per records - at baseline oxygen requirements - d/w pulmonology - assistance appreciated - titrate O2 88-92%, wean steroids, respiratory treatments - chronic hypoxic respiratory failure in the setting of end stage COPD # Parenchymal nodules. - Multiple parenchymal nodules noted on CT chest on 10/17/18. Neoplasm can not be excluded - could consider bx as outpatient #NSTEMI within past 28 days - medical management - Plavix on hold due to GI bleed. Continue on statin, on carvedilol. # History of parainfluenza infection/HCAP # Pulmonary hypertension, on diuretic. #HTN - on diuretic, on captopril and carvedilol. #DVT prophylaxis, - mechanical prophylaxis Dispo: IV abx, transfer to med/surg A-FIB/CHADSVASC A-FIB History Current/History of A-Fib/PAF?: No Age/Risk Factor Scoring CHADSVASC: CHADSVASC Response (Comments) Value Age Risk Factor Age >/= 75 years old 2 Gender Risk Factor Female 1 Hx of CHF Yes 1 Hx of HTN Yes 1 Hx of Diabetes No 0 Total 5 VS,Fishbone, I+O VS, Fishbone, I+O Laboratory Tests 10/25/18 04:48 Red Blood Count 2.93 L, Mean Corpuscular Volume 94.2, Mean Corpuscular Hemo globin 30.0, Mean Corpuscular Hemoglobin Concent 31.9 L, Red Cell Distribution Width 12.5, Neutrophils (%) (Auto) 89.9 H, Lymphocytes (%) (Auto) 3.2 L, Monocytes (%) (Auto) 6.0 H, Eosinophils (%) (Auto) 0.3, Basophils (%) (Auto) 0.1, Neutrophils # (Auto) 17.2 H, Lymphocytes # (Auto) 0.6 L, Monocytes # (Auto) 1.2 H, Eosinophils # (Auto) 0.1, Basophils # (Auto) 0.0, Calcium Level 8.4 L Vital Signs Date Time Temp Pulse Resp B/P (MAP) Pulse Ox O2 Delivery O2 Flow Rate FiO2 10/25/18 07:09 98.0 81 20 140/70 (93) 96 2.0 10/22/18 18:00 Nasal Cannula I&O- Last 24 Hours up to 6 AM 10/25/18 06:00 Intake Total 930 ml Output Total 1850 ml Balance -920 ml NYDIA SOLIS MD October 25, 2018 08:09
[2018-10-25] MEDS: LORATADINE 10 MG TAB PO SCH (08:16)
[2018-10-25] MEDS: DOCUSATE SODIUM 100 MG CAP PO SCH ×2 (08:16→22:27)
[2018-10-25] MEDS: FUROSEMIDE 20 MG TAB PO SCH (08:16)
[2018-10-25] MEDS: predniSONE 20 MG TAB PO SCH (08:16)
[2018-10-25] MEDS: FERROUS SULFATE 325MG TAB PO SCH (08:16)
[2018-10-25] MEDS: PANTOPRAZOLE 40MG TAB (PROTONIX) PO SCH ×2 (08:16→22:26)
[2018-10-25] MEDS: FLUCONAZOLE 100 MG TAB PO SCH (08:17)
[2018-10-25] MEDS: CARVedilol 12.5 MG TAB PO SCH ×2 (08:17→22:26)
[2018-10-25] MEDS: SIMETHICONE 80 MG CHEW TAB PO SCH ×3 (08:17→22:27)
[2018-10-25] MEDS: CAPTOpril 3.125 MG PER 1/4 TABLET PO SCH ×2 (08:17→22:26)
[2018-10-25] MEDS: SENNA 8.6 MG TAB (SENOKOT) PO SCH ×2 (08:23→22:25)
[2018-10-25] MEDS ORDERED: SLF 3 ML SYR IV PRN (08:30)
[2018-10-25] MEDS: SLF 3 ML SYR IV SCH ×2 (14:00→22:27)
[2018-10-25 16:00] VITALS: BP 102/61
[2018-10-25 20:00] VITALS: BP 122/70
[2018-10-25 22:20] VITALS: BP 166/80
[2018-10-25] MEDS: ATORVASTATIN 10 MG TAB PO SCH (22:27)
[2018-10-26] VITALS (7 sets, daily range): BP systolic 130–168; BP diastolic 58–95
[2018-10-26] MEDS: LEVALBUTEROL 1.25 MG/0.5 ML CONCENTRATE NEB INH SCH ×7 (00:15→23:57)
[2018-10-26] MEDS: MEROPENEM INJ 1 GM in APPROPRIATE DILUENT 1 EA IV SCH ×2 (01:51→10:29)
[2018-10-26 05:09] LABS: BLOOD UREA NITROGEN 12 MG/DL (7-18); CALCIUM LEVEL 8.8 MG/DL (8.8-10.2); CARBON DIOXIDE LEVEL 41 MEQ/L (21-32); CHLORIDE LEVEL 90 MEQ/L (98-107); CREATININE FOR GFR 0.54 MG/DL (0.55-1.30); GLOMERULAR FILTRATION RATE > 60.0 (>32); GLUCOSE, FASTING 80 MG/DL (70-100); POTASSIUM SERUM 3.7 MEQ/L (3.5-5.1); SODIUM LEVEL 133 MEQ/L (136-145)
[2018-10-26 05:10] LABS: BASO % 0.2 % (0.0-1.0); EOS # 0.1 10^3/uL (0.0-0.50); EOS % 0.4 % (0.0-3.0); HEMATOCRIT 33.4 % (36.0-47.0); HEMOGLOBIN 10.4 g/dl (12.0-15.5); LYMPH # 0.8 10^3/uL (1.5-4.5); LYMPH % 3.5 % (24.0-44.0); MEAN CORPUSCULAR HEMOGLOBIN 28.9 pg (27.0-33.0); MEAN CORPUSCULAR HGB CONC 31.1 g/dl (32.0-36.5); MEAN CORPUSCULAR VOLUME 92.8 fl (80.0-96.0); MONO # 1.4 10^3/uL (0.0-0.8); MONO % 6.1 % (0.0-5.0); NEUTROPHILS # 19.9 10^3/uL (1.8-7.7); NEUTROPHILS % 89.4 % (36.0-66.0); PLATELET COUNT, AUTOMATED 441 10^3/uL (150-450); WHITE BLOOD COUNT 22.3 10^3/uL (4.0-10.0)
[2018-10-26] MEDS: SLF 3 ML SYR IV SCH ×3 (05:10→21:12)
[2018-10-26] MEDS: SYMBICORT 160/4.5MCG INHALER 6GM INH SCH ×2 (07:15→19:31)
[2018-10-26] MEDS: TIOTROPIUM INHALER/CAPSULE (SPIRIVA) INH SCH (07:16)
[2018-10-26] MEDS: FORMOTEROL FUMARATE 20 MCG/2 ML INHALATION SOLUTION (PERFOROMIST) INH SCH ×2 (07:16→19:30)
[2018-10-26] MEDS: PANTOPRAZOLE 40MG TAB (PROTONIX) PO SCH ×2 (08:09→20:29)
[2018-10-26] MEDS: FERROUS SULFATE 325MG TAB PO SCH (08:09)
[2018-10-26] MEDS: SENNA 8.6 MG TAB (SENOKOT) PO SCH ×2 (08:09→20:29)
[2018-10-26] MEDS: DOCUSATE SODIUM 100 MG CAP PO SCH ×2 (08:09→20:29)
[2018-10-26] MEDS: SIMETHICONE 80 MG CHEW TAB PO SCH ×3 (08:09→20:29)
[2018-10-26] MEDS: FLUCONAZOLE 100 MG TAB PO SCH (08:09)
[2018-10-26] MEDS: FUROSEMIDE 20 MG TAB PO SCH (08:10)
[2018-10-26] MEDS: LORATADINE 10 MG TAB PO SCH (08:10)
[2018-10-26] MEDS: predniSONE 20 MG TAB PO SCH (08:10)
[2018-10-26] MEDS: CARVedilol 12.5 MG TAB PO SCH ×2 (08:10→20:30)
[2018-10-26] MEDS: CAPTOpril 3.125 MG PER 1/4 TABLET PO SCH ×2 (08:11→20:31)
[2018-10-26] MEDS: ASPIRIN 81 MG CHEW TABLET PO SCH (13:12)
--- NOTE | 2018-10-26 13:44 | IPN ---
DATE OF VISIT: 10/26/2018 SUBJECTIVE: The patient seen and examined in the room today. The patient states she has complaint of significant fatigue. Denied any fever or chills. Denies any productive cough. Denied any urinary symptoms. Denied any diarrhea. OBJECTIVE VITAL SIGNS: Temperature 98.2. Pulse 87. Respiration 18. Blood pressure 147/68. Pulse oximetry 92% on 1 liter of oxygen. GENERAL: Fatigued. Patient is alert and awake. HEENT: Normocephalic, atraumatic. Extraocular movements intact. CARDIOVASCULAR: Positive S1 and S2. Regular rate. LUNGS: Diminished breath sounds. No significant wheeze is appreciated. ABDOMEN: Soft. Nontender. Bowel sounds present. EXTREMITIES: No significant edema. LABORATORY DATA: WBC 22.3, hemoglobin 10.4, hematocrit 33.4, and platelet count is 441. Sodium 133, potassium 3.7, chloride 90, carbon dioxide 41, BUN 12, creatinine 0.54, GFR greater than 60, fasting glucose 80, calcium 8.8. ASSESSMENT AND PLAN: 1. Hypoxic respiratory failure. The patient was treated for hospital acquired pneumonia. The patient was on IPPV previously. The patient also has a history of end stage chronic obstructive pulmonary disease (COPD) with at baseline patient using 2 liters of oxygen. Imaging study was performed. The patient was found to have multiple parenchymal nodules. The patient's breathing seemed to be at her baseline. The patient will need followup outpatient closely for possible lung biopsy. Due to GI bleed, the patient's Plavix is on hold. On aspirin. On Coreg. 2. Acute GI bleed. Plavix on hold. GI consulted. The patient had a colonoscopy 10/21/2018. The patient was found to have polyps, status post resection, moderate diverticulosis in the sigmoid colon, and internal hemorrhoids. Currently the patient denied any recurrence of the GI bleed. Continue to monitor. 3. Pelvic mass. Pelvic ultrasound was performed, however, that was a very limited study. 4. End stage COPD. Continue with oxygen saturation between 88-92%. At baseline, patient has been using oxygen. 5. Parenchymal nodule. Recommend outpatient biopsy followup. 6. History of parainfluenza infection and hospital acquired pneumonia status post course of antibiotics. 7. Pulmonary hypertension. On Lasix. 8. Deep vein thrombosis (DVT) prophylaxis. On thromboembolic deterrent stocking (LYNDSEY) compression.
[2018-10-26] MEDS: ATORVASTATIN 10 MG TAB PO SCH (20:29)
--- NOTE | 2018-10-26 21:54 | CR ---
DATE OF CONSULTATION: 10/26/2018 INFECTIOUS DISEASE CONSULTATION Asked to consult by hospitalist for evaluation of worsening leukocytosis in a patient who has been hospitalized since 10/08/2018. Madeline is a pleasant 83-year-old female with a history of chronic obstructive pulmonary disease (COPD), on oxygen at 3 liters nasal cannula and prednisone 5 mg daily at baseline. The patient was admitted to our hospital on 10/08/2018 with pneumonia. She had pneumococcal antigen positive in her urine and parainfluenza on nasal swab. The patient was treated with IV meropenem and Zithromax for 7 days from 10/08/2018 to 10/14/2018 with improvement of her symptoms. She also received prednisone, which was tapered from admission 40 mg to 20 mg. She was transferred to rehabilitation with Dr. Coburn for a week and developed worsening shortness of breath, cough, malaise and weakness. She also had a gastrointestinal (GI) bleed and a colonoscopy had been done by Dr. Smith, which she was noted to have a polyp; two polyps were removed, tubular adenoma and hyperplastic polyp. She also had complication of non-ST elevation myocardial infarction (AZ) and had an echo, which showed a normal ejection fraction. That was felt to be related to demand ischemia from the pneumonia. She was seen in consultation with Dr. Wu on 10/09/[address] chest was done on two occasions without contrast, which showed nodules which looked infectious in nature. Today, the patient feels better. She does not have a productive cough. She has not had a fever in 48 hours. She had a low grade fever 2 days ago, 100.1. She denies any nausea, vomiting or diarrhea. No abdominal pain. Her shortness of breath is actually at baseline if not better. Her oxygen saturation (O2 sat) is at one liter 92%. ALLERGIES: ALENDRONATE, AMOXICILLIN, ATORVASTATIN, IBANDRONATE, LEVOFLOXACIN, QUININE. MEDICATIONS: Aspirin 81 mg by mouth daily, furosemide 20 mg by mouth daily, Senokot one tablet by mouth twice a day, ferrous sulfate 325 mg daily, Claritin 10 mg daily, prednisone 20 mg daily since 10/23/2018, Spiriva one inhalation daily, atorvastatin 10 mg by mouth nightly, Symbicort two puffs inhaled twice a day, captopril 3.125 mg twice a day, Coreg 25 mg by mouth twice a day, Colace 100 mg by mouth twice a day, Protonix 40 mg by mouth twice a day. Meropenem 1 gram IV every 8 hours was discontinued on 10/26/2018. The patient has received a total of 12 days of meropenem and 14 days of Zithromax. Flonase two inhalation daily as needed and nitroglycerin as needed. LABORATORY DATA: White count was 22.3 today, increased from 19.1 yesterday, hemoglobin 10.4, hematocrit 33.4, platelets 441, 89% neutrophils, 3% lymphocytes, 6% monocytes. ESR 63. Sodium 133, potassium 3.7, chloride 90, bicarbonate 41, BUN 12, creatinine 0.54, glucose 80, calcium 8.8. BNP 3202, which is improved from admission at 6831. TSH 0.279, free T4 of 3.7. Blood culture on admission was negative. Respiratory panel: PCR was positive for parainfluenza. Sputum culture had yeast-like organism on two occasions. Repeat respiratory panel done on 10/22/2018 was negative. Urine pneumococcal antigen was positive. Urine Legionella antigen was negative. IMAGING STUDIES: Pelvic ultrasound done on 10/22/2018: Limited. Uterus is vaguely visualized. Ovaries could not be identified. Left pelvic mass could not be ruled out. CT abdomen done on 10/22/2018 shows evidence of a pelvic mass measuring about 5.8 cm. This could include a nonopacified adherent bowel. There was no oral prep. Ultrasound did not show a mass. CT chest showed multiple pulmonary nodules, look infectious in nature. I reviewed the CT myself with Dr. Camarillo who stated that there is an increase in nodules from initial CT to a CT done on 10/22/2018. On physical exam, she is a pleasant elderly female in no acute distress. Temperature is 97.8, pulse 89, respirations 20, blood pressure 166/78, oxygen saturation 92% on one liter nasal cannula. Heart: Normal S1, S2, distant. No murmurs appreciated. Lungs: Very diminished air entry. No wheezes, rales or rhonchi appreciated. Abdomen: Soft, nontender. No hepatosplenomegaly. Back: No costovertebral angle (CVA) or lumbosacral tenderness. Extremities: +1 pitting edema bilaterally. No clubbing or cyanosis. She has compression stockings on both lower extremities. Oropharynx is clear with no lesions. No thrush. Neurologic Exam: Alert and oriented times three. Motor strength is normal. IMPRESSION: This is an 83-year-old female who was admitted with pneumonia and COPD exacerbation. The etiology of her pneumonia was pneumococcal, possibly also parainfluenza. The patient was treated with IV meropenem a total of 12 days and Zithromax a total of 14 days. She had worsening shortness of breath 3 days ago with a low grade fever of 100.1 that occurred right after she had a colonoscopy for GI bleed. The patient clinically is back to baseline. Her leukocytosis persists. The patient remains on prednisone 20 mg daily. She has received ample doses of antibiotics for pneumococcal pneumonia including 12 days of meropenem and 14 days of Zithromax, which would also cover any atypical pathogens. Urine Legionella antigen was negative. Her leukocytosis is possibly reactive from steroids and GI bleeding. Clinically, I do not see any evidence of infection, and I would not recommend any further antibiotics. PLAN: Case discussed with pulmonary. I would recommend followup CT chest in 3 weeks and followup with pulmonary regarding pulmonary nodules. Will obtain procalcitonin and that has trended down from admission. Initial procalcitonin was 4.69 on 10/08/2018 down to 0.33 on 10/22/2018. If procalcitonin continues to decrease, her leukocytosis is not bacterial in origin. CRP was also added. Continue fluid restriction and diuretics for congestive heart failure. Thank you for consultation. Do not restart antibiotics for leukocytosis.
[2018-10-26 22:11] LABS: C REACTIVE PROTEIN QUANTITATIV 1.67 MG/DL (0.00-0.30)
[2018-10-27 01:32] VITALS: BP 180/72
[2018-10-27] MEDS ORDERED: CARVedilol 3.125 MG TAB PO ONE ×2 (02:00→04:15)
[2018-10-27] MEDS: ACETAMINOPHEN 325 MG TAB PO PRN (02:15)
[2018-10-27] MEDS: LEVALBUTEROL 1.25 MG/0.5 ML CONCENTRATE NEB INH SCH ×2 (03:25→08:00)
[2018-10-27 04:00] VITALS: BP 172/80
[2018-10-27 04:41] VITALS: BP 138/64
[2018-10-27] MEDS: SLF 3 ML SYR IV SCH (06:00)
[2018-10-27 07:08] LABS: BASO % 0.2 % (0.0-1.0); EOS # 0.2 10^3/uL (0.0-0.50); EOS % 1.2 % (0.0-3.0); HEMATOCRIT 29.5 % (36.0-47.0); HEMOGLOBIN 9.4 g/dl (12.0-15.5); LYMPH % 5.6 % (24.0-44.0); MEAN CORPUSCULAR HEMOGLOBIN 29.4 pg (27.0-33.0); MEAN CORPUSCULAR HGB CONC 31.9 g/dl (32.0-36.5); MEAN CORPUSCULAR VOLUME 92.2 fl (80.0-96.0); MONO # 1.2 10^3/uL (0.0-0.8); MONO % 6.9 % (0.0-5.0); NEUTROPHILS # 15.3 10^3/uL (1.8-7.7); NEUTROPHILS % 85.5 % (36.0-66.0); PLATELET COUNT, AUTOMATED 549 10^3/uL (150-450); WHITE BLOOD COUNT 17.9 10^3/uL (4.0-10.0)
[2018-10-27 07:29] LABS: BLOOD UREA NITROGEN 11 MG/DL (7-18); CALCIUM LEVEL 8.8 MG/DL (8.8-10.2); CARBON DIOXIDE LEVEL 42 MEQ/L (21-32); CHLORIDE LEVEL 87 MEQ/L (98-107); CREATININE FOR GFR 0.52 MG/DL (0.55-1.30); GLOMERULAR FILTRATION RATE > 60.0 (>32); GLUCOSE, FASTING 98 MG/DL (70-100); POTASSIUM SERUM 3.4 MEQ/L (3.5-5.1); SODIUM LEVEL 133 MEQ/L (136-145)
[2018-10-27] MEDS: FORMOTEROL FUMARATE 20 MCG/2 ML INHALATION SOLUTION (PERFOROMIST) INH SCH (08:00)
[2018-10-27] MEDS: SYMBICORT 160/4.5MCG INHALER 6GM INH SCH (08:43)
[2018-10-27 08:50] VITALS: BP 138/64
[2018-10-27] MEDS: LORATADINE 10 MG TAB PO SCH (08:50)
[2018-10-27] MEDS: SENNA 8.6 MG TAB (SENOKOT) PO SCH (08:50)
[2018-10-27] MEDS: FUROSEMIDE 20 MG TAB PO SCH (08:50)
[2018-10-27] MEDS: SIMETHICONE 80 MG CHEW TAB PO SCH (08:50)
[2018-10-27] MEDS: predniSONE 20 MG TAB PO SCH (08:50)
[2018-10-27] MEDS: PANTOPRAZOLE 40MG TAB (PROTONIX) PO SCH (08:50)
[2018-10-27] MEDS: FERROUS SULFATE 325MG TAB PO SCH (08:50)
[2018-10-27] MEDS: ASPIRIN 81 MG CHEW TABLET PO SCH (08:50)
[2018-10-27] MEDS: CARVedilol 12.5 MG TAB PO SCH (08:50)
[2018-10-27] MEDS: DOCUSATE SODIUM 100 MG CAP PO SCH (08:50)
[2018-10-27] MEDS: CAPTOpril 3.125 MG PER 1/4 TABLET PO SCH (08:51)
[2018-10-27] MEDS ORDERED: POTASSIUM CHLORIDE 10 MEQ SR TABLET PO ONE (09:00)
--- NOTE | 2018-10-27 17:40 | DSES ---
DATE OF ADMISSION: 10/22/2018 DATE OF DISCHARGE: 10/27/2018 PRIMARY CARE PROVIDER: Dr. Baker CONSULTANTS: Infectious disease. DISCHARGE DIAGNOSIS: 1. Hypoxic respiratory failure. 2. Acute GI bleed. 3. Pelvic mass. 4. End stage COPD. 5. Parenchymal nodules. 6. History of parainfluenza infection and hospital acquired pneumonia. 7. Pulmonary hypertension. 8. Multiple thyroid nodules. HOSPITALIZATION COURSE: Patient is an 83-year-old female who was originally in the ARU for acute rehabilitation. Patient had a colonoscopy performed for GI bleed investigation. After patient returned from colonoscopy patient was noted to have worsening shortness of breath due to acute decompensation with worsening respiratory status, patient is transferred to hospitalist service for further evaluation and treatment. On admission there was suspicion for pneumonia. Patient was restarted on the empiric antibiotics. With medical management patient's respiratory status continued to improve. Patient's fluid status also monitored closely. Later preliminary sputum cultures showed some yeast like organism. Patient was started on antifungal treatments. Due to the persistent leukocytosis infectious disease specialist was consulted. Recommend observation. On 10/27/2018 the patients respiratory status has improved to her baseline and patient was accepted to the ARU to continue acute rehabilitation. VITAL SIGNS ON DAY OF DISCHARGE: Temperature 97.3, pulse 77, respiratory rate 20, blood pressure 138/64, pulse ox 93% with 2 liters nasal cannula. LABS ON THE DAY OF DISCHARGE: WBC 17.9, hemoglobin 9.4, hematocrit 29.5, platelet count 549, sodium 133, potassium 3.4, chloride 87, carbon dioxide 42, BUN 11, creatinine 0.52, GFR greater than 60, fasting glucose 98, calcium 8.8, pro calcitonin 0.1, microbiology, respiratory panel was negative. Sputum culture showed yeast like organism. IMAGING STUDIES: Thyroid ultrasound demonstrate a solid nodule at the right lobe 1.2 cm in maximum diameter, left lobe is essentially replaced on large mass containing multiple calcifications extending into the left superior mediastinum with normal left lobe measuring 4.9 x 2 x 2.6 cm. Pelvic ultrasound demonstrated extremely limited transabdominal pelvic ultrasound. Uterus is vaguely visualized. Ovary could not be identified. The left pelvic mass could not be identified. DISCHARGE MEDICATION: Tylenol 650 mg by mouth every 4 hours as needed for fever or mild pain, xanax 0.125 mg by mouth three times a day, aspirin 81 mg by mouth daily, atorvastatin 10 mg by mouth daily, bisacodyl 10 mg per rectum daily as needed for constipation, Symbicort 2 puff inhalation twice a day, captopril 3.125 mg by mouth twice a day, carvedilol 25 mg by mouth twice a day, Colace 100 mg by mouth twice a day, ferrous sulfate 325 mg by mouth daily, Flonase 2 spray daily as needed for allergies, Pulmicort 20 mcg inhalation twice a day, Lasix 20 mg by mouth daily, Combivent 1 puff inhalation four times a day as needed, Xopenex 1.25 mg inhalation every 4 hours, Claritin 10 mg by mouth daily, metoprolol succinate 25 mg by mouth daily. Nitroglycerin 0.4 mg sublingual every 5 minutes as needed for chest pain. Pantoprazole 40 mg by mouth twice a day, prednisone taper, Simethicone 80 mg by mouth three times a day, Spiriva inhalation daily. DISCHARGE INSTRUCTION: Discontinue line, discharge patient to acute rehabilitation activity per acute rehabilitation instruction, low salt diet as tolerated. Patient should followup with her followup with her primary care provider in one week after discharge. Patient had multiple imaging studies required further workup to rule out a malignancy. DISCHARGE CONDITION: Fair. DISCHARGE TIME: Greater than 30 minutes.
== END 2018-10-27 13:44 | DRG 177 ==
LOC: M PCU 15:55 → M MS4PR 10-26 09:56
PROVIDERS: ADMIT Internal Medicine; ATTEND Internal Medicine
DX: J69.0 Pneumonitis due to inhalation of food and vomit (principal); G93.41 Metabolic encephalopathy; I50.33 Acute on chronic diastolic (congestive) heart failure; I21.4 Non-ST elevation (NSTEMI) myocardial infarction; J96.22 Acute and chronic respiratory failure with hypercapnia; J44.0 Chronic obstructive pulmonary disease with (acute) lower respiratory infection; K92.2 Gastrointestinal hemorrhage, unspecified; E04.1 Nontoxic single thyroid nodule; Z79.899 Other long term (current) drug therapy; Z79.82 Long term (current) use of aspirin; Z88.8 Allergy status to other drugs, medicaments and biological substances; Z79.52 Long term (current) use of systemic steroids; Z88.0 Allergy status to penicillin; I27.20 Pulmonary hypertension, unspecified; I11.0 Hypertensive heart disease with heart failure

== ENCOUNTER 2018-10-27 12:05 | Inpatient (IN) | payer MEDICARE ==
[~2018-10-27] VITALS: Ht 157.5 cm; Wt 51.1 kg
[~2018-10-27 12:05] MED LIST changes: +METO1TAB32 PO
[2018-10-27 13:45] VITALS: BP 116/59
[2018-10-27] MEDS ORDERED: ONDANSETRON 4 MG TAB (S0181) PO PRN (14:30)
[2018-10-27] MEDS ORDERED: NITROGLYCERIN 0.3 MG SUBL TAB SL PRN (14:30)
[2018-10-27] MEDS ORDERED: MOM 30ML SUSPENSION UDC PO PRN (14:30)
[2018-10-27] MEDS ORDERED: IPRATROPIUM 0.5MG/ALBUTEROL 2.5MG INH SOL UD 3ML (DUONEB)(J7620) NEB PRN (14:30)
[2018-10-27] MEDS: SIMETHICONE 80 MG CHEW TAB PO SCH ×2 (16:00→21:00)
[2018-10-27] MEDS: LEVALBUTEROL 1.25 MG/0.5 ML CONCENTRATE NEB INH SCH ×3 (16:00→23:24)
--- NOTE | 2018-10-27 16:07 | HPEPDOC ---
Manager Apple Note DATE OF ADMISSION: October 27, 2018 at 13:45 SOURCE OF ADMISSION INFORMATION: [facility] records and patient CHIEF COMPLAINT: recent pneumonia with COPD exacerbation, NSTEMI HISTORY OF PRESENT ILLNESS: 83F pmh COPD on 2L 02 at home, HTN, and HLD who initially presented to [facility] with one week of cough and worsening dyspnea, was placed on antibiotics and nebulizer treatments without resolution of her symptoms where she was placed on BiPAP and transferred to [facility] ED on 10/08/18. On arrival CXR showed Bilateral lower lobe infiltrates consistent with pneumonia and nasal swab was positive for parainfluenza. She was admitted for acute hypoxic and hypercapnia with respiratory failure and started on IV Solumedrol in continued on BIPAP. She was found to have elevated cardiac markers and EKG findings without ST elevations for which she was placed on Lovenox for NSTEMI treatment. ECHO on 10/09/18 revealed, Normal left ventricular size, wall thickness and hyperkinetic wall motion. Normal left atrial size. Unable to assess left ventricular (LV) diastolic function in light of atrial fibrillation but estimated mean left atrial pressure was within normal limits. Pulmonology was consulted and it was recommended to continue Meropenem and Azithromycin and to wean off of systemic corticosteroids. She was evaluated by therapy and found to have deficiencies in gait and ADLs compared to her prior level of function and deemed medically appropriate for discharge to ARU on 10/14/18 where she initially made significant functional gains, however complained of abdominal cramping with a positive fecal occult blood test. CT chest on 10/17/18 showed, There are parenchymal nodules in the lungs as described above. Neoplasm cannot be excluded. And CT abdomen pelvis showed, There is irregular heterogeneous mass in the pelvis contiguous with the uterus and sigmoid colon. This appears to be a mass arising from the sigmoid colon. Patient later had blood in her stool for which GI consult was placed, her Lovenox and Plavix held, with colonoscopy on 10/21/18 revealing, Severe tortuosity or extrinsic compression in the mid sigmoid colonOne 10 mm polyp at the appendiceal orificeOne 20 mm polyp in the mid sigmoid colonModerate diverticulosis in the sigmoid colon Significant spasm Internal hemorrhoids. GI recommended to restart Plavix one week from date of colonoscopy. The next day patient developed worsening shortness of breath with worsening abdominal cramping and was discharged off ARU for suspected persistent pneumonia. She was placed back on IV Meropenem, her leukocytosis gradually decreased, was thought to be in part from steroids and reaction to GI bleed. Repeat Respiratory Panel was negative, she was evaluated by ID who recommended taking patient off antibiotics. Patient continued to demonstrate a decline in her overall function with gait and ADL deficits and deemed medically appropriate for discharge to ARU on 10/27/18. REVIEW OF SYSTEMS: The following is a completed review of systems and has been reviewed. Review of systems otherwise unremarkable. PAIN: Patient self reports mild abdominal cramping EYES: Negative for recent vision changes EARS, NOSE, & THROAT: no dysphagia/rhinorrhea/hearing loss CARDIOVASCULAR: denies chest pain or palpitations PULMONARY: Negative. +exertional dyspnea (chronic) GASTROINTESTINAL: +lower abdominal cramping, no nausea/vomiting GENITOURINARY: no dysuria MUSCULOSKELETAL: weakness NEUROLOGICAL: no tremor/seizure activity HEMATOLOGICAL:+anemia SKIN: no rash PSYCHIATRIC: Unremarkable All other review of systems found to be negative. PAST MEDICAL HISTORY: as per HPI PAST SURGICAL HISTORY: Appendectomy, Tubal ligation, Bladder suspension, Fibroid removal with hysterectomy, Breast lumpectomy ALLERGIES: Please see below. MEDICATIONS: Please see below. SOCIAL HISTORY: ex-smoker with 90-pack years, no ETOH or illicit drugs DIET: low sodium with fluid restriction PHYSICAL EXAMINATION: VITAL SIGNS: Please see below. GENERAL: Pleasant and cooperative. No acute distress, thin HEENT: PERRL. Extraocular movements intact. Clear conjunctiva CARDIOVASCULAR: Regular rate and rhythm. No murmurs, rubs, or gallops LUNGS: CTA, No wheeze/rhonchi ABDOMEN: Soft, nontender, nondistended. Positive bowel sounds. Normal active bowel sounds. NEUROLOGICAL: Alert and oriented times three. Cranial nerves II through XII grossly intact. Sensation grossly intact in all 4 extremities EXTREMITIES: 5-\\5 strength bilateral upper extremities. 5-\\5 strength right lower extremity. 5-/5 strength in left lower extremity. SKIN: atrophied skin, scattered ecchymosis, left breast incision healed IMAGING: Imaging documentation personally reviewed by record. FUNCTIONAL STATUS: Premorbid: Independent with all activities of daily life as well as mobility On Admission: Standby assist with ambulation requiring multiple rest breaks for dyspnea with RW, stand-by assist for functional transfers, min assist for lower body dressing. GOALS: Mod-I with RW ambulating community distances, stair negotiation, Mod-I for bathing, toileting, dressing, medical optimization, assess for DME needs and family training. ASSESSMENT:83-year-old F with past medical history of COPD on home 02 who presents status post hospital acquired PNA with new diagnosis of Afib and recent NSTEMI. PLAN: 1. Rehab: PT, OT, assess for DMEs 2. Neuro: stable. monitor for delirium 3. cArdiac: NSTEMI due to cardiac demand in setting of COPD exacerbation and pneumonia- c/u ASA-plavixd on hold per GI recs until 10/28/18 then ok to restart, s/p Lovenox for NSTEMI- medicine consulted -HTN c/u beta-olesya, and ADEN-I, and Lasix -HLD on Lipitor 4. resp: pmh COPD s/p recent hypercapneic, hypoxic respiratory failure, DNI, titrate 02 to 88-92%, c/u breathing treatments, +parainfluenza with PNA on last visit, repeat Resp panel negative, will d/c precautions, s/p Meropenem and Azithromycin, c/u breathing treatments and steroid taper -recent Chest CT with lesions suspicious for malignancy, will have patient f/u with Pulmonology as outpatient 5. GI ppx:c/u Protonix BID given patient on steroid taper in setting of +FOBT and recent GI bleed -s/p colonoscopy 10/21/18 positive for diverticulosis and internal hemorrhoids, " Cecal polyp, polypectomy: Hyperplastic polyp...Sigmoid colon polyp, polypectomy: Fragments of tubular adenoma."- will need outpatient GI follow-up - c/u simethicone for abdominal bloating/cramping 6. DVT ppx: on full dose Lovenox- teds 7. Endo: thyroid US positive for mass, will refer to endocrinology as outpatient 8. : monitor PVRs, monitor for signs of UTI 9. Disp: TBD 10. DNR/DNI POST ADMISSION PHYSICIAN EVALUATION: Medical and functional status: Description of medical status, medical assessment: As above. Rehabilitation diagnosis and current and prior cold morbid medical conditions as above. Risk of complications and plans to mitigate them as above. Description of functional status current status is as above. Prior status as above. Status compared to preadmission: There are no clinically significant differences between the patient's current status and the information described on the preadmission screening document. Treatment plan anticipated: Treatment plan is as described above. Required disciplines including physical therapy, occupational therapy, others as noted a stella Intensity of services: 3 hours a day, 6 days a week. Special considerations: There are no specific special or safety considerations that would likely preclude immediate implementation of an intensive rehabilitation program or subsequently influence the plan of care. ATTESTATION: Considering all the information above, it is my best judgment that this patient requires intensive rehabilitation therapy as described above and an inpatient hospital environment due to the complexity of nursing, medical, and rehabilitation needs required by the patient. Furthermore, this patient can reasonably be expected to participate in an benefit from an inpatient rehabilitation stay with an interdisciplinary team approach to the delivery of rehabilitation care under the direction and supervision of rehabilitation physician. PROGNOSIS: Good ESTIMATED LENGTH OF STAY:7-10 days. PROJECTED DISCHARGE DESTINATION: Home with family support and any durable medical equipment required to increase functional safety and mobility TIME SPENT COUNSELING AND COORDINATING INITIAL CARE: Greater than 70 minutes. Vital Signs Vital Sign - Last 24 Hours 10/27/18 13:45 Temp 97.9 Pulse 87 Resp 15 B/P (MAP) 116/59 (78) Pulse Ox 92 O2 Flow Rate 3.0 Home Medications Scheduled Alprazolam (Alprazolam) 0.25 Mg Tablet, 0.125 MG PO TID Aspirin (Children's Aspirin) 81 Mg Tab.chew, 81 MG PO DAILY Atorvastatin Calcium (Atorvastatin Calcium) 10 Mg Tablet, 10 MG PO QHS Budesonide/Formoterol (Symbicort 160-4.5 Mcg Inhaler) 6 Gm Hfa.aer.ad, 2 PUFF INH BID, (Reported) Captopril (Captopril) 12.5 Mg Tablet, 3.125 MG PO BID Carvedilol (Carvedilol) 12.5 Mg Tablet, 25 MG PO BID Docusate Sodium (Colace) 100 Mg Capsule, 100 MG PO BID Ferrous Sulfate (Ferrous Sulfate) 325 Mg Tablet, 325 MG PO DAILY, (Reported) Formoterol Fumarate (Perforomist) 20 Mcg/2 Ml Vial.neb, 20 MCG INH RBID Furosemide (Furosemide) 20 Mg Tablet, 20 MG PO DAILY Levalbuterol Hydrochloride (Xopenex Concentrate) 1.25 Mg/0.5 Ml Vial.neb, 1.25 MG INH RQ4H Loratadine (Claritin) 10 Mg Capsule, 10 MG PO DAILY, (Reported) Metoprolol Succinate (Metoprolol Succinate) 25 Mg Tab.er.24h, 25 MG PO DAILY, (Reported) NEW MED Pantoprazole Sodium (Pantoprazole Sodium) 40 Mg Tablet.dr, 40 MG PO BID Prednisone (Prednisone) 20 Mg Tablet, 20 MG PO DAILY, (Reported) START 10/19-10/26 Prednisone (Prednisone) 10 Mg Tablet, 10 MG PO DAILY, (Reported) START 10/26-11/02 Prednisone (Prednisone) 5 Mg Tablet, 5 MG PO DAILY, (Reported) START 11/02 Senna (Senna Lax) 8.6 Mg Tablet, 1 TAB PO QHS Simethicone (Simethicone) 80 Mg Tab.chew, 80 MG PO TID Tiotropium [place] Monohydrate (Spiriva) 18 Mcg Cap.w.dev, 1 INHALATION INH DAILY@08 Scheduled PRN Acetaminophen (Acetaminophen) 325 Mg Tablet, 650 MG PO Q4HP PRN for fever/MILD PAIN (PS 1-4) Bisacodyl (Bisacodyl) 10 Mg Supp.rect, 10 MG RI DAILYPRN PRN for CONSTIPATION Fluticasone Propionate (Flonase Allergy Relief) 9.9 Ml [place].susp, 2 SPRAY NA DAILY PRN for ALLERGIES, (Reported) Ipratropium/Albuterol Sulfate (Combivent Respimat 20-100 Mcg) 4 Gm Mist.inhal, 1 PUFF INH QID PRN for SHORTNESS OF BREATH, (Reported) Nitroglycerin (Nitrostat) 0.4 Mg Tab.subl, 0.4 MG SL Q5MP PRN for CHEST PAIN Allergies Coded Allergies: alendronate sodium (Unverified Allergy, Unknown, 10/08/18) amoxicillin (Unverified Allergy, Unknown, 10/08/18) atorvastatin (Unverified Allergy, Unknown, 10/08/18) ibandronate sodium (Unverified Allergy, Unknown, 10/08/18) levofloxacin (Unverified Allergy, Unknown, 10/08/18) quinine (Unverified Allergy, Unknown, 10/08/18) risedronate sodium (Unverified Allergy, Unknown, 10/08/18) A-FIB/CHADSVASC A-FIB History Current/History of A-Fib/PAF?: No LUNA-KAUSHIK,MELISA MD October 27, 2018 16:07
[2018-10-27 20:00] VITALS: BP 142/68
[2018-10-27] MEDS ORDERED: FORMOTEROL FUMARATE 20 MCG/2 ML INHALATION SOLUTION (PERFOROMIST) INH SCH (20:00)
[2018-10-27] MEDS: SYMBICORT 160/4.5MCG INHALER 6GM INH SCH (20:57)
[2018-10-27] MEDS: DOCUSATE SODIUM 100 MG CAP PO SCH (21:00)
[2018-10-27] MEDS: SENNA 8.6 MG TAB (SENOKOT) PO SCH (21:00)
--- NOTE | 2018-10-27 21:14 | CR ---
DATE OF CONSULTATION: 10/27/2018 REFERRING PHYSICIAN: ARU ATTENDING PHYSICIAN: Dr. Coburn REASON FOR CONSULTATION: Medical management. Patient was 83-year-old female initially was transferred from [facility] to [facility] for acute respiratory failure. Patient was being treated medically. During her hospitalization patient was found to have parainfluenza infection. Patient was treated for hospital acquired pneumonia. During the hospitalization patient was also found to have [id number] myocardial infarction (NSTEMI). Later patient was taken to ARU for rehabilitation. While patient was in the ARU, patient was found to have a GI bleed. Diagnostic workup was performed. Shortly after the colonoscopy, patient developed acute worsening of respiratory distress. Patient transferred back to the hospitalist service for further management. Patient was found to have possible aspiration pneumonia. Patient was found to have signs of fluid overload. Patient being treated medically. While patient's respiratory status approaching her baseline, patient transferred back to ARU for further rehabilitation. The hospitalist team was consulted for medical management. PAST MEDICAL HISTORY: 1. Hypoxic respiratory failure. 2. Acute GI bleed. 3. Pelvic mass. 4. End stage COPD. 5. Parenchymal nodules. 6. Bilateral thyroid nodules. 7. History of parainfluenza infection. 8. History of hospital acquired pneumonia. 9. Pulmonary hypertension. 10. NSTEMI. PAST SURGICAL HISTORY: Appendectomy. Tubal ligation. Bladder suspension. Fibroid removal with hysterectomy. Breast lumpectomy. ALLERGIES: OLANZAPINE, AMOXICILLIN, ATORVASTATIN, LEVAQUIN. SOCIAL HISTORY: Patient quit smoking in 1997. Patient has more than 60 year history of smoking. Patient DO NOT RESUSCITATE (DNR), DO NOT INTUBATE (DNI). REVIEW OF SYSTEMS: GENERAL: Denies any fever, chills. HEENT: Denies any visual or auditory changes. RESPIRATORY: Patient still complains of difficulty breathing. There is some bilateral lower extremity swelling. Denies any significant cough. CARDIOVASCULAR: Denies any chest pain or palpitations. GI: No nausea, no vomiting. No diarrhea. MUSCULOSKELETAL: Denies any acute muscle pain or joint pain. NEUROLOGICAL: Denies any numbness or tingling. OBJECTIVE: VITAL SIGNS: Temperature 97.9, pulse 87, respirations 15, blood pressure 116/59, pulse oximetry 92% on 3 liters oxygen. GENERAL: Fatigued. Alert, awake. No severe distress. HEENT: Normocephalic, atraumatic. Extraocular movements grossly intact. CARDIOVASCULAR: Positive S1, S2, regular rate. LUNGS: Very diminished breath sounds, positive expiratory wheezes. No significant crackle appreciated. GI: Soft, nontender. Bowel sounds present. EXTREMITIES: Positive lower extremity edema. LABORATORY DATA: WBC 17, hemoglobin 9.7, hematocrit 29.5, platelet count 549. Sodium is 133, potassium 40.4, chloride is 87. Carbon dioxide 42, BUN 11, creatinine 0.52. GFR greater than 60, fasting glucose is 98. Calcium 8.8. Procalcitonin is 0.1. ASSESSMENT AND PLAN: 1. Physical deconditioning. Patient is current ARU. Refer diet, activity level, pain control and anticoagulation per ARU recommendations. 2. Acute on chronic hypoxic respiratory failure. Patient has end-stage COPD. Patient had treatment for parainfluenza virus and hospital acquired pneumonia previously. Patient does have very advanced COPD. Patient was evaluated by the recruiter coordinator previously. It is recommended patient continue with very slow steroid taper. Patient also has pulmonary hypertension with a complicated respiratory status. Patient should be on diuretics. 3. NSTEMI. Patient should be on aspirin and statin, and carvedilol. Due to the GI bleed, Plavix has been on hold. 4. Leukocytosis. Patient did have a prolonged hospitalization stay previously. Patient was checked for parainfluenza infection, hospital acquired pneumonia and possible aspiration pneumonia. Patient has been on long course IV antibiotic previously. Patient was seen by Infectious disease specialist and recommended observation at this moment. Should not restart the antibiotic unless there is a change in her clinical picture. 5. History of sinus tachycardia. On beta blockers. 6. Hypertension. On diuretics and carvedilol and captopril. 7. History of breast cancer, status post lumpectomy. 8. Bilateral thyroid nodules, parenchymal nodules, and pelvic mass. Patient currently getting acute rehabilitation in ARU. Patient really needs close followup with medical provider for further workup to rule out malignancy. 9. Deep venous thrombosis (DVT) prophylaxis. Patient is on TEDs and compressions.
[2018-10-27] MEDS: PANTOPRAZOLE 40MG TAB (PROTONIX) PO SCH (21:41)
[2018-10-27] MEDS: FERROUS SULFATE 325MG TAB PO SCH (21:41)
[2018-10-27] MEDS: CAPTOpril 3.125 MG PER 1/4 TABLET PO SCH (21:41)
[2018-10-27] MEDS: CARVedilol 12.5 MG TAB PO SCH (21:42)
[2018-10-27] MEDS: ATORVASTATIN 10 MG TAB PO SCH (21:42)
[2018-10-28] MEDS: ACETAMINOPHEN TAB 650MG DOSE (2X325MG) PO PRN ×2 (00:03→20:52)
[2018-10-28] MEDS: LEVALBUTEROL 1.25 MG/0.5 ML CONCENTRATE NEB INH SCH ×6 (04:02→23:35)
[2018-10-28 05:31] VITALS: BP 151/70
[2018-10-28 06:47] LABS: BASO % 0.2 % (0.0-1.0); EOS # 0.3 10^3/uL (0.0-0.50); EOS % 1.8 % (0.0-3.0); HEMATOCRIT 27.7 % (36.0-47.0); HEMOGLOBIN 8.8 g/dl (12.0-15.5); LYMPH # 1.1 10^3/uL (1.5-4.5); LYMPH % 7.7 % (24.0-44.0); MEAN CORPUSCULAR HGB CONC 31.8 g/dl (32.0-36.5); MEAN CORPUSCULAR VOLUME 91.4 fl (80.0-96.0); MONO # 1.3 10^3/uL (0.0-0.8); MONO % 9.1 % (0.0-5.0); NEUTROPHILS % 80.1 % (36.0-66.0); PLATELET COUNT, AUTOMATED 526 10^3/uL (150-450); RED BLOOD COUNT 3.03 10^6/uL (4.00-5.40); WHITE BLOOD COUNT 13.7 10^3/uL (4.0-10.0)
[2018-10-28 07:12] LABS: ALBUMIN 2.2 GM/DL (3.2-5.2); ALT/SGPT 26 U/L (12-78); BILIRUBIN,TOTAL 0.4 MG/DL (0.2-1.0); BLOOD UREA NITROGEN 11 MG/DL (7-18); CALCIUM LEVEL 8.6 MG/DL (8.8-10.2); CARBON DIOXIDE LEVEL 42 MEQ/L (21-32); CHLORIDE LEVEL 88 MEQ/L (98-107); CREATININE FOR GFR 0.48 MG/DL (0.55-1.30); GLOMERULAR FILTRATION RATE > 60.0 (>32); GLUCOSE, FASTING 77 MG/DL (70-100); POTASSIUM SERUM 3.3 MEQ/L (3.5-5.1); SODIUM LEVEL 132 MEQ/L (136-145); TOTAL PROTEIN 5.6 GM/DL (6.4-8.2)
[2018-10-28] MEDS: SYMBICORT 160/4.5MCG INHALER 6GM INH SCH ×2 (08:05→19:26)
[2018-10-28] MEDS: TIOTROPIUM INHALER/CAPSULE (SPIRIVA) INH SCH (08:05)
[2018-10-28] MEDS ORDERED: POTASSIUM CHLORIDE 10 MEQ SR TABLET PO SCH (09:00)
[2018-10-28] MEDS ORDERED: CLOPIDOGREL 75 MG TAB PO SCH (09:00)
[2018-10-28] MEDS: ASPIRIN 81 MG CHEW TABLET PO SCH (09:25)
[2018-10-28] MEDS: DOCUSATE SODIUM 100 MG CAP PO SCH ×2 (09:25→20:55)
[2018-10-28] MEDS: SIMETHICONE 80 MG CHEW TAB PO SCH ×3 (09:25→21:00)
[2018-10-28] MEDS: predniSONE 20 MG TAB PO SCH (09:25)
[2018-10-28] MEDS: CARVedilol 12.5 MG TAB PO SCH ×2 (09:25→20:54)
[2018-10-28] MEDS: PANTOPRAZOLE 40MG TAB (PROTONIX) PO SCH ×2 (09:25→20:52)
[2018-10-28] MEDS: FERROUS SULFATE 325MG TAB PO SCH ×2 (09:25→20:54)
[2018-10-28] MEDS: FUROSEMIDE 20 MG TAB PO SCH (09:26)
[2018-10-28] MEDS: LORATADINE 10 MG TAB PO SCH (09:26)
[2018-10-28] MEDS: CAPTOpril 3.125 MG PER 1/4 TABLET PO SCH ×2 (09:26→20:50)
--- NOTE | 2018-10-28 09:35 | IPNPDOC ---
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 REVIEW OF SYSTEMS: The following is a completed review of systems and has been reviewed. Review of systems otherwise unremarkable. PAIN: Patient self reports mild abdominal cramping EYES: Negative for recent vision changes EARS, NOSE, & THROAT: no dysphagia/rhinorrhea/hearing loss CARDIOVASCULAR: denies chest pain or palpitations PULMONARY: Negative. +exertional dyspnea (chronic) GASTROINTESTINAL: +lower abdominal cramping, no nausea/vomiting GENITOURINARY: no dysuria MUSCULOSKELETAL: weakness NEUROLOGICAL: no tremor/seizure activity HEMATOLOGICAL:+anemia SKIN: no rash PSYCHIATRIC: Unremarkable All other review of systems found to be negative. PHYSICAL EXAMINATION: VITAL SIGNS: Please see below. GENERAL: Pleasant and cooperative. No acute distress, thin HEENT: PERRL. Extraocular movements intact. Clear conjunctiva CARDIOVASCULAR: Regular rate and rhythm. No murmurs, rubs, or gallops LUNGS: CTA, No wheeze/rhonchi ABDOMEN: Soft, nontender, nondistended. Positive bowel sounds. Normal active bowel sounds. NEUROLOGICAL: Alert and oriented times three. Cranial nerves II through XII grossly intact. Sensation grossly intact in all 4 extremities EXTREMITIES: 5-\\5 strength bilateral upper extremities. 5-\\5 strength right lower extremity. 5-/5 strength in left lower extremity. SKIN: atrophied skin, scattered ecchymosis, left breast incision healed ASSESSMENT:83-year-old F with past medical history of COPD on home 02 who presents status post hospital acquired PNA with new diagnosis of Afib and recent NSTEMI. PLAN: 1. Rehab: PT, OT, assess for DMEs, ambulating with RW 2. Neuro: stable. monitor for delirium 3. CArdiac: NSTEMI due to cardiac demand in setting of COPD exacerbation and pneumonia- c/u ASA-plavix was on hold for recent colonoscopy, Discussed with Dr. Hernandez this morning, ok to restart Plavix for cardioprotection and per Dr. Andrea's recs, will monitor for blood loss while on ARU, patient's recent colonoscopy positive for internal hemorrhoids which may have been source of last bleed -HTN c/u beta-olesya, and ADEN-I, and Lasix -HLD on Lipitor 4. resp: pmh COPD s/p recent hypercapneic, hypoxic respiratory failure, DNI, titrate 02 to 88-92%, c/u breathing treatments, +parainfluenza with PNA on last visit, repeat Resp panel negative, will d/c precautions, s/p Meropenem and Azithromycin, c/u breathing treatments and steroid taper- ID consulted, recs appreciated -recent Chest CT with lesions suspicious for malignancy, will have patient f/u with Pulmonology as outpatient 5. GI ppx:c/u Protonix BID given patient on steroid taper in setting of +FOBT and recent GI bleed -s/p colonoscopy 10/21/18 positive for diverticulosis and internal hemorrhoids, " Cecal polyp, polypectomy: Hyperplastic polyp...Sigmoid colon polyp, polypectomy: Fragments of tubular adenoma."- will need outpatient GI follow-up - c/u simethicone for abdominal bloating/cramping 6. DVT ppx: on full dose Lovenox- teds 7. Endo: thyroid US positive for mass, will refer to endocrinology as outpatient 8. : monitor PVRs, monitor for signs of UTI 9. Disp: TBD 10. DNR/DNI Allergies Coded Allergies: alendronate sodium (Unverified Allergy, Unknown, 10/08/18) amoxicillin (Unverified Allergy, Unknown, 10/08/18) atorvastatin (Unverified Allergy, Unknown, 10/08/18) ibandronate sodium (Unverified Allergy, Unknown, 10/08/18) levofloxacin (Unverified Allergy, Unknown, 10/08/18) quinine (Unverified Allergy, Unknown, 10/08/18) risedronate sodium (Unverified Allergy, Unknown, 10/08/18) Vital Signs Vital Signs Date Time Temp Pulse Resp B/P (MAP) Pulse Ox O2 Delivery O2 Flow Rate FiO2 10/28/18 09:26 151/70 10/28/18 09:25 78 10/28/18 05:31 98.8 18 99 2.5 Laboratory Data CBC/BMP Laboratory Tests 10/28/18 06:10 Red Blood Count 3.03 L, Mean Corpuscular Volume 91.4, Mean Corpuscular Hemoglobin 29.0, Mean Corpuscular Hemoglobin Concent 31.8 L, Red Cell Distribution Width 13.0, Neutrophils (%) (Auto) 80.1 H, Lymphocytes (%) (Auto) 7.7 L, Monocytes (%) (Auto) 9.1 H, Eosinophils (%) (Auto) 1.8, Basophils (%) (Auto) 0.2, Neutrophils # (Auto) 11.0 H, Lymphocytes # (Auto) 1.1 L, Monocytes # (Auto) 1.3 H, Eosinophils # (Auto) 0.3, Basophils # (Auto) 0.0, Calcium Level 8.6 L, Aspartate Amino Transf (AST/SGOT) 24, Alanine Aminotransferase (ALT/SGPT) 26, Alkaline Phosphatase 82, Total Bilirubin 0.4, Total Protein 5.6 L, Albumin 2.2 L Labs 24H Laboratory Tests 2 10/28/18 06:10: Immature Granulocyte % (Auto) 1.1, White Blood Count 13.7H, Red Blood Count 3.03L, Hemoglobin 8.8L, Hematocrit 27.7L, Mean Corpuscular Volume 91.4, Mean Corpuscular Hemoglobin 29.0, Mean Corpuscular Hemoglobin Concent 31.8L, Red Cell Distribution Width 13.0, Platelet Count 526H, Neutrophils (%) (Auto) 80.1H, Lymphocytes (%) (Auto) 7.7L, Monocytes (%) (Auto) 9.1H, Eosinophils (%) (Auto) 1.8, Basophils (%) (Auto) 0.2, Neutrophils # (Auto) 11.0H, Lymphocytes # (Auto) 1.1L, Monocytes # (Auto) 1.3H, Eosinophils # (Auto) 0.3, Basophils # (Auto) 0.0, Nucleated Red Blood Cells % (auto) 0.0, Anion Gap 2L, Glomerular Filtration Rate > 60.0, Blood Urea Nitrogen 11, Creatinine 0.48L, Sodium Level 132L, Potassium Level 3.3L, Chloride Level 88L, Carbon Dioxide Level 42H, Calcium Level 8.6L, Aspartate Amino Transf (AST/SGOT) 24, Alanine Aminotransferase (ALT/SGPT) 26, Alkaline Phosphatase 82, Total Bilirubin 0.4, Total Protein 5.6L, Albumin 2.2L, Albumin/Globulin Ratio 0.65L Current Medications Current Medications Current Medications Acetaminophen (Tylenol Tab) 650 mg Q4HP PRN PO MILD PAIN (PS 1-4) Last administered on 10/28/18 00:03; Start 10/27/18 at 14:30 Albuterol/ Ipratropium (Duoneb (Ipr 0.5mg/Alb 2.5mg)) 3 ml Q4HP PRN NEB SOB/WHEEZING Last administered on 10/27/18 15:49; Start 10/27/18 at 14:30 Aspirin (Aspirin Chewable) 81 mg DAILY PO Last administered on 10/28/18 09:25; Start 10/28/18 at 09:00 Atorvastatin Calcium (Lipitor) 10 mg QHS PO Last administered on 10/27/18 21:42; Start 10/27/18 at 21:00 Budesonide/ Formoterol Fumarate (Symbicort 160/ 4.5mcg) 2 puff BID INH Last administered on 10/28/18 08:05; Start 10/27/18 at 21:00 Captopril (CAPOten) 3.125 mg BID PO Last administered on 10/28/18 09:26; Start 10/27/18 at 21:00 Carvedilol (COReg) 25 mg BID PO Last administered on 10/28/18 09:25; Start 10/27/18 at 21:00 Clopidogrel Bisulfate (PLAVix) 75 mg DAILY PO ; Start 10/28/18 at 09:00; Stop 10/28/18 at 09:00; Status DC Docusate Sodium (Colace) 100 mg BID PO Last administered on 10/28/18 09:25; Start 10/27/18 at 21:00 Ferrous Sulfate (Ferrous Sulfate) 325 mg BID PO Last administered on 10/28/18 09:25; Start 10/27/18 at 21:00 Formoterol Fumarate (Perforomist) 20 mcg RBID INH ; Start 10/27/18 at 20:00; Stop 10/27/18 at 20:00; Status DC Furosemide (Lasix) 20 mg DAILY PO Last administered on 10/28/18 09:26; Start 10/28/18 at 09:00 Levalbuterol HCl (Xopenex Neb) 1.25 mg RQ4H INH Last administered on 10/28/18 04:02; Start 10/27/18 at 16:00 Loratadine (Claritin) 10 mg DAILY PO Last administered on 10/28/18 09:26; Start 10/28/18 at 09:00 Magnesium Hydroxide (Milk Of Magnesia) 30 ml DAILYPRN PRN PO CONSTIPATION; Start 10/27/18 at 14:30 Nitroglycerin (Nitrostat (1/ 200)) 0.3 mg Q5MP PRN SL CHEST PAIN; Start 10/27/18 at 14:30 Ondansetron HCl (Zofran) 4 mg Q6HP PRN PO NAUSEA; Start 10/27/18 at 14:30 Pantoprazole Sodium (Protonix) 40 mg BID PO Last administered on 10/28/18 09:25; Start 10/27/18 at 21:00 Potassium Chloride (Micro-K Extencaps) 40 meq DAILY PO Last administered on 10/28/18 09:26; Start 10/28/18 at 09:00 Prednisone (Deltasone) 20 mg QAM PO Last administered on 10/28/18 09:25; Start 10/28/18 at 09:00 Senna (Senokot) 1 tab QHS PO ; Start 10/27/18 at 21:00 Simethicone (Mylicon) 80 mg TID PO Last administered on 10/28/18 09:25; Start 10/27/18 at 16:00 Tiotropium [place] (Spiriva Handihaler) 1 inhalation DAILY@08 INH Last administered on 10/28/18 08:05; Start 10/28/18 at 08:00 A-FIB/CHADSVASC A-FIB History Current/History of A-Fib/PAF?: No MELISA OCHOA MD October 28, 2018 09:35
[2018-10-28] MEDS: CLOPIDOGREL 75 MG TAB PO SCH (13:17)
--- NOTE | 2018-10-28 13:51 | IPN ---
DATE: 10/28/2018 SUBJECTIVE: Patient is seen and examined in the room today. Patient stated her breathing is at her baseline. Nor worsening or improvement of breathing noted. Denies any fever or chills. Denied any active bleeding. Patient states her energy level is better than yesterday. OBJECTIVE: VITAL SIGNS: Temperature 98.8, pulse 78, respirations 18, blood pressure 151/70, pulse ox 99% with 2 liters oxygen. GENERAL: No sign of acute distress. Alert, awake, comfortable. HEENT: Normocephalic, atraumatic. Extraocular muscles grossly intact. CARDIOVASCULAR: Distant heart sounds. Positive S1, S2. Regular rate. LUNGS: Diminished breath sounds. No significant crackles appreciated. Poor aeration. Mild end-tidal expiratory wheezes. GI: Abdomen soft, nontender. Bowel sounds are present. EXTREMITIES: Mild lower extremity edema. LABORATORY DATA: WBC 13.7, hemoglobin 8.8, hematocrit 27.7, platelet count 526. Sodium 132, potassium 3.3, chloride 88, carbon dioxide 42, BUN 11, creatinine 0.48, GFR greater than 60, fasting glucose is 77, calcium 8.6, total bilirubin 0.4, AST 24, ALT 26, alkaline phosphatase 82, total protein 5.6, albumin 2.2. ASSESSMENT/PLAN: 1. Physical deconditioning: Patient continues rehabilitation in the acute rehabilitation unit (ARU). Diet, activity level, pain control anticoagulation per ARU recommendations. 2. Acute on chronic hypoxia respiratory failure: At baseline, patient has end-stage chronic obstructive pulmonary disease (COPD). The patient previously was treated for parainfluenza virus infection, hospital acquired pneumonia and possible aspiration pneumonia. The patient finished a course of antibiotics. The patient also had pulmonary hypertension. Currently, patient is on diuretics, nebulizer treatments. The patient finished a course of antibiotics previously. Patient was evaluated by infectious disease. Per recommendation, there is no role for antibiotics at this moment unless there are clinical deterioration. 3. Non-ST elevation myocardial infarction (NSTEMI): Previously had a gastrointestinal bleed. Colonoscopy was performed. Patient is to continue aspirin, statin, and carvedilol. Patient had a colonoscopy performed by Dr. Smith on 10/21/2018. Per recommendation, aspirin and Plavix can be resumed one week after the procedure. Patient's Plavix is restarted. 4. Leukocytosis: Patient was being treated for infection. Leukocytosis is improving. No role for antibiotics at this time. 5. History of sinus tachycardia, on beta blockers. 6. Hypertension: On diuretic and carvedilol, captopril. 7. History of breast cancer: Status post lumpectomy. 8. Bilateral thyroid nodule, empirical nodule and palpated mass. There is concern for malignancy. Patient had a colonoscopy 10/21/2018. No intrinsic colonic mass noted at that time. Recommend patient have close outpatient followup. 9. Deep venous thrombosis (DVT) prophylaxis: Per rehabilitation recommendations.
[2018-10-28 14:00] VITALS: BP 130/76
[2018-10-28 20:00] VITALS: BP 135/70
[2018-10-28] MEDS: POTASSIUM CHLORIDE 10 MEQ SR TABLET PO SCH (20:51)
[2018-10-28] MEDS: ATORVASTATIN 10 MG TAB PO SCH (20:52)
[2018-10-28] MEDS: SENNA 8.6 MG TAB (SENOKOT) PO SCH (20:55)
[2018-10-28] MEDS: SALIVA SUBSTITUTE(MOUTHKOTE) BTL MT SCH (20:55)
[2018-10-29] MEDS: LEVALBUTEROL 1.25 MG/0.5 ML CONCENTRATE NEB INH SCH ×6 (04:00→23:10)
[2018-10-29 06:00] VITALS: BP 150/75
[2018-10-29 06:48] LABS: BLOOD UREA NITROGEN 8 MG/DL (7-18); CALCIUM LEVEL 8.4 MG/DL (8.8-10.2); CARBON DIOXIDE LEVEL 39 MEQ/L (21-32); CHLORIDE LEVEL 92 MEQ/L (98-107); GLOMERULAR FILTRATION RATE > 60.0 (>32); GLUCOSE, FASTING 86 MG/DL (70-100); POTASSIUM SERUM 4.2 MEQ/L (3.5-5.1); SODIUM LEVEL 134 MEQ/L (136-145)
[2018-10-29] MEDS: TIOTROPIUM INHALER/CAPSULE (SPIRIVA) INH SCH (07:11)
[2018-10-29] MEDS: SYMBICORT 160/4.5MCG INHALER 6GM INH SCH ×2 (07:11→19:53)
--- NOTE | 2018-10-29 07:44 | IPNPDOC ---
Subjective Date Seen The patient was seen on 10/29/18. Subjective Chief Complaint/HPI ARU patient, Debility Events since last encounter Denies c/o today. Oxygenation remains at baseline. participating in therapy. Constitutional: Denies: Chills, Fever, Night Sweats Pulmonary: Reports: Dyspnea (chronic at baseline) Cardiovascular: Reports: Edema; Denies: Chest Pain, Palpitations, Orthopnea, Paroxysmal Noc. Dyspnea, Lt Headedness Genitourinary: Denies: Dysuria, Frequency, Incontinence, Retention Objective Physical Examination General Exam: Positive: Alert, No Acute Distress Neck Exam: Positive: Supple; Negative: JVD, thyromegaly Chest Exam: Positive: Clear to auscultation, Normal air movement Heart Exam: Positive: Rate Normal, Regular Rhythm, Normal S1, Normal S2; Negative: Murmurs, Rubs Abdomen Exam: Positive: Normal bowel sounds, Soft; Negative: Tenderness, Hepatospenomegaly Extremity Exam: Positive: Edema (BLE) Skin Exam: Positive: Nl turgor and temperature Psych Exam: Positive: Mental status NL, Oriented x 3 A-FIB/CHADSVASC A-FIB History Current/History of A-Fib/PAF?: No Assessment /Plan Problems (1) COPD (chronic obstructive pulmonary disease) Status: Chronic Problem Text: Placed on Prednisone 20 mg po daily by ARU provider. Oxygenation is at baseline. (2) Thyroid nodule Status: Acute Problem Text: will nee f/u as an outpatient with PCP: Dr. Baker in [place] (3) Leukocytosis Status: Chronic Problem Text: Leukocytosis noted, ID recommending following levels, see consult note. CBC due on 11/01. (4) NSTEMI (non-ST elevated myocardial infarction) Problem Text: Occurred during recent acute hospitalization. Continue Plavix, Atorvastatin, and Aspirin 81 mg po daily. (5) Pneumonia Status: Resolved Problem Text: Monitor for signs of recurrence. Remains afebrile. (6) HTN (hypertension) Status: Chronic Problem Text: Continue Captopril and Carvedilol. Stable. Plan/VTE VTE Prophylaxis Ordered?: Yes (Plavix, ASA) VS, I&O, 24H, Fishbone Vital Signs/I&O Vital Signs Date Time Temp Pulse Resp B/P (MAP) Pulse Ox O2 Delivery O2 Flow Rate FiO2 10/29/18 06:00 97.0 89 18 150/75 (100) 97 2.5 10/28/18 23:36 Nasal Cannula I&O- Last 24 Hours up to 6 AM 10/29/18 06:00 Intake Total 1260 ml Output Total 2100 ml Balance -840 ml Laboratory Data 24H LABS Laboratory Tests 2 10/29/18 06:13: Anion Gap 3L, Glomerular Filtration Rate > 60.0, Blood Urea Nitrogen 8, Creatinine 0.50L, Sodium Level 134L, Potassium Level 4.2#, Chloride Level 92L, Carbon Dioxide Level 39H, Calcium Level 8.4L CBC/BMP Laboratory Tests 10/29/18 06:13 Calcium Level 8.4 L Dania Mariano [facility] October 29, 2018 07:44
[2018-10-29] MEDS: DOCUSATE SODIUM 100 MG CAP PO SCH ×2 (08:17→21:28)
[2018-10-29] MEDS: SIMETHICONE 80 MG CHEW TAB PO SCH ×3 (08:17→21:28)
[2018-10-29] MEDS: predniSONE 20 MG TAB PO SCH (08:17)
[2018-10-29] MEDS: FERROUS SULFATE 325MG TAB PO SCH ×2 (08:17→21:28)
[2018-10-29] MEDS: LORATADINE 10 MG TAB PO SCH (08:17)
[2018-10-29] MEDS: ASPIRIN 81 MG CHEW TABLET PO SCH (08:17)
[2018-10-29] MEDS: PANTOPRAZOLE 40MG TAB (PROTONIX) PO SCH ×2 (08:17→21:28)
[2018-10-29] MEDS: CLOPIDOGREL 75 MG TAB PO SCH (08:18)
[2018-10-29] MEDS: CAPTOpril 3.125 MG PER 1/4 TABLET PO SCH ×2 (08:18→21:28)
[2018-10-29] MEDS: CARVedilol 12.5 MG TAB PO SCH ×2 (08:18→21:28)
[2018-10-29] MEDS: POTASSIUM CHLORIDE 10 MEQ SR TABLET PO SCH ×2 (08:19→21:29)
[2018-10-29] MEDS: FUROSEMIDE 20 MG TAB PO SCH (08:19)
[2018-10-29] MEDS: SALIVA SUBSTITUTE(MOUTHKOTE) BTL MT SCH ×3 (08:20→21:33)
--- NOTE | 2018-10-29 12:26 | IPN ---
DATE: 10/28/2018 Madeline seems to be doing much better. She is back in acute rehabilitation. She has chronic shortness of breath. She is debilitated and is having difficulty with walking more than 15 feet, but otherwise feels good. No nausea, vomiting or diarrhea. No abdominal pain, fever or chills. On physical examination, temperature 98.5, pulse 87, respirations 18, blood pressure 135/70, O2 sat 97% on 2.5 liters. She desaturated to 85% with exertion. Laboratories: White count 17.9, hemoglobin 9.4, hematocrit 29.5, platelets 549, 85% neutrophils, 5% lymphocytes, 7% monocytes. Sodium 132, potassium 3.3, chloride 88, bicarb 42, BUN 11, creatinine 0.48, glucose 77, calcium 8.6. Procalcitonin was 0.1. Heart: Normal S1 and S2, distant. Lungs: Diminished breath sounds, but better air entry. Abdomen is soft, nontender. No hepatosplenomegaly. Extremities: No edema. IMPRESSION: Pneumococcal pneumonia and possibly parainfluenza viral pneumonia. The patient finished a 12-day course of IV meropenem and oral Zithromax. She has severe chronic obstructive pulmonary disease (COPD) and is quite decompensated with debility and difficulty with shortness of breath. Her procalcitonin is back to normal and there is no need for further antibiotics. PLAN: Agree with continued rehab. The patient's oxygen is at 1.5 liters at rest, but with exertion the patient needs at least 2.5 liters. She usually has a 3.5 liters at home at baseline 24 hours a day. Infectious disease is signing off. Thank you for consultation.
[2018-10-29 14:00] VITALS: BP 162/70
[2018-10-29 20:00] VITALS: BP 168/64
[2018-10-29] MEDS: ATORVASTATIN 10 MG TAB PO SCH (21:27)
[2018-10-29] MEDS: SENNA 8.6 MG TAB (SENOKOT) PO SCH (21:28)
[2018-10-29] MEDS: ACETAMINOPHEN TAB 650MG DOSE (2X325MG) PO PRN (21:32)
[2018-10-30] MEDS: LEVALBUTEROL 1.25 MG/0.5 ML CONCENTRATE NEB INH SCH ×5 (03:14→20:06)
[2018-10-30 06:00] VITALS: BP 151/70
[2018-10-30] MEDS: TIOTROPIUM INHALER/CAPSULE (SPIRIVA) INH SCH (08:54)
[2018-10-30] MEDS: SYMBICORT 160/4.5MCG INHALER 6GM INH SCH ×2 (08:54→21:00)
[2018-10-30] MEDS: SALIVA SUBSTITUTE(MOUTHKOTE) BTL MT SCH ×3 (09:00→20:07)
[2018-10-30] MEDS: CLOPIDOGREL 75 MG TAB PO SCH (09:15)
[2018-10-30] MEDS: FERROUS SULFATE 325MG TAB PO SCH ×2 (09:15→20:06)
[2018-10-30] MEDS: SIMETHICONE 80 MG CHEW TAB PO SCH ×3 (09:15→20:05)
[2018-10-30] MEDS: PANTOPRAZOLE 40MG TAB (PROTONIX) PO SCH ×2 (09:15→20:06)
[2018-10-30] MEDS: CAPTOpril 3.125 MG PER 1/4 TABLET PO SCH ×2 (09:15→20:06)
[2018-10-30] MEDS: ASPIRIN 81 MG CHEW TABLET PO SCH (09:16)
[2018-10-30] MEDS: CARVedilol 12.5 MG TAB PO SCH ×2 (09:16→20:06)
[2018-10-30] MEDS: FUROSEMIDE 20 MG TAB PO SCH (09:16)
[2018-10-30] MEDS: DOCUSATE SODIUM 100 MG CAP PO SCH ×2 (09:16→20:07)
[2018-10-30] MEDS: LORATADINE 10 MG TAB PO SCH (09:16)
[2018-10-30] MEDS: predniSONE 20 MG TAB PO SCH (09:16)
[2018-10-30] MEDS: POTASSIUM CHLORIDE 10 MEQ SR TABLET PO SCH ×2 (09:17→20:06)
--- NOTE | 2018-10-30 11:59 | IPNPDOC ---
Subjective Date Seen The patient was seen on 10/30/18. Subjective Chief Complaint/HPI Says her SOB is a little worse than yesterday and also says that her legs are swollen more. No fever or chills. Working with PT. Events since last encounter In [facility] it was felt she was in A fib . I personally reviewed all her available ekgs done in our hospital all show sinus rhythm or sinus tachycardia with PACs in some as per my interpretation. Objective Physical Examination General Exam: Positive: Alert, No Acute Distress ENT Exam: Positive: Atraumatic, Tongue Midline Neck Exam: Positive: Supple; Negative: JVD, thyromegaly Chest Exam: Positive: Rales (coarse crackles both bases more on the left. ), Diminished Heart Exam: Positive: Rate Normal, Regular Rhythm, Normal S1, Normal S2; Negative: Murmurs, Rubs Abdomen Exam: Positive: Normal bowel sounds, Soft; Negative: Tenderness, Hepatospenomegaly Extremity Exam: Positive: Edema (left> right) Skin Exam: Positive: Nl turgor and temperature Neuro Exam: Positive: Normal Speech Psych Exam: Positive: Mental status NL, Oriented x 3 Assessment /Plan Problems (1) Chronic respiratory failure with hypoxia and hypercapnia Status: Chronic Problem Text: continue oxygen supplementation (2) COPD (chronic obstructive pulmonary disease) Status: Chronic Problem Text: Advanced Placed on Prednisone 20 mg po daily by ARU provider. Oxygenation is at baseline. Continue symbicort and spiriva will give 1 extra dose of lasix (3) Thyroid nodule Status: Acute Problem Text: will nee f/u as an outpatient with PCP: Dr. Baker in [place] (4) Leukocytosis Status: Chronic Problem Text: Leukocytosis noted, ID recommending following levels, see consult note. CBC due on 11/01. (5) NSTEMI (non-ST elevated myocardial infarction) Problem Text: Occurred during recent acute hospitalization. Continue Plavix, Atorvastatin, and Aspirin 81 mg po daily. (6) Pneumonia Status: Resolved Problem Text: Pneumococcal pneumonia with possibly parainfluenza pneumonia finished 12 day course of meropenem and azithromycin (7) HTN (hypertension) Status: Chronic Problem Text: Continue Captopril and Carvedilol. Stable. (8) Pulmonary hypertension Status: Chronic (9) Parainfluenza virus pneumonia Status: Resolved Plan/VTE VTE Prophylaxis Ordered?: Yes (Plavix, ASA) VS, I&O, 24H, Fishbone Vital Signs/I&O Vital Signs Date Time Temp Pulse Resp B/P (MAP) Pulse Ox O2 Delivery O2 Flow Rate FiO2 10/30/18 10:31 2.0 10/30/18 09:16 78 151/70 10/30/18 06:00 98.7 19 96 10/28/18 23:36 Nasal Cannula I&O- Last 24 Hours up to 6 AM 10/30/18 06:00 Intake Total 960 ml Output Total 1150 ml Balance -190 ml OPAL LANGSTON MD October 30, 2018 11:53
[2018-10-30] MEDS ORDERED: FUROSEMIDE 20 MG TAB PO ONE (12:00)
[2018-10-30 14:00] VITALS: BP 134/70
[2018-10-30] MEDS: ACETAMINOPHEN TAB 650MG DOSE (2X325MG) PO PRN (18:44)
[2018-10-30 19:54] VITALS: BP 156/80
[2018-10-30] MEDS: ATORVASTATIN 10 MG TAB PO SCH (20:05)
[2018-10-30] MEDS: SENNA 8.6 MG TAB (SENOKOT) PO SCH (20:05)
[2018-10-31] MEDS: LEVALBUTEROL 1.25 MG/0.5 ML CONCENTRATE NEB INH SCH ×8 (00:06→23:12)
[2018-10-31 05:13] VITALS: BP 160/78
[2018-10-31] MEDS: ACETAMINOPHEN TAB 650MG DOSE (2X325MG) PO PRN (05:20)
[2018-10-31] MEDS: DOCUSATE SODIUM 100 MG CAP PO SCH ×2 (08:55→20:07)
[2018-10-31] MEDS: CARVedilol 12.5 MG TAB PO SCH ×2 (08:56→20:07)
[2018-10-31] MEDS: FERROUS SULFATE 325MG TAB PO SCH ×2 (08:56→20:07)
[2018-10-31] MEDS: LORATADINE 10 MG TAB PO SCH (08:56)
[2018-10-31] MEDS: SIMETHICONE 80 MG CHEW TAB PO SCH ×3 (08:56→20:06)
[2018-10-31] MEDS: PANTOPRAZOLE 40MG TAB (PROTONIX) PO SCH ×2 (08:56→20:07)
[2018-10-31] MEDS: TIOTROPIUM INHALER/CAPSULE (SPIRIVA) INH SCH (08:56)
[2018-10-31] MEDS: CAPTOpril 3.125 MG PER 1/4 TABLET PO SCH ×2 (08:56→20:07)
[2018-10-31] MEDS: predniSONE 20 MG TAB PO SCH (08:57)
[2018-10-31] MEDS: CLOPIDOGREL 75 MG TAB PO SCH (08:57)
[2018-10-31] MEDS: FUROSEMIDE 20 MG TAB PO SCH (08:57)
[2018-10-31] MEDS: ASPIRIN 81 MG CHEW TABLET PO SCH (08:57)
[2018-10-31] MEDS: POTASSIUM CHLORIDE 10 MEQ SR TABLET PO SCH ×2 (08:57→20:07)
[2018-10-31] MEDS: SALIVA SUBSTITUTE(MOUTHKOTE) BTL MT SCH ×3 (08:58→20:11)
[2018-10-31] MEDS: SYMBICORT 160/4.5MCG INHALER 6GM INH SCH ×2 (09:07→19:49)
--- NOTE | 2018-10-31 11:05 | IPNPDOC ---
Subjective Date Seen The patient was seen on 10/31/18. Subjective Chief Complaint/HPI Says did not sleep well last night . her hip was bothering her which is not new. Says cannot sleep in one position for too long then it gets very stiff but here everytime she would try to move or turn the buzzer would go off that disturbed her sleep. Her breathing is as usual . Working with PT. Objective Physical Examination General Exam: Positive: Alert, No Acute Distress ENT Exam: Positive: Atraumatic, Tongue Midline Neck Exam: Positive: Supple; Negative: JVD, thyromegaly Chest Exam: Positive: Rales (coarse crackles both bases more on the left. ), Diminished Heart Exam: Positive: Rate Normal, Regular Rhythm, Normal S1, Normal S2; Negative: Murmurs, Rubs Abdomen Exam: Positive: Normal bowel sounds, Soft; Negative: Tenderness, Hepatospenomegaly Extremity Exam: Positive: Edema (left> right) Skin Exam: Positive: Nl turgor and temperature Neuro Exam: Positive: Normal Speech Psych Exam: Positive: Mental status NL, Oriented x 3 Assessment /Plan Problems (1) Chronic respiratory failure with hypoxia and hypercapnia Status: Chronic Problem Text: continue oxygen supplementation (2) COPD (chronic obstructive pulmonary disease) Status: Chronic Problem Text: Advanced Placed on Prednisone 20 mg po daily by ARU provider. Oxygenation is at baseline. Continue symbicort and spiriva will give 1 extra dose of lasix (3) Thyroid nodule Status: Acute Problem Text: will nee f/u as an outpatient with PCP: Dr. Baker in [place] (4) Leukocytosis Status: Chronic Problem Text: Leukocytosis noted, ID recommending following levels, see consult note. CBC due on 11/01. (5) NSTEMI (non-ST elevated myocardial infarction) Problem Text: Occurred during recent acute hospitalization. Continue Plavix, Atorvastatin, and Aspirin 81 mg po daily. (6) Pneumonia Status: Resolved Problem Text: Pneumococcal pneumonia with possibly parainfluenza pneumonia finished 12 day course of meropenem and azithromycin (7) HTN (hypertension) Status: Chronic Problem Text: Continue Captopril and Carvedilol. Stable. (8) Pulmonary hypertension Status: Chronic (9) Parainfluenza virus pneumonia Status: Resolved Plan/VTE VTE Prophylaxis Ordered?: Yes (Plavix, ASA) VS, I&O, 24H, Fishbone Vital Signs/I&O Vital Signs Date Time Temp Pulse Resp B/P (MAP) Pulse Ox O2 Delivery O2 Flow Rate FiO2 10/31/18 09:29 2.0 10/31/18 08:56 86 160/78 10/31/18 05:13 98.5 18 98 10/28/18 23:36 Nasal Cannula I&O- Last 24 Hours up to 6 AM 10/31/18 06:00 Intake Total 740 ml Output Total 600 ml Balance 140 ml OPAL LANGSTON MD October 31, 2018 11:05
[2018-10-31 14:00] VITALS: BP 125/75
[2018-10-31] MEDS ORDERED: FUROSEMIDE 20 MG TAB PO ONE (15:00)
[2018-10-31 20:00] VITALS: BP 145/68
[2018-10-31] MEDS: ATORVASTATIN 10 MG TAB PO SCH (20:07)
[2018-10-31] MEDS: SENNA 8.6 MG TAB (SENOKOT) PO SCH (20:07)
[2018-11-01] MEDS: LEVALBUTEROL 1.25 MG/0.5 ML CONCENTRATE NEB INH SCH ×5 (04:15→20:00)
[2018-11-01 06:00] VITALS: BP 120/73
[2018-11-01 06:23] LABS: HEMATOCRIT 24.3 % (36.0-47.0); HEMOGLOBIN 7.6 g/dl (12.0-15.5); MEAN CORPUSCULAR HEMOGLOBIN 29.8 pg (27.0-33.0); MEAN CORPUSCULAR HGB CONC 31.3 g/dl (32.0-36.5); MEAN CORPUSCULAR VOLUME 95.3 fl (80.0-96.0); PLATELET COUNT, AUTOMATED 594 10^3/uL (150-450); RED BLOOD COUNT 2.55 10^6/uL (4.00-5.40); WHITE BLOOD COUNT 18.1 10^3/uL (4.0-10.0)
[2018-11-01 06:42] LABS: BLOOD UREA NITROGEN 11 MG/DL (7-18); CALCIUM LEVEL 9.1 MG/DL (8.8-10.2); CARBON DIOXIDE LEVEL 36 MEQ/L (21-32); CHLORIDE LEVEL 95 MEQ/L (98-107); CREATININE FOR GFR 0.64 MG/DL (0.55-1.30); GLOMERULAR FILTRATION RATE > 60.0 (>32); GLUCOSE, FASTING 83 MG/DL (70-100); SODIUM LEVEL 135 MEQ/L (136-145)
[2018-11-01 06:56] LABS: ANISOCYTOSIS 1+; ATYPICAL LYMPH 1 % (0-5); EOSINOPHILS 1 % (0-5); LYMPHOCYTES 8 % (16-52); MONOCYTES 6 % (0-8); NEUTROPHILS 83 % (35-75); PLATELET ESTIMATE INCREASED (NORMAL)
[2018-11-01] MEDS: SYMBICORT 160/4.5MCG INHALER 6GM INH SCH ×2 (07:34→20:31)
[2018-11-01] MEDS: TIOTROPIUM INHALER/CAPSULE (SPIRIVA) INH SCH (07:34)
[2018-11-01] MEDS: LORATADINE 10 MG TAB PO SCH (08:59)
[2018-11-01] MEDS: ASPIRIN 81 MG CHEW TABLET PO SCH (09:00)
[2018-11-01] MEDS: PANTOPRAZOLE 40MG TAB (PROTONIX) PO SCH ×2 (09:00→21:02)
[2018-11-01] MEDS: SIMETHICONE 80 MG CHEW TAB PO SCH ×3 (09:00→21:01)
[2018-11-01] MEDS: CAPTOpril 3.125 MG PER 1/4 TABLET PO SCH ×2 (09:00→21:02)
[2018-11-01] MEDS: CLOPIDOGREL 75 MG TAB PO SCH (09:00)
[2018-11-01] MEDS: FUROSEMIDE 20 MG TAB PO SCH (09:00)
[2018-11-01] MEDS: predniSONE 20 MG TAB PO SCH (09:00)
[2018-11-01] MEDS: CARVedilol 12.5 MG TAB PO SCH ×2 (09:01→21:02)
[2018-11-01] MEDS: SALIVA SUBSTITUTE(MOUTHKOTE) BTL MT SCH ×3 (09:01→21:03)
[2018-11-01] MEDS: FERROUS SULFATE 325MG TAB PO SCH ×2 (09:01→21:02)
[2018-11-01] MEDS: DOCUSATE SODIUM 100 MG CAP PO SCH ×2 (09:01→21:02)
--- NOTE | 2018-11-01 11:12 | IPNPDOC ---
PM&R Progress Note DATE OF SERVICE: November 01, 2018 [employer] Progress Note Subjective: Patient agreed to stay one more day to determine if her blood count dropped while on Plavix. She reports feeling well overall and has energy for therapy. Sh e was instructed to keep her legs elevated when not in therapy. REVIEW OF SYSTEMS: The following is a completed review of systems and has been reviewed. Review of systems otherwise unremarkable. PAIN: Patient self reports mild abdominal cramping EYES: Negative for recent vision changes EARS, NOSE, & THROAT: no dysphagia/rhinorrhea/hearing loss CARDIOVASCULAR: denies chest pain or palpitations PULMONARY: Negative. +exertional dyspnea (chronic) GASTROINTESTINAL: +lower abdominal cramping, no nausea/vomiting GENITOURINARY: no dysuria MUSCULOSKELETAL: weakness NEUROLOGICAL: no tremor/seizure activity HEMATOLOGICAL:+anemia SKIN: no rash PSYCHIATRIC: Unremarkable All other review of systems found to be negative. PHYSICAL EXAMINATION: VITAL SIGNS: Please see below. GENERAL: Pleasant and cooperative. No acute distress, thin HEENT: PERRL. Extraocular movements intact. Clear conjunctiva CARDIOVASCULAR: Regular rate and rhythm. No murmurs, rubs, or gallops LUNGS: CTA, No wheeze/rhonchi ABDOMEN: Soft, nontender, nondistended. Positive bowel sounds. Normal active bowel sounds. NEUROLOGICAL: Alert and oriented times three. Cranial nerves II through XII grossly intact. Sensation grossly intact in all 4 extremities EXTREMITIES: 5-\\5 strength bilateral upper extremities. 5-\\5 strength right lower extremity. 5-/5 strength in left lower extremity. bilat LE edema SKIN: atrophied skin, scattered ecchymosis, left breast incision healed ASSESSMENT:83-year-old F with past medical history of COPD on home 02 who presents status post hospital acquired PNA with new diagnosis of Afib and recent NSTEMI. PLAN: 1. Rehab: PT, OT, assess for DMEs, ambulating further with 4-wheeled RW 2. Neuro: stable. monitor for delirium 3. CArdiac: NSTEMI due to cardiac demand in setting of COPD exacerbation and pneumonia- c/u ASA-plavix was on hold for recent colonoscopy, Discussed with Dr. Hernandez this morning, ok to restart Plavix for cardioprotection and per Dr. Andrea's recs, will monitor for blood loss while on ARU, patient's recent colonoscopy positive for internal hemorrhoids which may have been source of last bleed -HTN c/u beta-olesya, and ADEN-I, and Lasix -HLD on Lipitor 4. resp: pmh COPD s/p recent hypercapneic, hypoxic respiratory failure, DNI, titrate 02 to 88-92%, c/u breathing treatments, +parainfluenza with PNA on last visit, repeat Resp panel negative, will d/c precautions, s/p Meropenem and Azithromycin, c/u breathing treatments and steroid taper- ID consulted, recs appreciated -recent Chest CT with lesions suspicious for malignancy, will have patient f/u with Pulmonology as outpatient 5. GI ppx:c/u Protonix BID given patient on steroid taper in setting of +FOBT and recent GI bleed -s/p colonoscopy 10/21/18 positive for diverticulosis and internal hemorrhoids, " Cecal polyp, polypectomy: Hyperplastic polyp...Sigmoid colon polyp, polypectomy: Fragments of tubular adenoma."- will need outpatient GI follow-up - c/u simethicone for abdominal bloating/cramping 6. DVT ppx: off full dose Lovenox- teds 7. Endo: thyroid US positive for mass, will defer follow-up to be decided by PMD at discharge 8. Heme: Hgb 7.6 today, will recheck tomorrow as patient not symptomatic and c/u Plavix, if still below 8 will transfuse 8. : monitor PVRs, monitor for signs of UTI 9. Disp: to home 11/02/18 with family 10. DNR/DNI Allergies Coded Allergies: alendronate sodium (Unverified Allergy, Unknown, 10/08/18) amoxicillin (Unverified Allergy, Unknown, 10/08/18) atorvastatin (Unverified Allergy, Unknown, 10/08/18) ibandronate sodium (Unverified Allergy, Unknown, 10/08/18) levofloxacin (Unverified Allergy, Unknown, 10/08/18) quinine (Unverified Allergy, Unknown, 10/08/18) risedronate sodium (Unverified Allergy, Unknown, 10/08/18) Vital Signs Vital Signs Date Time Temp Pulse Resp B/P (MAP) Pulse Ox O2 Delivery O2 Flow Rate FiO2 11/01/18 09:01 95 120/73 11/01/18 07:15 2.0 11/01/18 06:00 99.2 19 97 10/28/18 23:36 Nasal Cannula Laboratory Data CBC/BMP Laboratory Tests 11/01/18 06:02 Red Blood Count 2.55 L, Mean Corpuscular Volume 95.3, Mean Corpuscular Hemo globin 29.8, Mean Corpuscular Hemoglobin Concent 31.3 L, Red Cell Distribution Width 13.4, Calcium Level 9.1 Labs 24H Laboratory Tests 2 11/01/18 06:02: Nucleated Red Blood Cells % (auto) 0.0, Neutrophils 83H, Band Neutrophils 1, Lymphocytes (Manual) 8L, Monocytes (Manual) 6, Eosinophils (Manual) 1, Atypical Lymphocytes 1, Platelet Estimate INCREASED, Anisocytosis 1+, Anion Gap 4L, Glomerular Filtration Rate > 60.0, Blood Urea Nitrogen 11, Creatinine 0.64, Sodium Level 135L, Potassium Level 5.0, Chloride Level 95L, Carbon Dioxide Level 36H, Calcium Level 9.1 Current Medications Current Medications Current Medications Acetaminophen (Tylenol Tab) 650 mg Q4HP PRN PO MILD PAIN (PS 1-4) Last admini stered on 10/31/18 05:20; Start 10/27/18 at 14:30 Albuterol/ Ipratropium (Duoneb (Ipr 0.5mg/Alb 2.5mg)) 3 ml Q4HP PRN NEB SOB/WHEEZING Last administered on 10/27/18 15:49; Start 10/27/18 at 14:30 Aspirin (Aspirin Chewable) 81 mg DAILY PO Last administered on 11/01/18 09:00; Start 10/28/18 at 09:00 Atorvastatin Calcium (Lipitor) 10 mg QHS PO Last administered on 10/31/18 20:07; Start 10/27/18 at 21:00 Budesonide/ Formoterol Fumarate (Symbicort 160/ 4.5mcg) 2 puff BID INH Last administered on 11/01/18 07:34; Start 10/27/18 at 21:00 Captopril (CAPOten) 3.125 mg BID PO Last administered on 11/01/18 09:00; Start 10/27/18 at 21:00 Carvedilol (COReg) 25 mg BID PO Last administered on 11/01/18 09:01; Start 10/27/18 at 21:00 Clopidogrel Bisulfate (PLAVix) 75 mg DAILY PO ; Start 10/28/18 at 09:00; Stop 10/28/18 at 09:00; Status DC Clopidogrel Bisulfate (PLAVix) 75 mg DAILY PO Last administered on 11/01/18 09:00; Start 10/28/18 at 09:45 Docusate Sodium (Colace) 100 mg BID PO Last administered on 11/01/18 09:01; Start 10/27/18 at 21:00 Ferrous Sulfate (Ferrous Sulfate) 325 mg BID PO Last administered on 11/01/18 09:01; Start 10/27/18 at 21:00 Formoterol Fumarate (Perforomist) 20 mcg RBID INH ; Start 10/27/18 at 20:00; Stop 10/27/18 at 20:00; Status DC Furosemide (Lasix) 20 mg DAILY PO Last administered on 11/01/18 09:00; Start 10/28/18 at 09:00 Levalbuterol HCl (Xopenex Neb) 1.25 mg RQ4H INH Last administered on 11/01/18 04:15; Start 10/27/18 at 16:00 Loratadine (Claritin) 10 mg DAILY PO Last administered on 11/01/18 08:59; Start 10/28/18 at 09:00 Magnesium Hydroxide (Milk Of Magnesia) 30 ml DAILYPRN PRN PO CONSTIPATION; Start 10/27/18 at 14:30 Nitroglycerin (Nitrostat (1/ 200)) 0.3 mg Q5MP PRN SL CHEST PAIN; Start 10/27/18 at 14:30 Ondansetron HCl (Zofran) 4 mg Q6HP PRN PO NAUSEA; Start 10/27/18 at 14:30 Pantoprazole Sodium (Protonix) 40 mg BID PO Last administered on 11/01/18 09:00; Start 10/27/18 at 21:00 Potassium Chloride (Micro-K Extencaps) 40 meq BID PO Last administered on 10/31/18 20:07; Start 10/28/18 at 21:00; Stop 11/01/18 at 06:51; Status DC Potassium Chloride (Micro-K Extencaps) 40 meq DAILY PO ; Start 11/02/18 at 09:00 Potassium Chloride (Micro-K Extencaps) 40 meq DAILY PO Last administered on 10/28/18 09:26; Start 10/28/18 at 09:00; Stop 10/28/18 at 09:34; Status DC Prednisone (Deltasone) 20 mg QAM PO Last administered on 11/01/18 09:00; S tart 10/28/18 at 09:00 Saliva Substitute (Mouthkote) 2 sprays TID MT Last administered on 11/01/18 0 9:01; Start 10/28/18 at 21:00 Senna (Senokot) 1 tab QHS PO Last administered on 10/31/18 20:07; Start 10/27/18 at 21:00 Simethicone (Mylicon) 80 mg TID PO Last administered on 11/01/18 09:00; Start 10/27/18 at 16:00 Tiotropium [place] (Spiriva Handihaler) 1 inhalation DAILY@08 INH Last administered on 11/01/18 07:34; Start 10/28/18 at 08:00 A-FIB/CHADSVASC A-FIB History Current/History of A-Fib/PAF?: No MELISA OCHOA MD November 01, 2018 11:12
--- NOTE | 2018-11-01 12:15 | IPNPDOC ---
Subjective Date Seen The patient was seen on 11/01/18. Subjective Chief Complaint/HPI Patient is an 83-year-old female, past medical history significant for advanced COPD, oxygen dependent 24 hours at home, presenting to the hospital for shortness of breath. she was found to have parainfluenza infection with pneumonia. she was treated with meropenem and azithromycin and completed a course of antibiotic. subsequently she was discharged to inpatient rehabilitation unit for mobilization and strengthening prior to discharge home. Events since last encounter Patient has no complaints today. Evaluated during occupational therapy in the bathroom with therapist present. Still persistent with shortness of breath but currently at baseline. Objective Physical Examination Other physical findings GENERAL: cachetic appearing elderly female in NAD SKIN : Warm, dry intact HEENT: Atraumatic, normocephalic, PERRL, moist mucous membrane CV: regular rate and rhythm, BLE edema, distal pulses not palpable RESP: posterior end insp crackles, some accessory muscle use noted ABDOMEN: BS+ non distended non tender MS: no joint deformities NEURO: Alert and oriented x 3, CN2-12 grossly intact PSYCH: no anxiety or agitation, appropriate mood and affect. A-FIB/CHADSVASC A-FIB History Current/History of A-Fib/PAF?: Yes Treatment Treatment ordered: NONE Reason Anticoagulant not given: Current bleeding Assessment /Plan Assessment (1) Chronic respiratory failure with hypoxia and hypercapnia -currently at baseline -continue supplemental O2 with parameters to keep >90 (2) COPD (chronic obstructive pulmonary disease) -continue Prednisone 20 mg po daily -continue symbicort and spiriva (3) Thyroid nodule -outpatient follow up with PCP: Dr. Baker in [place] (4) Leukocytosis -has been treated and completed couse of antibiotic therapy -evaluated by ID-apprectiate input (5) NSTEMI (non-ST elevated myocardial infarction) - Occurred during recent acute hospitalization-in the setting of pneumonia, thought to probably be tropopnin elevation from demand ischemia -Continue Plavix, Atorvastatin, and Aspirin 81 mg po daily. (6) Pneumonia - Pneumococcal pneumonia with possibly parainfluenza pneumonia -completed 12 day course of meropenem and azithromycin (7) HTN (hypertension) -- Continue Captopril and Carvedilol. Stable. (8) Pulmonary hypertension -Chronic -continue respiratory support -continue lasix Acute Diastolic Heart Failure --continue lasix _fluid restriction -monitoring of electrolytes to keep K+>4 and Mg >2 Plan/VTE VTE Prophylaxis Ordered?: Yes (Plavix, ASA) VS, I&O, 24H, Fishbone Vital Signs/I&O Vital Signs Date Time Temp Pulse Resp B/P (MAP) Pulse Ox O2 Delivery O2 Flow Rate FiO2 11/01/18 09:01 95 120/73 11/01/18 07:15 2.0 11/01/18 06:00 99.2 19 97 10/28/18 23:36 Nasal Cannula I&O- Last 24 Hours up to 6 AM 11/01/18 06:00 Intake Total 1980 ml Output Total 1910 ml Balance 70 ml Laboratory Data 24H LABS Laboratory Tests 2 11/01/18 06:02: Nucleated Red Blood Cells % (auto) 0.0, Neutrophils 83H, Band Neutrophils 1, Lymphocytes (Manual) 8L, Monocytes (Manual) 6, Eosinophils (Manual) 1, Atypical Lymphocytes 1, Platelet Estimate INCREASED, Anisocytosis 1+, Anion Gap 4L, Glomerular Filtration Rate > 60.0, Blood Urea Nitrogen 11, Creatinine 0.64, Sodium Level 135L, Potassium Level 5.0, Chloride Level 95L, Carbon Dioxide Level 36H, Calcium Level 9.1 CBC/BMP Laboratory Tests 11/01/18 06:02 Red Blood Count 2.55 L, Mean Corpuscular Volume 95.3, Mean Corpuscular Hemoglobin 29.8, Mean Corpuscular Hemoglobin Concent 31.3 L, Red Cell Distribution Width 13.4, Calcium Level 9.1 SHILPA COLEMAN November 01, 2018 12:15
[2018-11-01 14:00] VITALS: BP 107/55
[2018-11-01 20:00] VITALS: BP 160/74
[2018-11-01] MEDS: ATORVASTATIN 10 MG TAB PO SCH (21:02)
[2018-11-01] MEDS: SENNA 8.6 MG TAB (SENOKOT) PO SCH (21:02)
[2018-11-01] MEDS: ACETAMINOPHEN TAB 650MG DOSE (2X325MG) PO PRN (21:02)
[2018-11-02] MEDS: LEVALBUTEROL 1.25 MG/0.5 ML CONCENTRATE NEB INH SCH ×5 (00:07→15:20)
[2018-11-02 06:00] VITALS: BP 150/76
[2018-11-02 06:39] LABS: BASO % 0.2 % (0.0-1.0); EOS # 0.2 10^3/uL (0.0-0.50); EOS % 1.2 % (0.0-3.0); HEMATOCRIT 25.9 % (36.0-47.0); LYMPH # 1.1 10^3/uL (1.5-4.5); LYMPH % 6.6 % (24.0-44.0); MEAN CORPUSCULAR HEMOGLOBIN 29.5 pg (27.0-33.0); MEAN CORPUSCULAR HGB CONC 30.9 g/dl (32.0-36.5); MEAN CORPUSCULAR VOLUME 95.6 fl (80.0-96.0); MONO # 1.5 10^3/uL (0.0-0.8); MONO % 9.4 % (0.0-5.0); NEUTROPHILS % 80.9 % (36.0-66.0); PLATELET COUNT, AUTOMATED 660 10^3/uL (150-450); RED BLOOD COUNT 2.71 10^6/uL (4.00-5.40); WHITE BLOOD COUNT 16.1 10^3/uL (4.0-10.0)
[2018-11-02] MEDS: TIOTROPIUM INHALER/CAPSULE (SPIRIVA) INH SCH (07:22)
[2018-11-02] MEDS: SYMBICORT 160/4.5MCG INHALER 6GM INH SCH (07:22)
[2018-11-02] MEDS: DOCUSATE SODIUM 100 MG CAP PO SCH (08:23)
[2018-11-02] MEDS: SALIVA SUBSTITUTE(MOUTHKOTE) BTL MT SCH ×2 (08:23→16:35)
[2018-11-02] MEDS: FERROUS SULFATE 325MG TAB PO SCH (08:23)
[2018-11-02] MEDS: FUROSEMIDE 20 MG TAB PO SCH (08:23)
[2018-11-02 08:24] VITALS: BP 150/76
[2018-11-02] MEDS: CARVedilol 12.5 MG TAB PO SCH (08:24)
[2018-11-02] MEDS: predniSONE 20 MG TAB PO SCH (08:24)
[2018-11-02] MEDS: CLOPIDOGREL 75 MG TAB PO SCH (08:24)
[2018-11-02] MEDS: LORATADINE 10 MG TAB PO SCH (08:24)
[2018-11-02] MEDS: PANTOPRAZOLE 40MG TAB (PROTONIX) PO SCH (08:25)
[2018-11-02] MEDS: CAPTOpril 3.125 MG PER 1/4 TABLET PO SCH (08:25)
[2018-11-02] MEDS: ASPIRIN 81 MG CHEW TABLET PO SCH (08:25)
[2018-11-02] MEDS: ACETAMINOPHEN TAB 650MG DOSE (2X325MG) PO PRN ×2 (08:26→16:35)
[2018-11-02] MEDS: SIMETHICONE 80 MG CHEW TAB PO SCH ×2 (08:26→16:34)
[2018-11-02] MEDS ORDERED: POTASSIUM CHLORIDE 10 MEQ SR TABLET PO SCH (09:00)
[2018-11-02] MEDS ORDERED: COMBAER6 INH (10:44)
[2018-11-02] MEDS ORDERED: SYMB16INH INH (10:45)
[2018-11-02] MEDS ORDERED: CLAR10CA3 PO (10:45)
[2018-11-02] MEDS ORDERED: FURO20TA2 PO (10:45)
[2018-11-02] MEDS ORDERED: FERR325T18 PO (10:45)
[2018-11-02] MEDS ORDERED: NITR4TASL SL (10:45)
[2018-11-02] MEDS ORDERED: CARV12.5 PO (10:45)
[2018-11-02] MEDS ORDERED: PRED20TA PO ×2 (10:45→14:47)
[2018-11-02] MEDS ORDERED: LEVA12INH INH (10:45)
[2018-11-02] MEDS ORDERED: KLOR10TA76 PO (10:45)
[2018-11-02] MEDS ORDERED: TIOT18INH INH (10:45)
[2018-11-02] MEDS ORDERED: ASPI81CH8 PO (10:45)
[2018-11-02] MEDS ORDERED: CAPT31TA PO (10:45)
[2018-11-02] MEDS ORDERED: ATOR1TAB19 PO (10:45)
[2018-11-02] MEDS ORDERED: SIME80TA PO (10:45)
[2018-11-02] MEDS ORDERED: PANT40TA3 PO (10:45)
[2018-11-02] MEDS ORDERED: FLON1SPR (10:45)
[2018-11-02 14:00] VITALS: BP 129/61
--- NOTE | 2018-11-02 15:55 | PMRDS ---
DATE OF ADMISSION: 10/27/2018 DATE OF DISCHARGE: 11/02/2018 CHIEF COMPLAINT/DISCHARGE DIAGNOSIS: Recent pneumonia with chronic obstructive pulmonary disease (COPD) exacerbation and [id number] myocardial infarction (NSTEMI). HISTORY OF PRESENT ILLNESS: This is an 83-year-old female with a past medical history of chronic obstructive pulmonary disease (COPD) on two liters of oxygen at home, hypertension and hyperlipidemia who initially presented to [facility] with one week of cough and worsening dyspnea, was placed on antibiotics and nebulizer treatments without resolution of her symptoms. She was placed on bilevel positive airway pressure (BiPAP) and transferred to [facility] ([facility] Emergency Department (ED) on 10/08/2018. On arrival, chest x-ray showed "bilateral lower lobe infiltrate consistent with pneumonia." A nasal swab was positive for parainfluenza. She was admitted for acute hypoxic and hypercapnia, respiratory failure, and started on IV Solu-Medrol and continued on BiPAP. She was found to have elevated cardiac markers and EKG findings without ST elevations for which she was placed on Lovenox for dif-YM-mvemmzfwo myocardial infarction (NSTEMI) treatment. Echocardiogram on 10/09/2018 revealed "normal left ventricular size, wall thickness and hyperkinetic wall motion." Pulmonology was consulted and it was recommended to continue meropenem and azithromycin and to wean off systemic corticosteroids. She was evaluated by therapy, found to have deficiencies in gait and activities of daily living (ADLs) compared to her prior level of function, and deemed medically appropriate for discharge to acute rehabilitation unit (ARU) on 10/14/2018 where she initially made significant functional gains. However, she complained of abdominal cramping with a positive fecal occult blood test. CT chest on 10/17/2018 showed "there are parenchymal nodules in the lungs as described above, neoplasm cannot be excluded," and CT abdomen and pelvis showed "there is irregular heterogeneous mass in the pelvic contiguous with the uterus and sigmoid colon, this appears to be a mass arising from the sigmoid colon." The patient later had blood in her stool for which gastroenterology consult was placed. Her Lovenox and Plavix were held with colonoscopy on 10/21/2018 revealing "severe tortuosity of extrinsic compression in the mid sigmoid colon, on 10 mm polyp at the appendiceal orifice, one 20 mm polyp in the mid sigmoid colon, moderate diverticulosis in the sigmoid colon, significant spasm, internal hemorrhoids." Gastroenterology recommended to restart Plavix one week from date of colonoscopy. The next day, the patient developed worsening shortness of breath with worsening abdominal cramping and was discharged to ARU for suspected persistent pneumonia. She was placed back on IV meropenem. Her leukocytosis gradually decreased, was thought to be in part from steroids and reaction to gastrointestinal (GI) bleed. Repeat respiratory panel was negative. She was evaluated by infectious disease (ID) who recommended taking the patient off antibiotics. The patient continued to demonstrate a decline in overall function with gait and ADL deficits and deemed medically appropriate for discharge to ARU on 10/27/2018. PAST MEDICAL HISTORY: As per history of present illness (HPI). HOSPITAL COURSE: The patient was admitted and enrolled in a comprehensive physical therapy (PT), occupational therapy (OT) program. She received 24-hour nursing supervision and weekly team meetings were held to discuss her progress. The patient was restarted on Plavix and her hemoglobin and hematocrit was monitored daily. On 11/01/2018, her hemoglobin dropped to 7.6. The patient was asymptomatic and decision was made to repeat her blood counts the following day to determine whether or not a blood transfusion would be appropriate. She remained on steroids and off of antibiotics with improvements in her overall pulmonary function. She had no further episodes of active gastrointestinal (GI) bleed and was maintained on Lasix for her lower extremity edema. On the day of discharge, the patient's hemoglobin ariana to 8 and the decision was made to hold Plavix until repeat blood draw per her primary care physician to avoid possible fluid overload on day of discharge. The patient was advised to followup with her primary care physician regarding masses seen on imaging and the patient was instructed to followup with her primary care physician and supervisor trust accounts regarding her steroid taper and regarding the restarting of her Plavix which was discontinued on day of discharge from acute rehabilitation for drop in hemoglobin and hematocrit. She was deemed functionally and medically stable to return to home with home services. DISCHARGE MEDICATIONS: - potassium chloride 40 daily - prednisone 20 daily - Tylenol - alprazolam 0.125 by mouth three times a day - aspirin 81 daily - atorvastatin 10 at bedtime - Symbicort - captopril 3.125 by mouth twice a day - carvedilol 25 by mouth twice a day - Colace - iron - fluticasone - Lasix 20 daily - ipratropium - levalbuterol - Protonix 40 twice a day - prednisone 20 daily - simethicone 80 three times a day - Spiriva one inhalation daily FUNCTIONAL HISTORY: Upon discharge, the patient was modified independent for all functional transfers and ambulation times 50 feet using a four-wheeled walker without loss of balance and able to manipulate her tubing. In occupational therapy, the patient was modified independent again with functional transfers, able to walk greater than 150 feet, modified independent for bathing, upper and lower body dressing, toileting, eating. She was provided with followup appointments through her primary care physician, her supervisor trust accounts, and home services.
== END 2018-11-02 17:40 | disposition home health service (06) | DRG 91 ==
LOC: M PM&R 13:45
PROVIDERS: ADMIT Physical Medicine & Rehabilitation; ATTEND Physical Medicine & Rehabilitation
DX: R26.89 Other abnormalities of gait and mobility (principal); J96.21 Acute and chronic respiratory failure with hypoxia; R91.8 Other nonspecific abnormal finding of lung field; Z66 Do not resuscitate; J44.9 Chronic obstructive pulmonary disease, unspecified; I48.91 Unspecified atrial fibrillation; I27.20 Pulmonary hypertension, unspecified; D72.829 Elevated white blood cell count, unspecified; E04.1 Nontoxic single thyroid nodule; I25.2 Old myocardial infarction; I10 Essential (primary) hypertension; E78.5 Hyperlipidemia, unspecified; Z79.82 Long term (current) use of aspirin; Z79.899 Other long term (current) drug therapy; Z88.0 Allergy status to penicillin; Z85.3 Personal history of malignant neoplasm of breast; Z99.81 Dependence on supplemental oxygen